=== PATIENT | female | born 1965 | race Caucasian/White ===

== ENCOUNTER → 2019-02-21 08:07 | Outpatient (BNVA) | payer MEDICAID, SELFPAY | PROVIDERS: Family Provider Nurse Practitioner; PCP Nurse Practitioner; Visit Provider Anesthesiology | DX: G89.29 Other chronic pain (principal); M54.5 Low back pain; M25.552 Pain in left hip; Z79.891 Long term (current) use of opiate analgesic | CPT/HCPCS: 99214 ==

== ENCOUNTER → 2019-03-21 09:50 | Outpatient (BNVA) | payer MEDICAID, SELFPAY | PROVIDERS: Family Provider Nurse Practitioner; PCP Nurse Practitioner; Visit Provider Nurse Practitioner | DX: E11.65 Type 2 diabetes mellitus with hyperglycemia (principal); J45.909 Unspecified asthma, uncomplicated; K21.9 Gastro-esophageal reflux disease without esophagitis; E03.8 Other specified hypothyroidism; R11.0 Nausea; R19.7 Diarrhea, unspecified; Z79.4 Long term (current) use of insulin; Z86.711 Personal history of pulmonary embolism | CPT/HCPCS: 80053; 80061; 81003; 83036 ==

== ENCOUNTER → 2019-04-17 11:49 | Outpatient (BNVA) | payer MEDICAID, SELFPAY | PROVIDERS: Family Provider Nurse Practitioner; PCP Nurse Practitioner; Visit Provider Nurse Practitioner | DX: F31.70 Bipolar disorder, currently in remission, most recent episode unspecified (principal); F41.1 Generalized anxiety disorder; F43.12 Post-traumatic stress disorder, chronic; G89.29 Other chronic pain; M54.5 Low back pain; M25.552 Pain in left hip; Z86.711 Personal history of pulmonary embolism; Z79.891 Long term (current) use of opiate analgesic | CPT/HCPCS: 99213; 99214 ==

== ENCOUNTER → 2019-04-22 10:27 | Outpatient (BNVA) | payer MEDICAID, SELFPAY | PROVIDERS: Family Provider Nurse Practitioner; PCP Nurse Practitioner; Visit Provider Counselor Professional | DX: F43.12 Post-traumatic stress disorder, chronic (principal); F41.1 Generalized anxiety disorder; F31.70 Bipolar disorder, currently in remission, most recent episode unspecified | CPT/HCPCS: 90834 ==

== ENCOUNTER → 2019-05-07 10:05 | Outpatient (BNVA) | payer MEDICAID, SELFPAY | PROVIDERS: Family Provider Nurse Practitioner; PCP Nurse Practitioner; Visit Provider Specialist | DX: G40.909 Epilepsy, unspecified, not intractable, without status epilepticus (principal); F43.10 Post-traumatic stress disorder, unspecified; F31.9 Bipolar disorder, unspecified | CPT/HCPCS: 99213 ==

== ENCOUNTER → 2019-05-20 07:58 | Outpatient (BNVA) | payer MEDICAID, SELFPAY | PROVIDERS: Family Provider Nurse Practitioner; PCP Nurse Practitioner; Visit Provider Counselor Professional | DX: F41.1 Generalized anxiety disorder (principal); F43.12 Post-traumatic stress disorder, chronic; F31.70 Bipolar disorder, currently in remission, most recent episode unspecified | CPT/HCPCS: 90834 ==

== ENCOUNTER → 2019-06-03 08:31 | Outpatient (BNVA) | payer MEDICAID, SELFPAY | PROVIDERS: Family Provider Nurse Practitioner; PCP Nurse Practitioner; Visit Provider Counselor Professional | DX: F43.12 Post-traumatic stress disorder, chronic (principal); F41.1 Generalized anxiety disorder; F31.70 Bipolar disorder, currently in remission, most recent episode unspecified | CPT/HCPCS: 90834 ==

== ENCOUNTER → 2019-06-10 08:27 | Outpatient (BNVA) | payer MEDICAID, SELFPAY | PROVIDERS: Family Provider Nurse Practitioner; PCP Nurse Practitioner; Visit Provider Counselor Professional | DX: F43.12 Post-traumatic stress disorder, chronic (principal); F41.1 Generalized anxiety disorder; F31.70 Bipolar disorder, currently in remission, most recent episode unspecified | CPT/HCPCS: 90832 ==

== ENCOUNTER → 2019-06-20 07:43 | Outpatient (BNVA) | payer MEDICAID, SELFPAY | PROVIDERS: Family Provider Nurse Practitioner; PCP Nurse Practitioner; Visit Provider Nurse Practitioner | DX: F43.12 Post-traumatic stress disorder, chronic (principal); F41.1 Generalized anxiety disorder | CPT/HCPCS: 99214 ==

== ENCOUNTER → 2019-06-24 08:45 | Outpatient (BNVA) | payer MEDICAID, SELFPAY | PROVIDERS: Family Provider Nurse Practitioner; PCP Nurse Practitioner; Visit Provider Counselor Professional | DX: F43.12 Post-traumatic stress disorder, chronic (principal); F41.1 Generalized anxiety disorder; F31.70 Bipolar disorder, currently in remission, most recent episode unspecified | CPT/HCPCS: 90834 ==

== ENCOUNTER → 2019-07-10 09:08 | Outpatient (BNVA) | payer MEDICAID, SELFPAY | PROVIDERS: Family Provider Nurse Practitioner; PCP Nurse Practitioner; Visit Provider Counselor Professional | DX: F41.1 Generalized anxiety disorder (principal); F43.12 Post-traumatic stress disorder, chronic | CPT/HCPCS: 90834 ==

== ENCOUNTER → 2019-07-17 08:28 | Outpatient (BNVA) | payer MEDICAID, SELFPAY | PROVIDERS: Family Provider Nurse Practitioner; PCP Nurse Practitioner; Visit Provider Counselor Professional | DX: F43.12 Post-traumatic stress disorder, chronic (principal); F41.1 Generalized anxiety disorder; F31.70 Bipolar disorder, currently in remission, most recent episode unspecified | CPT/HCPCS: 90834 ==

== ENCOUNTER → 2019-07-30 07:55 | Outpatient (BNVA) | payer MEDICAID, SELFPAY | PROVIDERS: Family Provider Nurse Practitioner; PCP Nurse Practitioner; Visit Provider Counselor Professional | DX: F43.12 Post-traumatic stress disorder, chronic (principal); F41.1 Generalized anxiety disorder; F31.70 Bipolar disorder, currently in remission, most recent episode unspecified | CPT/HCPCS: 90834 ==

== ENCOUNTER 2019-08-05 13:07 | Emergency (ER) | payer MEDICAID, SELFPAY | END 2019-08-05 18:32 | disposition admitted as inpatient to this hospital (09) | LOC: ER 08-06 00:33 | PROVIDERS: Emergency Provider Family Medicine; PCP Nurse Practitioner | DX: L02.211 Cutaneous abscess of abdominal wall (principal); E11.9 Type 2 diabetes mellitus without complications; Z79.4 Long term (current) use of insulin; E78.2 Mixed hyperlipidemia | CPT/HCPCS: 12345; 36415; 74177; 80053; 83036; 83605; 85025; 86140; 87040; 87070; 87077; 87186; 87205; 96365; 96375; 99283; 99285; J2270; J2765; J3370; J7050; Q9967 ==

== ENCOUNTER 2019-08-05 13:07 | Inpatient (IN) | payer MEDICAID, SELFPAY ==
[2019-08-05] VITALS (7 sets, daily range): BP systolic 104–126; BP diastolic 67–82; PULSE 88–106; RESP 12–20; TEMP 36.7–37; O2SAT 94–98; BMI 34.8
--- NOTE | 2019-08-05 16:12 | CTR_ITS ---
PROCEDURE INFORMATION: Exam: CT Abdomen And Pelvis With Contrast Exam date and time: 08/05/2019 4:41 PM Age: 53 years old Clinical indication: Other: Abscess on RT lower abd; Prior surgery; Surgery type: , hyst, appy, bowel, hernia, gb; Additional info: Abdominal wall abscess TECHNIQUE: Imaging protocol: Computed tomography of the abdomen and pelvis with intravenous contrast. Radiation optimization: All CT scans at this facility use at least one of these dose optimization techniques: automated exposure control; mA and/or kV adjustment per patient size (includes targeted exams where dose is matched to clinical indication); or iterative reconstruction. Contrast material: OMNI 300; Contrast volume: 95 ml; Contrast route: INTRAVENOUS (IV); COMPARISON: CT abdomen pelvis w con* [id number] 05/18/2017 2:52 PM RADIATION DOSE METRICS: Total DLP (mGy-cm): 1663.63 FINDINGS: Mediastinal space: A small hiatal hernia is present. Liver: The subcapsular mass right lobe of the liver image 36 is unchanged in size measuring 3.4 x 4.0 cm in size. This was previously biopsy. The remainder of the liver is homogeneous in density. Gallbladder and bile ducts: There has been a cholecystectomy. Pancreas: Normal. No ductal dilation. Spleen: Normal. No splenomegaly. Adrenals: Normal. No mass. Kidneys and ureters: There is no evidence of hydronephrosis. There is punctate nephrolithiasis. Stomach and bowel: There is a large amount of colonic stool compatible with diffuse constipation without impaction. Postoperative changes of a partial colectomy are noted. There is no evidence of intestinal perforation or obstruction. There is no evidence of colitis/diverticulitis. Appendix: No evidence of appendicitis. Intraperitoneal space: Unremarkable. No free air. No significant fluid collection. No abscess in the intraperitoneal cavity. Vasculature: The aorta demonstrates mild atherosclerotic calcification. Lymph nodes: Subcentimeter lymph nodes are noted in the groin right greater than left. There is no pathologic adenopathy. Bladder: There is nonspecific bladder wall thickening. This may be related to incomplete distention. Reproductive: There has been a hysterectomy. Bones/joints: Old left acetabular fracture with severe degenerative changes in the left hip are noted. Postoperative changes in the right femur partially imaged. There is no acute bony abnormality. Old postoperative changes left acetabulum are noted. Soft tissues: There is thickening of the skin surface and edema of the subcutaneous fat of the right lower abdominal wall/pannus compatible with cellulitis. There is no fluid collection or abscess. There is diastasis of the rectus abdominus muscles with midline ventral hernia containing fat and nonobstructed loops of bowel. CT/CT abdomen pelvis w con* [id number] IMPRESSION: 1. Probable cellulitis of the right lower abdominal wall. No abscess. 2. Unchanged masslike lesion in the right lobe of the liver that was previously biopsied. 3. Constipation. No bowel thickening or inflammatory changes. 4. Severe degenerative changes left hip with old left acetabular fracture deformity and postoperative changes. Radiation Dose CTDIVOL = (mGy): DLP = 1663.63 (mGy-cm)
[2019-08-05 16:28] LABS: Basophils # 0.1 10^3/uL (0.0-0.1); Basophils % 0.6 %; Eosinophils # 0.5 10^3/uL (0.0-0.8); Eosinophils % 5.5 %; Hematocrit 43.1 % (37.0-47.0); Hemoglobin 13.5 g/dL (11.5-15.3); Lymphocytes # 2.8 10^3/uL (0.8-4.8); Lymphocytes % 30.4 %; Mean Corpuscular HGB Conc 31.3 g/dL (30.0-36.0); Mean Corpuscular Hemoglobin 27.9 pg (28.0-34.0); Mean Platelet Volume 10.4 fL (7.4-10.4); Monocytes # 0.6 10^3/uL (0.2-0.9); Monocytes % 6.9 %; Neutrophils # 5.1 10^3/uL (1.8-7.7); Neutrophils % 55.9 %; Nucleated Red Blood Cells % 0 %; Platelet Count 315 10^3/cmm (130-400); Red Blood Count 4.84 10^6/uL (4.1-5.3); Red Cell Distribution Width 13.2 % (12.1-15.1); White Blood Count 9.1 10^3/uL (4.0-10.0)
[2019-08-05] MEDS: morphine 4 mg/mL SDV 1 mL IVP (16:29)
[2019-08-05] MEDS: metoclopramide 5 mg/mL SDV 2 mL 10 MG IVP (16:30)
[2019-08-05 16:46] LABS: Alanine Aminotransferase 24 U/L (0-33); Albumin Level 3.8 g/dL (3.5-5.2); Alkaline Phosphatase 160 IU/L (35-105); Anion Gap 17.9 (5-19); Aspartate Amino Transferase 18 U/L (0-32); Blood Urea Nitrogen 11 mg/dL (6-20); Calcium 9.1 mg/dL (8.5-10.5); Carbon Dioxide 23 mmol/L (22-29); Chloride 102 mmol/L (98-107); Globulin 2.9 g/dL (1.3-4.6); Glomerular Filtration Rate 87.9 mL/min (90-130); Glucose 334 mg/dL (65-115); Osmolality Calculated 297 mOsm/kg (285-295); Potassium 3.9 mmol/L (3.5-5.1); Sodium 139 mmol/L (136-145); Total Bilirubin 0.2 mg/dL (0.15-1.2); Total Protein 6.7 g/dL (6.6-8.7)
[2019-08-05] MEDS: iohexol 300 mg/mL 100 mL Btl IV (17:05)
[2019-08-05 17:32] LABS: C Reactive Protein 14.8 mg/L (0.0-4.9)
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
[2019-08-05 21:02] LABS: Alanine Aminotransferase 23 U/L (0-33); Albumin Level 3.9 g/dL (3.5-5.2); Alkaline Phosphatase 164 IU/L (35-105); Anion Gap 16.5 (5-19); Aspartate Amino Transferase 17 U/L (0-32); Blood Urea Nitrogen 10 mg/dL (6-20); Carbon Dioxide 26 mmol/L (22-29); Chloride 101 mmol/L (98-107); Globulin 2.7 g/dL (1.3-4.6); Glomerular Filtration Rate 87.9 mL/min (90-130); Glucose 296 mg/dL (65-115); Osmolality Calculated 297 mOsm/kg (285-295); Potassium 3.5 mmol/L (3.5-5.1); Sodium 140 mmol/L (136-145); Total Bilirubin 0.2 mg/dL (0.15-1.2); Total Protein 6.6 g/dL (6.6-8.7)
[2019-08-05 22:09] LABS: Glucose Point of Care 316 mg/dL (70-110)
[2019-08-05] MEDS: prazosin 1 mg Capsule PO (22:11)
[2019-08-05] MEDS: oxyCODONE-APAP 5-325 mg Tablet 1 TAB PO (22:11)
[2019-08-05] MEDS: morphine ER (12 HR) 15 mg Tablet PO (22:11)
[2019-08-05] MEDS: gabapentin 300 mg Capsule PO (22:11)
[2019-08-05] MEDS: methocarbamol 750 mg Tablet PO (22:11)
[2019-08-05 22:31] LABS: Gamma Glutamyl Transferase 57 U/L (5-36)
[2019-08-05] MEDS: levETIRAcetam 500 mg Tablet PO (22:42)
[2019-08-05] MEDS: montelukast sodium 10 mg Tablet PO (22:42)
[2019-08-05] MEDS: CELEcoxib 200 mg Capsule PO (22:42)
[2019-08-05] MEDS: zonisamide 100 MG Capsule 400 MG PO (22:43)
[2019-08-05] MEDS: hyDROXYzine 25 mg Capsule PO (23:24)
[2019-08-06] VITALS (10 sets, daily range): BP systolic 95–111; BP diastolic 64–75; PULSE 76–92; RESP 16–20; TEMP 36.4–36.8; O2SAT 92–98
[2019-08-06] MEDS: morphine ER (12 HR) 15 mg Tablet PO ×3 (03:59→18:46)
[2019-08-06 06:35] LABS: Glucose Point of Care 198 mg/dL (70-110)
[2019-08-06 07:43] LABS: Basophils # 0.1 10^3/uL (0.0-0.1); Basophils % 0.6 %; Eosinophils # 0.5 10^3/uL (0.0-0.8); Eosinophils % 4.6 %; Hematocrit 43.5 % (37.0-47.0); Hemoglobin 13.6 g/dL (11.5-15.3); Mean Corpuscular HGB Conc 31.3 g/dL (30.0-36.0); Mean Corpuscular Hemoglobin 28.1 pg (28.0-34.0); Mean Corpuscular Volume 89.9 fL (81-99); Mean Platelet Volume 11.1 fL (7.4-10.4); Monocytes # 0.8 10^3/uL (0.2-0.9); Monocytes % 7.4 %; Neutrophils # 5.7 10^3/uL (1.8-7.7); Neutrophils % 50.8 %; Nucleated Red Blood Cells % 0 %; Platelet Count 342 10^3/cmm (130-400); Red Blood Count 4.84 10^6/uL (4.1-5.3); Red Cell Distribution Width 13.1 % (12.1-15.1); White Blood Count 11.2 10^3/uL (4.0-10.0)
[2019-08-06] MEDS: albuterol 8 gm MDI 1 PUFF INHALATION ×2 (08:12→20:43)
[2019-08-06] MEDS: CELEcoxib 200 mg Capsule PO ×2 (08:25→17:41)
[2019-08-06] MEDS: zonisamide 100 MG Capsule 400 MG PO (08:25)
[2019-08-06] MEDS: levETIRAcetam 500 mg Tablet PO ×2 (08:26→17:41)
[2019-08-06] MEDS: apixaban 5 mg Tablet PO ×2 (08:26→17:41)
[2019-08-06] MEDS: atorvastatin 40 mg Tablet PO (08:26)
[2019-08-06] MEDS: duloxetine 60 mg Capsule 120 MG PO (08:26)
[2019-08-06] MEDS: gabapentin 300 mg Capsule PO ×3 (08:26→21:32)
[2019-08-06] MEDS: thyroid 60 mg Tablet 120 MG PO (08:28)
[2019-08-06] MEDS: methocarbamol 750 mg Tablet PO ×2 (08:28→17:41)
[2019-08-06] MEDS: oxyCODONE-APAP 5-325 mg Tablet 1 TAB PO ×2 (08:29→17:41)
--- NOTE | 2019-08-06 09:45 | PC.CHAP ---
Pastoral Care Encounter/Spiritual Assessment Type of Contact [] Declined blind escort visit [] Patient/Family/Request visit [] Outpatient visit [] Follow-up visit [] Physician referral [] Code/Alert [x] Routine visit [] Staff referral [] Actively dying [x] Patient sleeping [] Family support [] [] Out of room [] Palliative care [] [] Receiving care in room [] Pre-surgical visit [] Trauma [] Long length of stay [] ICU visit [] Other: Relational/Emotional Strength [] Patient feels connected with others/family/visitors/staff [] Distress [] Loneliness/isolation [] Abandonment Spirituality of Patient [] Person of Amanda [] Attends Pentecostal of their Amanda [] Believes in Prayer [] Reads Bible or Mormonism materials [] There are Spiritual issues to be addressed [employer] Pumper Interventions [x] Prayer [] Active listening [] Non-anxious presence [] Spiritual/emotional support [] Crisis/trauma care [] Spiritual counseling [] Bereavement support [] Provided bereavement packet [] Provided Bible/devotional materials [] Provided toy/stuffed animal, coloring book to patient or family member [] Provided Communion [] Anointing/[place] [] Salvation [x] Completed spiritual assessment [] Other: Impact on Illness or Injury [] Angry [] Fearful [] Anxious [] Often cries [] Exhaustion [] Unable to work [] Unable to attend mandaen [] Unable to walk/stand [] Unable to read [] Unable to drive [] Unable to eat/drink [] Unable to sleep [] Unable to be with family [] Patient intubated [] Other: Summary Time spent with patient
[2019-08-06 11:57] LABS: Glucose Point of Care 334 mg/dL (70-110)
[2019-08-06] MEDS: levofloxacin-dextrose 5 % 750 MG/150 ML PREMIX 100 MG IV (14:57)
[2019-08-06 15:31] LABS: Lactic Sepsis W/Reflex 1.3 mmol/L (0.5-2.2)
[2019-08-06 17:19] LABS: Glucose Point of Care 213 mg/dL (70-110)
[2019-08-06] MEDS: lurasidone 20 mg Tablet 60 MG PO (17:41)
--- NOTE | 2019-08-06 17:55 | PC.RESP ---
Pulmonary Rehab information sent to patient.
--- NOTE | 2019-08-06 19:38 | US_ITS ---
WS: [id number] INDICATION: Evaluate for abscess TECHNIQUE: Ultrasound soft tissue FINDINGS: Ultrasound soft tissue area of concern left axilla. No evidence of drainable abscess or flu id collection. Skin thickening consistent with cellulitis. Prominent lymph nodes likely reactive with maintained fatty hilum. US/US soft tissue/extremity 76899 IMPRESSION: No evidence of abscess or drainable fluid collection in the area of concern.
[2019-08-06 20:22] LABS: Glucose Point of Care 205 mg/dL (70-110)
--- NOTE | 2019-08-06 20:24 | P.PN_ITS ---
Subjective Subjective: Interval history: Area on the belly slightly tender and she feels like it is flaring up . Vitals/I&O/Wt Last Vital Signs Temp 98.2 F 08/06/19 16:00 Pulse 83 08/06/19 16:00 Resp 18 08/06/19 17:41 BP 95/64 08/06/19 16:00 Pulse Ox 95 08/06/19 16:00 08/06/19 08/06/19 08/06/19 06:59 14:59 22:59 Intake Total 200 / 450 300 / 300 490 / 790 Output Total 0 / 0 Balance 200 / 450 300 / 300 490 / 790 Weight last 48 hrs Weight 97.976 kg Physical Exam Const: COMMON NORMALS: no acute distress and patient oriented x3 NUTRITIONAL APPEARANCE: obese HENMT: COMMON NORMALS: oropharynx normal Neck/C-Spine: COMMON NORMALS: no JVD Resp: COMMON NORMALS: normal respiratory effort and clear to auscultation beka aterally AUSCULTATION: clear to auscultation bilaterally Cardio: COMMON NORMALS: no JVD, regular rhythm, S1 normal heart sound present, S2 normal heart sound present and No murmurs present (Cardio) RHYTHM: regular rhythm HEART SOUNDS: S1 normal heart sound present and S2 normal heart sound present GI: COMMON NORMALS: Normal to inspection, nondistended, normoactive bowel sounds present, Soft to palpation and non-tender PALPATION: Yes Soft to palpation Extremity: COMMON NORMALS: no joint enlargement and no pedal edema Neuro: COMMON NORMALS: patient oriented x3 and moves all extremities Skin: COMMON NORMALS: no rashes or lesions noted GENERAL SKIN EXAM: no rashes or lesions noted LESIONS: lesion noted (Unchanged ulceration about 3 cm in parameter on anterior right side abdomen, with surrounding and underlying induration and erythema extending about 7 cm more so laterally than superiorly/inferiorly. Small amount of purulent appearing drainage from the shallow ulceration noted on dressing. Tiny amount of necrotic tissue at the margins, without undermining or tunneling.) and other (2 papules noted in inferior posterior aspect of left axilla erythematous, without surrounding erythema or induration. No drainage noted.) Data : 08/06/19 07:10 08/05/19 20:30 Micro: Microbiology 08/05/19 16:15 Blood Culture - Preliminary Blood NEGATIVE TO DATE 08/05/19 16:20 Blood Culture - Preliminary Blood NEGATIVE TO DATE 08/06/19 13:03 Blood Culture - Preliminary Blood SPECIMEN COLLECTED 08/06/19 13:10 Blood Culture - Preliminary Blood SPECIMEN COLLECTED 08/05/19 17:33 Gram Stain - Final Abdomen A&P Assessment and plan (1) Cellulitis: Slight increase for a more obvious appearance of necrotic tissue at the base of the ulceration after application of Hydrofera Blue. Small papule which is deroofed and left axilla appears unchanged. No drainage. Discussed with the patient. Requested dressing changes be done with Santyl as well. Continue vancomycin, Levaquin on board due to diabetes, until some results from culture available. Today WBC count is up to 11.2. She is afebrile although earlier had some low- grade tach with heart in the 90s. Concern for possible sepsis. Requested blood cultures. Checked lactic acid and was normal. Long-term needs optimization of diabetes control. Discussed all the above with her, as well as need for follow-up with PCP and wound care after discharge. She is agreeable with assessment and plan, and questions were answered. Status: Acute Additional A&P Information Oscillated alk phos elevation: GGT with mild elevation. She has not had right upper quadrant pain. Would continue follow-up in outpatient setting. Other liver parameters are normal. DM2: At home she takes Byetta, farxIGA, Levemir and NovoLog sliding scale. Continue consistent carbohydrate diet. Here we will continue Levemir, rapid acting sliding scale. Continue follow-up with primary care provider after discharge. History of PE: Continue Eliquis Asthma, COPD: Not in exacerbation. Continue inhalers. PRIMITIVO: Continue nightly CPAP Seizure disorder: Continue medications. Follows up with neurology in office. Chronic pain: Continue her pain medications and muscle relaxers, continue follow-up with pain clinic. Hypothyroidism: Continue [place] Night terrors: Continue prazosin Other chronic conditions: Continue home medications for HLD, GERD, insomnia and others. Attestations Medical Necessity Statement*: Continue admission for assessment management of cellulitis, nonhealing ulceration on abdominal wall, concern for possible sepsis. Coding Level of Care Code Acute Civil Laboratory Technician for [facility] Diagnoses Cellulitis L03.90
[2019-08-06] MEDS: montelukast sodium 10 mg Tablet PO (21:32)
[2019-08-06] MEDS: prazosin 1 mg Capsule PO (21:32)
[2019-08-07] VITALS (12 sets, daily range): BP systolic 107–115; BP diastolic 67–75; PULSE 75–89; RESP 15–20; TEMP 36.5–36.9; O2SAT 91–98
[2019-08-07] MEDS: morphine ER (12 HR) 15 mg Tablet PO ×3 (03:58→20:40)
[2019-08-07 05:59] LABS: Basophils % 0.4 %; Eosinophils # 0.4 10^3/uL (0.0-0.8); Eosinophils % 4.4 %; Hematocrit 40.1 % (37.0-47.0); Hemoglobin 12.5 g/dL (11.5-15.3); Lymphocytes % 24.7 %; Mean Corpuscular HGB Conc 31.2 g/dL (30.0-36.0); Mean Corpuscular Hemoglobin 27.8 pg (28.0-34.0); Mean Corpuscular Volume 89.3 fL (81-99); Mean Platelet Volume 10.9 fL (7.4-10.4); Monocytes # 0.5 10^3/uL (0.2-0.9); Monocytes % 6.6 %; Neutrophils % 63.1 %; Nucleated Red Blood Cells % 0 %; Platelet Count 293 10^3/cmm (130-400); Red Blood Count 4.49 10^6/uL (4.1-5.3); Red Cell Distribution Width 13.2 % (12.1-15.1)
[2019-08-07 06:36] LABS: Alanine Aminotransferase 17 U/L (0-33); Albumin Level 3.4 g/dL (3.5-5.2); Alkaline Phosphatase 141 IU/L (35-105); Anion Gap 15.1 (5-19); Aspartate Amino Transferase 12 U/L (0-32); Blood Urea Nitrogen 15 mg/dL (6-20); Calcium 8.9 mg/dL (8.5-10.5); Carbon Dioxide 22 mmol/L (22-29); Chloride 107 mmol/L (98-107); Globulin 2.6 g/dL (1.3-4.6); Glomerular Filtration Rate 87.9 mL/min (90-130); Glucose 264 mg/dL (65-115); Osmolality Calculated 295 mOsm/kg (285-295); Potassium 4.1 mmol/L (3.5-5.1); Sodium 140 mmol/L (136-145); Total Bilirubin 0.2 mg/dL (0.15-1.2)
[2019-08-07 07:08] LABS: Glucose Point of Care 223 mg/dL (70-110)
[2019-08-07] MEDS: atorvastatin 40 mg Tablet PO (08:30)
[2019-08-07] MEDS: CELEcoxib 200 mg Capsule PO ×2 (08:30→18:11)
[2019-08-07] MEDS: duloxetine 60 mg Capsule 120 MG PO (08:30)
[2019-08-07] MEDS: thyroid 60 mg Tablet 120 MG PO (08:30)
[2019-08-07] MEDS: gabapentin 300 mg Capsule PO ×3 (08:31→20:40)
[2019-08-07] MEDS: zonisamide 100 MG Capsule 400 MG PO (08:31)
[2019-08-07] MEDS: apixaban 5 mg Tablet PO ×2 (08:31→18:11)
[2019-08-07] MEDS: levETIRAcetam 500 mg Tablet PO ×2 (08:31→18:11)
[2019-08-07] MEDS: oxyCODONE-APAP 5-325 mg Tablet 1 TAB PO ×2 (08:37→14:57)
[2019-08-07] MEDS: albuterol 8 gm MDI 1 PUFF INHALATION ×2 (08:40→19:57)
[2019-08-07] MEDS: methocarbamol 750 mg Tablet PO ×3 (08:48→23:04)
[2019-08-07 11:03] LABS: Glucose Point of Care 276 mg/dL (70-110)
[2019-08-07] MEDS: collagenase oint 30 gm 1 APPLIC TOPICAL (12:23)
[2019-08-07] MEDS: levofloxacin-dextrose 5 % 750 MG/150 ML PREMIX 100 MG IV (14:58)
[2019-08-07 16:43] LABS: Vancomycin Trough 13.6 ug/mL (10-15)
[2019-08-07 16:51] LABS: Glucose Point of Care 204 mg/dL (70-110)
[2019-08-07] MEDS: lurasidone 20 mg Tablet 60 MG PO (18:11)
--- NOTE | 2019-08-07 20:33 | P.PN_ITS ---
Subjective Subjective: Interval history: She is feeling about her usual self. Denies any chills. No abdominal or axilla pain. Vitals/I&O/Wt Last Vital Signs Temp 97.9 F 08/07/19 16:00 Pulse 80 08/07/19 20:01 Resp 18 08/07/19 19:56 BP 115/75 08/07/19 16:00 Pulse Ox 95 08/07/19 20:01 08/07/19 08/07/19 08/07/19 06:59 14:59 22:59 Intake Total 500 / 1440 460 / 460 470 / 930 Balance 500 / 1440 460 / 460 470 / 930 Physical Exam Const: COMMON NORMALS: no acute distress and patient oriented x3 NUTRITIONAL APPEARANCE: obese HENMT: COMMON NORMALS: oropharynx normal Neck/C-Spine: COMMON NORMALS: no JVD Resp: COMMON NORMALS: normal respiratory effort and clear to auscultation bilaterally AUSCULTATION: clear to auscultation bilaterally Cardio: COMMON NORMALS: no JVD, regular rhythm, S1 normal heart sound present, S2 normal heart sound present and No murmurs present (Cardio) RHYTHM: regular rhythm HEART SOUNDS: S1 normal heart sound present and S2 normal heart sound present GI: COMMON NORMALS: Normal to inspection, nondistended, normoactive bowel sounds present, Soft to palpation and non-tender PALPATION: Yes Soft to palpation Extremity: COMMON NORMALS: no joint enlargement and no pedal edema Neuro: COMMON NORMALS: patient oriented x3 and moves all extremities Skin: LESIONS: lesion noted (More necrotic tissue at the base of the ulcer on the abdomen, with reduction of surrounding erythema. Covered with Hydrofera Blue.) and other (2 papules noted in inferior posterior aspect of left axilla erythematous, without surrounding erythema or induration. No drainage noted.) Data : 08/07/19 05:25 08/07/19 05:25 Micro: Microbiology 08/06/19 13:10 Blood Culture - Preliminary Blood NEGATIVE TO DATE 08/06/19 13:03 Blood Culture - Preliminary Blood NEGATIVE TO DATE 08/05/19 17:33 Gram Stain - Final Abdomen Wound Culture - Preliminary Staphylococcus aureus 08/05/19 16:15 Blood Culture - Preliminary Blood NEGATIVE TO DATE 08/05/19 16:20 Blood Culture - Preliminary Blood NEGATIVE TO DATE A&P Assessment and plan (1) Cellulitis: Some improvement in area of cellulitis on the abdomen today. Some worsening of necrotic tissue at the base of the ulcer. Santyl was applied today. Cultures growing Staphylococcus aureus. Follow-up final results to assess if MRSA. Leukocytosis has resolved. No tachycardia. Lactic acid was normal. Appears possible sepsis resolving. If continues to improve, and we can get culture results back, perhaps may transition to oral antibiotics and discharged with wound care follow-up. Small papule which is deroofed and left axilla appears unchanged. No drainable fluid collection noted on ultrasound. Continue vancomycin, will stop Levaquin on board due to diabetes, until some results from culture available. Today WBC count is up to 11.2. She is afebrile although earlier had some low- grade tach with heart in the 90s. Concern for possible sepsis. Requested blood cultures. Checked lactic acid and was normal. Long-term needs optimization of diabetes control. Discussed all the above with her, as well as need for follow-up with PCP and wound care after discharge. She is agreeable with assessment and plan, and questions were answered. Status: Acute Additional A&P Information Isolated alk phos elevation: GGT with mild elevation. She has not had right upper quadrant pain. Would continue follow-up in outpatient setting. Other liver parameters are normal. DM2: At home she takes Byetta, farxIGA, Levemir and NovoLog sliding scale. Continue consistent carbohydrate diet. Here we will continue Levemir, rapid ac ting sliding scale. Continue follow-up with primary care provider after discharge. History of PE: Continue Eliquis Asthma, COPD: Not in exacerbation. Continue inhalers. PRIMITIVO: Continue nightly CPAP Seizure disorder: Continue medications. Follows up with neurology in office. Chronic pain: Continue her pain medications and muscle relaxers, continue follow-up with pain clinic. Hypothyroidism: Continue [place] Night terrors: Continue prazosin Other chronic conditions: Continue home medications for HLD, GERD, insomnia and others. Attestations Medical Necessity Statement*: Continue admission for assessment management of cellulitis, wound infection in the setting of poorly controlled diabetes, failed attempt at outpatient management. Coding Level of Care Code Acute Instructor Creeler for [facility] Diagnoses Cellulitis L03.90
[2019-08-07] MEDS: prazosin 1 mg Capsule PO (20:40)
[2019-08-07] MEDS: montelukast sodium 10 mg Tablet PO (20:40)
[2019-08-07 21:03] LABS: Glucose Point of Care 240 mg/dL (70-110)
[2019-08-08] VITALS (8 sets, daily range): BP systolic 102–108; BP diastolic 60–66; PULSE 70–84; RESP 16–18; TEMP 36.4–36.6; O2SAT 95–96
[2019-08-08] MEDS: morphine ER (12 HR) 15 mg Tablet PO ×2 (03:53→11:43)
[2019-08-08 05:42] LABS: Basophils % 0.5 %; Eosinophils # 0.4 10^3/uL (0.0-0.8); Hematocrit 40.8 % (37.0-47.0); Hemoglobin 12.3 g/dL (11.5-15.3); Lymphocytes # 2.3 10^3/uL (0.8-4.8); Lymphocytes % 26.9 %; Mean Corpuscular HGB Conc 30.1 g/dL (30.0-36.0); Mean Corpuscular Hemoglobin 27.5 pg (28.0-34.0); Mean Corpuscular Volume 91.1 fL (81-99); Mean Platelet Volume 11.3 fL (7.4-10.4); Monocytes # 0.7 10^3/uL (0.2-0.9); Monocytes % 8.1 %; Neutrophils # 4.9 10^3/uL (1.8-7.7); Neutrophils % 58.8 %; Nucleated Red Blood Cells % 0 %; Platelet Count 319 10^3/cmm (130-400); Red Blood Count 4.48 10^6/uL (4.1-5.3); Red Cell Distribution Width 13.4 % (12.1-15.1); White Blood Count 8.4 10^3/uL (4.0-10.0)
[2019-08-08 06:00] LABS: Alanine Aminotransferase 16 U/L (0-33); Albumin Level 3.2 g/dL (3.5-5.2); Alkaline Phosphatase 128 IU/L (35-105); Aspartate Amino Transferase 14 U/L (0-32); Blood Urea Nitrogen 13 mg/dL (6-20); Calcium 8.5 mg/dL (8.5-10.5); Carbon Dioxide 21 mmol/L (22-29); Chloride 108 mmol/L (98-107); Globulin 2.9 g/dL (1.3-4.6); Glucose 268 mg/dL (65-115); Osmolality Calculated 296 mOsm/kg (285-295); Sodium 140 mmol/L (136-145); Total Bilirubin 0.2 mg/dL (0.15-1.2); Total Protein 6.1 g/dL (6.6-8.7)
[2019-08-08 07:07] LABS: Glucose Point of Care 195 mg/dL (70-110)
[2019-08-08] MEDS: duloxetine 60 mg Capsule 120 MG PO (08:13)
[2019-08-08] MEDS: CELEcoxib 200 mg Capsule PO (08:14)
[2019-08-08] MEDS: oxyCODONE-APAP 5-325 mg Tablet 1 TAB PO (08:14)
[2019-08-08] MEDS: atorvastatin 40 mg Tablet PO (08:14)
[2019-08-08] MEDS: gabapentin 300 mg Capsule PO (08:14)
[2019-08-08] MEDS: levETIRAcetam 500 mg Tablet PO (08:14)
[2019-08-08] MEDS: zonisamide 100 MG Capsule 400 MG PO (08:15)
[2019-08-08] MEDS: methocarbamol 750 mg Tablet PO (08:16)
[2019-08-08] MEDS: apixaban 5 mg Tablet PO (09:00)
[2019-08-08] MEDS: thyroid 60 mg Tablet 120 MG PO (09:00)
[2019-08-08] MEDS: collagenase oint 30 gm 1 APPLIC TOPICAL (09:00)
[2019-08-08] MEDS: albuterol 8 gm MDI 1 PUFF INHALATION (09:13)
[2019-08-08 11:03] LABS: Glucose Point of Care 279 mg/dL (70-110)
--- NOTE | 2019-08-08 12:24 | P.DS_ITS ---
Discharge Providers Date of Admission: 08/05/19 18:00 Date of Discharge: August 08, 2019 Attending Provider at Admission: Jeremy Rosa Attending Provider at Discharge: Jeremy Rosa Primary Care Provider: HAKAN Irvin Diagnoses at Discharge Discharge Diagnosis (1) Cellulitis: Status: Acute Problem details: MRSA. Ulcer + cellulitis. Suboptimally controlled DM. Reason for Visit Reason for Visit: sent by doc Hospital Course Hospital Course: Pleasant 53-year-old lady with history of diabetes, and other comorbidities, with noted A1c of 8.5, was admitted for assessment of management of wound/ulceration on anterior abdominal wall with surrounding cellulitis which did not respond to outpatient treatment with topical antibiotic. She was also found to have a small reddish papule in the left armpit with some surrounding swelling initially. She was treated with IV antibiotics, with noted possible sepsis in the hospital with leukocytosis, tachycardia. Wound cultures eventually growing MRSA and group B strep. Her leukocytosis and other signs of sepsis resolved. She is feeling better. Erythema is improving. There is a swelling under the ulceration which is somewhat persistent, with mild improvement since admission, however, still there. On admission was assessed by CT scan due to this, and without finding of any drainable abscess. Left armpit abscess by ultrasonography also without finding of drainable effusion. She is referred to wound care clinic, as well as primary care provider for follow-up on wound healing, please reassess for any need of IND in case of any worsening or lack of improvement. Due to thin layer of necrotic tissue at the base of the ulcer, she is instructed to change dressings with Santyl for enzymatic debridement. Please continue working with her to optimize control of diabetes. Consider MRSA eradication therapy. Avoid steroids or immunosuppressive medications. Physical Exam Const: COMMON NORMALS: no acute distress and patient oriented x3 NUTRITIONAL APPEARANCE: obese OTHER: She is feeling better and is wanting to go home. HENMT: COMMON NORMALS: oropharynx normal Neck/C-Spine: COMMON NORMALS: no JVD Resp: COMMON NORMALS: normal respiratory effort and clear to auscultation bilaterally AUSCULTATION: clear to auscultation bilaterally Cardio: COMMON NORMALS: no JVD, regular rhythm, S1 normal heart sound present, S2 normal heart sound present and No murmurs present (Cardio) RHYTHM: regular rhythm HEART SOUNDS: S1 normal heart sound present and S2 normal heart sound present GI: COMMON NORMALS: Normal to inspection, nondistended, normoactive bowel sounds present, Soft to palpation and non-tender PALPATION: Yes Soft to palpation Extremity: COMMON NORMALS: no joint enlargement and no pedal edema Neuro: COMMON NORMALS: patient oriented x3 and moves all extremities Skin: COMMON NORMALS: no rashes or lesions noted GENERAL SKIN EXAM: no rashes or lesions noted LESIONS: lesion noted (More necrotic tissue at the base of the ulcer on the abdomen, with reduction of surrounding erythema. Covered with Hydrofera Blue.) and other (2 papules noted in inferior posterior aspect of left axilla erythematous, without surrounding erythema or induration. No drainage noted.) Discharge Data Data Completed and Pending: Completed Studies During Hospitalization Category Date Time Status CT abdomen pelvis w con* [id number] Urge nt Cat Scan 08/05/19 16:12 Completed US soft tissue/ex tremity 27683 Rout ine Ultrasound 08/06/19 19:38 Completed Pending at discharge Category Date Time Status Blood Culture Sta t Lab 08/05/19 16:15 Results Blood Culture Sta t Lab 08/06/19 13:03 Results Complete Blood Co unt w/Auto AM LABS Lab 08/09/19 04:00 Ordered Comprehensive Met abolic Panel AM LA BS Lab 08/09/19 04:00 Ordered Wound Culture and Gram Stain Stat Lab 08/05/19 17:33 Results Labs from last 24 hours 08/08/19 08/08/19 08/08/19 10:49 07:01 04:45 WBC RBC Hgb Hct MCV MCH MCHC RDW Plt Count MPV Neut % (Auto) Lymph % (Auto) [place] % (Auto) Eos % (Auto) Baso % (Auto) Neut # (Auto) Lymph # (Auto) [place] # (Auto) Eos # (Auto) Baso # (Auto) Nucleated RBC % (a uto) Nucleated RBCs # Sodium 140 Potassium 4.0 Chloride 108 H Carbon Dioxide 21 L Anion Gap 15.0 BUN 13 Creatinine 0.6 GFR Calculation 105.0 Glucose 268 H POC Glucose 279 195 Calculated Osmolal ity 296 H Calcium 8.5 Total Bilirubin 0.2 AST 14 ALT 16 Alkaline Phosphata se 128 H Total Protein 6.1 L Albumin 3.2 L Globulin 2.9 Vancomycin Trough 08/08/19 08/07/19 08/07/19 04:45 20:46 16:44 WBC 8.4 RBC 4.48 Hgb 12.3 Hct 40.8 MCV 91.1 MCH 27.5 L MCHC 30.1 RDW 13.4 Plt Count 319 MPV 11.3 H Neut % (Auto) 58.8 Lymph % (Auto) 26.9 [place] % (Auto) 8.1 Eos % (Auto) 5.0 Baso % (Auto) 0.5 Neut # (Auto) 4.9 Lymph # (Auto) 2.3 [place] # (Auto) 0.7 Eos # (Auto) 0.4 Baso # (Auto) 0.0 Nucleated RBC % (a uto) 0 Nucleated RBCs # 0.0 Sodium Potassium Chloride Carbon Dioxide Anion Gap BUN Creatinine GFR Calculation Glucose POC Glucose 240 204 Calculated Osmolal ity Calcium Total Bilirubin AST ALT Alkaline Phosphata se Total Protein Albumin Globulin Vancomycin Trough 08/07/19 14:46 WBC RBC Hgb Hct MCV MCH MCHC RDW Plt Count MPV Neut % (Auto) Lymph % (Auto) [place] % (Auto) Eos % (Auto) Baso % (Auto) Neut # (Auto) Lymph # (Auto) [place] # (Auto) Eos # (Auto) Baso # (Auto) Nucleated RBC % (a uto) Nucleated RBCs # Sodium Potassium Chloride Carbon Dioxide Anion Gap BUN Creatinine GFR Calculation Glucose POC Glucose Calculated Osmolal ity Calcium Total Bilirubin AST ALT Alkaline Phosphata se Total Protein Albumin Globulin Vancomycin Trough 13.6 Vitals: Last Vital Signs Temp 97.8 F 08/08/19 11:15 Pulse 80 08/08/19 11:15 Resp 17 08/08/19 11:15 BP 108/62 08/08/19 11:15 Pulse Ox 96 08/08/19 11:15 Discharge Plan Discharge Patient Disposition: Home Health Service Condition: Stable Prescriptions: New levofloxacin [Levaquin] 750 mg tablet 750 mg PO DAILY 7 Days RF: 0 Continued Eliquis 5 mg tablet 5 mg PO BID Qty: 60 RF: 2 Byetta 10 mcg/dose(250 mcg/mL) 2.4 mL pen injector 10 mcg SUBCUT BID Qty: 2.4 RF: 2 albuterol sulfate [ProAir HFA] 90 mcg/actuation HFA aerosol inhaler 1 inh INHALATION QID PRN (Reason: shortness of breath or wheezing) Qty: 6.7 RF: 2 atorvastatin [Lipitor] 40 mg tablet 40 mg PO QDAY Qty: 30 RF: 2 cholecalciferol (vitamin D3) 125 mcg (5,000 unit) capsule 5,000 unit PO QDAY Qty: 30 RF: 2 Farxiga 10 mg tablet 10 mg PO QDAY Qty: 30 RF: 2 famotidine [Pepcid] 20 mg tablet 20 mg PO QDAY Qty: 30 RF: 2 Flovent HFA 110 mcg/actuation HFA aerosol inhaler 2 puff INHALATION BID Qty: 12 RF: 2 insulin aspart U-100 [Novolog Flexpen U-100 Insulin] 100 unit/mL (3 mL) insulin pen See Rx Instructions SUBCUT TID Qty: 15 RF: 2 Levemir FlexTouch U-100 Insuln 100 unit/mL (3 mL) insulin pen 54 unit SUBCUT DAILY Qty: 15 RF: 2 montelukast [Singulair] 10 mg tablet 10 mg PO QDAY Qty: 30 RF: 2 thyroid (pork) [Lovilia Thyroid] 120 mg tablet 120 mg PO QDAY Qty: 30 RF: 2 promethazine 25 mg tablet 25 mg PO Q6H PRN (Reason: nausea and vomiting) Qty: 20 RF: 0 loperamide 2 mg capsule 2 mg PO Q4H PRN (Reason: loose stool) Qty: 10 RF: 0 (DME) FreeStyle Lite Strips Strip See Rx Instructions .ROUTE .MEDSUPPLY Qty: 100 RF: 5 (DME) lancets [FreeStyle Lancets] 28 gauge misc See Rx Instructions .ROUTE .MEDSUPPLY Qty: 100 RF: 5 (DME) pen needle, diabetic [BD Lina 2nd Gen Pen Needle] 32 gauge x 5/32 needle See Rx Instructions .ROUTE .MEDSUPPLY Qty: 100 RF: 5 duloxetine [Cymbalta] 60 mg capsule,delayed release(DR/EC) 120 mg PO DAILY Qty: 60 RF: 2 Latuda 60 mg tablet 60 mg PO DAILY Qty: 30 RF: 2 prazosin 1 mg capsule 1 mg PO .HS Qty: 30 RF: 2 hydroxyzine pamoate 25 mg capsule 25 mg PO TID PRN (Reason: anxiety) Qty: 90 RF: 2 zolpidem [Ambien] 10 mg tablet 10 mg PO .at bed PRN (Reason: sleep) Qty: 30 RF: 2 celecoxib [Celebrex] 200 mg capsule 200 mg PO BID Qty: 60 RF: 1 gabapentin 300 mg capsule 300 mg PO TID 30 Days Qty: 90 RF: 1 methocarbamol 750 mg tablet 750 mg PO TID PRN (Reason: spasms) 30 Days Qty: 90 RF: 1 morphine 15 mg tablet extended release 15 mg PO Q8H 30 Days Qty: 90 RF: 0 levetiracetam [Keppra] 500 mg tablet 500 mg PO BID Qty: 60 RF: 4 zonisamide [Zonegran] 100 mg capsule 400 mg PO QDAY Qty: 120 RF: 5 oxycodone-acetaminophen [Percocet] 5-325 mg tablet 1 tab PO TID PRN (Reason: pain) 30 Days Qty: 90 RF: 0 Discontinued azithromycin [Zithromax] 250 mg tablet See Rx Instructions PO .COMPLEX Qty: 6 RF: 0 Discharge Orders: Discharge Order (Routine); Ordered 08/08/19 Ordered By: Jeremy Rosa Referrals: Wound Care [Provider Group] - 1 week (Abdominal and L armpit wounds. Needs an appointment and time called to Mariela Sunday for one week from today.) [facility] [Outside] [facility] [Outside] Addison Barkley FNP-C [Primary Care Provider] - 4-7 days Discharge Diet: Diabetic Discharge Activity: Increase activity as tolerated Activity Restrictions/Additional Instructions: Please clean abdominal wound daily with soap and water, apply Santyl, keep covered with Hydrofera Blue if possible, otherwise ABD, keep clean. Please see wound care clinic with regards to follow-up on progress on healing, and seek medical attention if there is any worsening of swelling, any pus draining from the wound, any high fevers, severe pain, or other abnormality. Please discuss with your primary care doctor both regarding the wound and redness on your belly, as well as the red papule in your left armpit. Please discuss with your doctor regarding MRSA infection. Please discuss also regarding benefits and risks of MRSA eradication therapy. Please avoid any steroids or immunosuppressive medications. Please work with your primary care doctor to improve control of glucose as your diabetes is not optimally controlled. Discharge Attestations Time Spent in Discharge Care*: greater than 30 min Quality Metrics Clinical Quality Measures During this hospital stay, did patient experience: None Coding Level of Care Code Acute Cable Respooler for [facility] Diagnoses Cellulitis L03.90
== END 2019-08-08 15:12 | disposition home health service (06) | DRG 602 ==
LOC: ER 15:57 → MEDSURG 18:23
PROVIDERS: Family Medicine; Admitting Provider Internal Medicine; PCP Nurse Practitioner; Visit Provider Internal Medicine
DX: L03.311 Cellulitis of abdominal wall (principal); A41.9 Sepsis, unspecified organism; I27.82 Chronic pulmonary embolism; F31.70 Bipolar disorder, currently in remission, most recent episode unspecified; F43.10 Post-traumatic stress disorder, unspecified; E11.9 Type 2 diabetes mellitus without complications; J44.9 Chronic obstructive pulmonary disease, unspecified; Z79.4 Long term (current) use of insulin; Z79.01 Long term (current) use of anticoagulants; Z86.711 Personal history of pulmonary embolism; G47.33 Obstructive sleep apnea (adult) (pediatric); E03.9 Hypothyroidism, unspecified; G89.29 Other chronic pain; G40.909 Epilepsy, unspecified, not intractable, without status epilepticus; K21.9 Gastro-esophageal reflux disease without esophagitis; Z79.891 Long term (current) use of opiate analgesic; F41.1 Generalized anxiety disorder; E55.9 Vitamin D deficiency, unspecified; E78.2 Mixed hyperlipidemia
CPT/HCPCS: 12345; 36415; 36416; 74177; 76882; 80053; 80202; 82962; 82977; 83036; 83605; 85025; 86140; 87040; 87070; 87077; 87186; 87205; 94640; 96372; 96375; 99283; J1815; J1956; J2270; J2765; J3370; J3535; J7050; Q9967

== ENCOUNTER → 2019-08-11 08:24 | Outpatient (BNVA) | payer MEDICAID, SELFPAY | PROVIDERS: PCP Nurse Practitioner; Visit Provider Counselor Professional | DX: F43.12 Post-traumatic stress disorder, chronic (principal); F41.1 Generalized anxiety disorder; F31.70 Bipolar disorder, currently in remission, most recent episode unspecified | CPT/HCPCS: 90832 ==

== ENCOUNTER → 2019-08-14 13:10 | Outpatient (BNVA) | payer MEDICAID, SELFPAY | PROVIDERS: Family Provider Nurse Practitioner; PCP Nurse Practitioner; Visit Provider Anesthesiology | DX: G89.29 Other chronic pain (principal); M54.42 Lumbago with sciatica, left side; M54.41 Lumbago with sciatica, right side; Z79.891 Long term (current) use of opiate analgesic | CPT/HCPCS: 99213; 99214 ==

== ENCOUNTER 2019-08-14 14:06 | Outpatient (CLI) | payer MEDICAID, SELFPAY | END 2019-08-14 14:07 | disposition home or self-care (01) | LOC: WOUND 14:07 | PROVIDERS: Family Provider Nurse Practitioner; PCP Nurse Practitioner; Visit Provider Surgery | DX: S31.103A Unspecified open wound of abdominal wall, right lower quadrant without penetration into peritoneal cavity, initial encounter (principal); X58.XXXA Exposure to other specified factors, initial encounter | CPT/HCPCS: 11042; G0463 ==

== ENCOUNTER → 2019-08-18 13:35 | Outpatient (BNVA) | payer MEDICAID, SELFPAY | PROVIDERS: PCP Nurse Practitioner; Visit Provider Nurse Practitioner | DX: L03.90 Cellulitis, unspecified (principal); E11.65 Type 2 diabetes mellitus with hyperglycemia; J45.909 Unspecified asthma, uncomplicated | CPT/HCPCS: 85025 ==

== ENCOUNTER → 2019-08-21 08:21 | Outpatient (BNVA) | payer MEDICAID, SELFPAY | PROVIDERS: PCP Nurse Practitioner; Visit Provider Counselor Professional | DX: F43.12 Post-traumatic stress disorder, chronic (principal); F31.70 Bipolar disorder, currently in remission, most recent episode unspecified; F41.1 Generalized anxiety disorder | CPT/HCPCS: 90834 ==

== ENCOUNTER 2019-08-21 14:55 | Outpatient (CLI) | payer MEDICAID, SELFPAY | END 2019-08-21 14:56 | disposition home or self-care (01) | PROVIDERS: PCP Nurse Practitioner; Visit Provider Emergency Medicine | DX: L08.9 Local infection of the skin and subcutaneous tissue, unspecified (principal); L98.492 Non-pressure chronic ulcer of skin of other sites with fat layer exposed | CPT/HCPCS: 11042 ==

== ENCOUNTER 2019-08-28 13:23 | Outpatient (CLI) | payer MEDICAID, SELFPAY | END 2019-08-28 13:24 | disposition home or self-care (01) | LOC: WOUND 13:26 | PROVIDERS: PCP Nurse Practitioner; Visit Provider Nurse Practitioner Family | DX: E11.622 Type 2 diabetes mellitus with other skin ulcer (principal); L98.492 Non-pressure chronic ulcer of skin of other sites with fat layer exposed | CPT/HCPCS: 11042 ==

== ENCOUNTER → 2019-09-10 09:09 | Outpatient (BNVA) | payer MEDICAID, SELFPAY | PROVIDERS: PCP Nurse Practitioner; Visit Provider Nurse Practitioner | DX: F43.12 Post-traumatic stress disorder, chronic (principal); F41.1 Generalized anxiety disorder | CPT/HCPCS: 90832; 99214 ==

== ENCOUNTER → 2019-09-11 08:46 | Outpatient (BNVA) | payer MEDICAID, SELFPAY | PROVIDERS: PCP Nurse Practitioner; Visit Provider Counselor Professional | DX: F43.12 Post-traumatic stress disorder, chronic (principal); F41.1 Generalized anxiety disorder | CPT/HCPCS: 90834 ==

== ENCOUNTER → 2019-09-17 10:49 | Outpatient (BNVA) | payer MEDICAID, SELFPAY | PROVIDERS: PCP Nurse Practitioner; Visit Provider Nurse Practitioner | DX: J45.909 Unspecified asthma, uncomplicated (principal); E11.65 Type 2 diabetes mellitus with hyperglycemia; Z79.4 Long term (current) use of insulin; E03.8 Other specified hypothyroidism; E55.9 Vitamin D deficiency, unspecified; Z86.711 Personal history of pulmonary embolism; R19.7 Diarrhea, unspecified; K21.9 Gastro-esophageal reflux disease without esophagitis | CPT/HCPCS: 80053; 80061; 81000; 82306; 83036; 84443; 85025 ==

== ENCOUNTER 2019-09-18 10:26 | Outpatient (CLI) | payer MEDICAID, SELFPAY | END 2019-09-18 10:27 | disposition home or self-care (01) | LOC: WOUND 10:27 | PROVIDERS: PCP Nurse Practitioner; Visit Provider Nurse Practitioner Family | DX: E11.622 Type 2 diabetes mellitus with other skin ulcer (principal); L98.492 Non-pressure chronic ulcer of skin of other sites with fat layer exposed | CPT/HCPCS: G0463 ==

== ENCOUNTER → 2019-09-22 09:32 | Outpatient (BNVA) | payer MEDICAID, SELFPAY | PROVIDERS: PCP Nurse Practitioner; Visit Provider Counselor Professional | DX: F31.70 Bipolar disorder, currently in remission, most recent episode unspecified (principal); F41.1 Generalized anxiety disorder; F43.12 Post-traumatic stress disorder, chronic | CPT/HCPCS: 90834 ==

== ENCOUNTER 2019-09-25 09:20 | Outpatient (CLI) | payer MEDICAID, SELFPAY | END 2019-09-25 09:21 | disposition home or self-care (01) | LOC: WOUND 09:20 | PROVIDERS: PCP Nurse Practitioner; Visit Provider Emergency Medicine | DX: E11.622 Type 2 diabetes mellitus with other skin ulcer (principal); L98.492 Non-pressure chronic ulcer of skin of other sites with fat layer exposed | CPT/HCPCS: 11042 ==

== ENCOUNTER 2019-10-02 10:21 | Outpatient (CLI) | payer MEDICAID, SELFPAY | END 2019-10-02 10:22 | disposition home or self-care (01) | LOC: WOUND 10:21 | PROVIDERS: PCP Nurse Practitioner; Visit Provider Emergency Medicine | DX: L98.492 Non-pressure chronic ulcer of skin of other sites with fat layer exposed (principal) | CPT/HCPCS: 11042 ==

== ENCOUNTER → 2019-10-06 10:04 | Outpatient (BNVA) | payer MEDICAID, SELFPAY | PROVIDERS: PCP Nurse Practitioner; Visit Provider Counselor Professional | DX: F43.12 Post-traumatic stress disorder, chronic (principal); F31.70 Bipolar disorder, currently in remission, most recent episode unspecified; F41.1 Generalized anxiety disorder | CPT/HCPCS: 90832 ==

== ENCOUNTER 2019-10-09 17:11 | Emergency (ER) | payer MEDICAID, SELFPAY ==
--- NOTE | 2019-10-09 | CTR_ITS ---
PROCEDURE INFORMATION: Exam: CT Head Without Contrast Exam date and time: 10/09/2019 5:20 PM Age: 54 years old Clinical indication: Speech disturbance; Additional info: Possible CVA TECHNIQUE: Imaging protocol: Computed tomography of the head without contrast. Radiation optimization: All CT scans at this facility use at least one of these dose optimization techniques: automated exposure control; mA and/or kV adjustment per patient size (includes targeted exams where dose is matched to clinical indication); or iterative reconstruction. Other technique: STROKE PROTOCOL was implemented. COMPARISON: No relevant prior studies available. RADIATION DOSE METRICS: Total DLP (mGy-cm): 764.41 FINDINGS: Brain: Normal. No hemorrhage. Unremarkable white matter. No mass effect. Ventricles: Normal. No ventriculomegaly. Bones/joints: Unremarkable. No acute fracture. Sinuses: Visualized sinuses are unremarkable. No fluid levels. Mastoid air cells: Visualized mastoid air cells are well aerated. Soft tissues: Unremarkable. CT/CT head wo con* [id number] IMPRESSION: No acute intracranial abnormality. ASSESSMENT: ASPECTS ([place] Stroke Program Early CT Score) is 10. Radiation Dose CTDIVOL = (mGy): DLP = 764.41 (mGy-cm)
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
--- NOTE | 2019-10-09 17:23 | ECG_ITS ---
[facility] Test Date: 2019-10-09 Pat Name: Mariela Ceja Department: Room: Gender: Female Manager Product Design: : 1965 Requested By: Darrian Freitas Order Number: [id number] Dmitri MD: Mayito Loera M.D. Measurements Intervals [place] Rate: 81 P: 41 [place]: 167 QRS: -25 QRSD: 91 T: 41 QT: 347 QTc: 405 Interpretive Statements SINUS RHYTHM BORDERLINE LEFT AXIS DEVIATION [QRS AXIS < -20] Compared to ECG 05/14/2018 19:03:09 No significant changes Electronically Signed On 10-10-2019 21:12:53 CDT by Mayito Loera M.D. [email or web address]/NU/[id number] f
[2019-10-09 17:29] VITALS: BMI 37.9
[2019-10-09 17:49] VITALS: BP 122/81; PULSE 78; RESP 16; O2SAT 94
[2019-10-09 18:08] LABS: Basophils # 0.1 10^3/uL (0.0-0.1); Basophils % 0.5 %; Eosinophils # 0.2 10^3/uL (0.0-0.8); Eosinophils % 2.3 %; Hematocrit 47.5 % (37.0-47.0); Mean Corpuscular HGB Conc 31.6 g/dL (30.0-36.0); Mean Corpuscular Hemoglobin 27.8 pg (28.0-34.0); Mean Platelet Volume 10.9 fL (7.4-10.4); Monocytes # 0.6 10^3/uL (0.2-0.9); Monocytes % 5.7 %; Neutrophils # 6.33 10^3/uL (1.8-7.7); Neutrophils % 62.1 %; Nucleated Red Blood Cells % 0 %; Platelet Count 254 10^3/cmm (130-400); Red Cell Distribution Width 13.3 % (12.1-15.1); White Blood Count 10.2 10^3/uL (4.0-10.0)
[2019-10-09 18:09] LABS: Add Urine Microscopic? NO
--- NOTE | 2019-10-09 18:15 | PC.NURSE ---
Read and agree with assessment
[2019-10-09 18:24] LABS: Partial Thromboplastin Time 28.7 SECONDS (23.9-36.7)
[2019-10-09 18:25] VITALS: BP 104/74; PULSE 79; RESP 18; O2SAT 94
[2019-10-09 18:29] LABS: Alanine Aminotransferase 24 U/L (0-33); Albumin Level 3.8 g/dL (3.5-5.2); Alkaline Phosphatase 168 IU/L (35-105); Anion Gap 15.3 (5-19); Aspartate Amino Transferase 14 U/L (0-32); Blood Urea Nitrogen 16 mg/dL (6-20); Calcium 9.2 mg/dL (8.5-10.5); Carbon Dioxide 22 mmol/L (22-29); Chloride 105 mmol/L (98-107); Creatine Phosphokinase 47 U/L (26-192); Globulin 3.3 g/dL (1.3-4.6); Glucose 337 mg/dL (65-115); Osmolality Calculated 296 mOsm/kg (285-295); Potassium 4.3 mmol/L (3.5-5.1); Sodium 138 mmol/L (136-145); Total Bilirubin 0.2 mg/dL (0.15-1.2); Total Protein 7.1 g/dL (6.6-8.7)
[2019-10-09 18:38] LABS: Amphetamines Screen Urine Negative (Negative); Barbiturates Screen Urine Negative (Negative); Benzodiazepines Screen Urine Negative (Negative); Cocaine Screen Urine Negative (Negative); Opiate Screen Urine Positive (Negative); PCP Screen Urine Negative (Negative); THC Screen Urine Negative (Negative)
[2019-10-09 18:40] LABS: Bilirubin Urine Neg (NEGATIVE); Blood Urine Neg (Negative); Glucose Urine UA 4+ (Normal); Ketones Urine Negative (Negative); Leukocyte Esterase Urine Negative (Negative); Nitrate Urine Negative (Negative); Protein Urine Neg (Negative); Specific Gravity, Urine 1.015 (1.005-1.030); Urine Appearance Clear (CLEAR); Urine Color Yellow (Yellow); Urobilinogen Urine Neg (Negative); pH Urine 5 (5-7)
[2019-10-09] MEDS: HYDROcodone-acetaminophen 5-325 mg Tablet 1 TAB PO (19:32)
[2019-10-09 19:40] VITALS: BP 122/87; PULSE 87; RESP 16; O2SAT 98
== END 2019-10-09 19:41 | disposition home or self-care (01) ==
PROVIDERS: Family Medicine; Emergency Provider Emergency Medicine; PCP Nurse Practitioner
DX: G89.29 Other chronic pain (principal); M54.5 Low back pain; R41.82 Altered mental status, unspecified; Z79.4 Long term (current) use of insulin; Z79.01 Long term (current) use of anticoagulants; E78.2 Mixed hyperlipidemia; E11.9 Type 2 diabetes mellitus without complications
CPT/HCPCS: 12345; 36415; 70450; 80053; 80306; 81003; 82550; 85025; 85610; 85730; 93005; 99283; 99284

== ENCOUNTER 2019-10-16 10:55 | Outpatient (CLI) | payer MEDICAID, SELFPAY | END 2019-10-16 10:56 | disposition home or self-care (01) | LOC: WOUND 10:55 | PROVIDERS: PCP Nurse Practitioner; Visit Provider Emergency Medicine | DX: E11.622 Type 2 diabetes mellitus with other skin ulcer (principal); L98.492 Non-pressure chronic ulcer of skin of other sites with fat layer exposed; G89.29 Other chronic pain; M54.42 Lumbago with sciatica, left side; M54.41 Lumbago with sciatica, right side; M47.819 Spondylosis without myelopathy or radiculopathy, site unspecified; Z79.891 Long term (current) use of opiate analgesic | CPT/HCPCS: 11042; 99213; 99214 ==

== ENCOUNTER → 2019-10-20 09:05 | Outpatient (BNVA) | payer MEDICAID, SELFPAY | PROVIDERS: PCP Nurse Practitioner; Visit Provider Counselor Professional | DX: F43.12 Post-traumatic stress disorder, chronic (principal); F41.1 Generalized anxiety disorder; F31.70 Bipolar disorder, currently in remission, most recent episode unspecified | CPT/HCPCS: 90832 ==

== ENCOUNTER 2019-10-23 13:08 | Outpatient (CLI) | payer MEDICAID, SELFPAY | END 2019-10-23 13:09 | disposition home or self-care (01) | LOC: WOUND 13:08 | PROVIDERS: PCP Nurse Practitioner; Visit Provider Nurse Practitioner Family | DX: Z09 Encounter for follow-up examination after completed treatment for conditions other than malignant neoplasm (principal) | CPT/HCPCS: 99212 ==

== ENCOUNTER → 2019-11-03 09:13 | Outpatient (BNVA) | payer MEDICAID, SELFPAY | PROVIDERS: PCP Nurse Practitioner; Visit Provider Counselor Professional | DX: F43.12 Post-traumatic stress disorder, chronic (principal); F41.1 Generalized anxiety disorder; F31.70 Bipolar disorder, currently in remission, most recent episode unspecified | CPT/HCPCS: 90832 ==

== ENCOUNTER → 2019-11-04 10:41 | Outpatient (BNVA) | payer MEDICAID, SELFPAY | PROVIDERS: PCP Nurse Practitioner; Visit Provider Specialist | DX: G40.309 Generalized idiopathic epilepsy and epileptic syndromes, not intractable, without status epilepticus (principal); F41.1 Generalized anxiety disorder; F43.12 Post-traumatic stress disorder, chronic | CPT/HCPCS: 99213 ==

== ENCOUNTER → 2019-12-08 08:28 | Outpatient (BNVA) | payer MEDICAID, SELFPAY | PROVIDERS: PCP Nurse Practitioner; Visit Provider Nurse Practitioner | DX: F31.70 Bipolar disorder, currently in remission, most recent episode unspecified (principal); F41.1 Generalized anxiety disorder; F43.12 Post-traumatic stress disorder, chronic | CPT/HCPCS: 99214 ==

== ENCOUNTER → 2019-12-16 11:04 | Outpatient (BNVA) | payer MEDICAID, SELFPAY | PROVIDERS: PCP Nurse Practitioner; Visit Provider Nurse Practitioner | DX: E11.65 Type 2 diabetes mellitus with hyperglycemia (principal); J45.909 Unspecified asthma, uncomplicated; E03.8 Other specified hypothyroidism; E55.9 Vitamin D deficiency, unspecified; K21.9 Gastro-esophageal reflux disease without esophagitis; R19.7 Diarrhea, unspecified; R11.0 Nausea; Z79.4 Long term (current) use of insulin; Z86.711 Personal history of pulmonary embolism | CPT/HCPCS: 80053; 80061; 81000; 83036; 84443; 85025 ==

== ENCOUNTER → 2019-12-23 08:55 | Outpatient (BNVA) | payer MEDICAID, SELFPAY | PROVIDERS: PCP Nurse Practitioner; Visit Provider Anesthesiology | DX: G89.29 Other chronic pain (principal); M54.42 Lumbago with sciatica, left side; M54.41 Lumbago with sciatica, right side; M47.819 Spondylosis without myelopathy or radiculopathy, site unspecified; Z79.891 Long term (current) use of opiate analgesic | CPT/HCPCS: 99212; 99214 ==

== ENCOUNTER → 2020-01-19 09:06 | Outpatient (BNVA) | payer MEDICAID, SELFPAY | PROVIDERS: PCP Nurse Practitioner; Visit Provider Nurse Practitioner | DX: F41.1 Generalized anxiety disorder (principal); F43.12 Post-traumatic stress disorder, chronic; E03.8 Other specified hypothyroidism; F31.70 Bipolar disorder, currently in remission, most recent episode unspecified | CPT/HCPCS: 99213 ==

== ENCOUNTER → 2020-01-22 08:58 | Outpatient (BNVA) | payer MEDICAID, SELFPAY | PROVIDERS: PCP Nurse Practitioner; Visit Provider Counselor Professional | DX: F41.1 Generalized anxiety disorder (principal); F43.12 Post-traumatic stress disorder, chronic; F31.70 Bipolar disorder, currently in remission, most recent episode unspecified | CPT/HCPCS: 90832 ==

== ENCOUNTER → 2020-02-12 08:53 | Outpatient (BNVA) | payer MEDICAID, SELFPAY | PROVIDERS: PCP Nurse Practitioner; Visit Provider Counselor Professional | DX: F41.1 Generalized anxiety disorder (principal); F43.12 Post-traumatic stress disorder, chronic | CPT/HCPCS: 90832 ==

== ENCOUNTER → 2020-02-27 09:03 | Outpatient (BNVA) | payer MEDICAID, SELFPAY | PROVIDERS: PCP Nurse Practitioner; Visit Provider Nurse Practitioner | DX: G89.29 Other chronic pain (principal); M54.5 Low back pain; M25.552 Pain in left hip; Z79.891 Long term (current) use of opiate analgesic | CPT/HCPCS: 99214 ==

== ENCOUNTER 2020-02-27 13:14 | Outpatient (CLI) | payer MEDICAID, SELFPAY ==
--- NOTE | 2020-02-27 13:55 | XR_ITS ---
WS: [id number] LUMBAR SPINE TECHNIQUE: 3 views of the lumbar spine CLINICAL INFORMATION: M54.5 - Low back pain COMPARISON: 2017 FINDINGS: Five azo-hsm-nqhvftn lumbar vertebral bodies. Mild lumbar curve convex left. Osteopenia. Cholecystect oren clips. Anterolisthesis L4 on L5. Disc space narrowing worse at L4-5 progressed since 2017. Moder ate facet arthropathy L4-L5 and L5-S1.Slight compression superior endplate L5 appears new from 2017 b ut is stable since August 05, 2019 CT abdomen pelvis XR/XR lumbar spine 2-3V* [id number] IMPRESSION: 1. Mild lumbar curve convex left. Osteopenia. 2. Grade 1 anterolisthesis L4 on L5 progressed since 2017. 3. Slight compression superior endplate L5 appears new from previous 2017 but is stable since August 05, 2019 CT abdomen pelvis 4. No other significant changes.
--- NOTE | 2020-02-27 13:55 | XR_ITS ---
WS: [id number] HIP WITH PELVIS LEFT TECHNIQUE: 3 views of the left hip with pelvis CLINICAL INFORMATION: M25.552 - Pain in left hip COMPARISON: April 27, 2016 FINDINGS: Prior postoperative changes plate and screw fixation involving the left acetabulum extending into the ilium and pubis. No evidence of hardware loosening. Single free fixation screw medially unchanged. Progressed advanced osteoarthritis left hip with loss of the acetabular fossa. Progressed versus invo lving the left femoral neck with progressed ankylosis. Progressed hypertrophic changes along the supe rior acetabulum and femoral neck. XR/XR hip LT 2-3V wo/w pel* [id number] IMPRESSION: 1. Progressed sclerosis involving the left femoral head and neck compared to 2 017. 2. Postoperative hardware is unchanged
== END 2020-02-27 13:15 | disposition home or self-care (01) ==
LOC: RADWPI 13:17
PROVIDERS: PCP Nurse Practitioner; Visit Provider Nurse Practitioner
DX: M54.5 Low back pain (principal); M25.552 Pain in left hip; M85.88 Other specified disorders of bone density and structure, other site
CPT/HCPCS: 72100; 73502

== ENCOUNTER → 2020-03-11 09:28 | Outpatient (BNVA) | payer MEDICAID, SELFPAY ==
[2020-03-09 09:44] VITALS: BP 105/77; BMI 37.1
== END ==
PROVIDERS: PCP Nurse Practitioner; Visit Provider Counselor Professional
DX: F41.1 Generalized anxiety disorder (principal); F31.70 Bipolar disorder, currently in remission, most recent episode unspecified; F43.12 Post-traumatic stress disorder, chronic
CPT/HCPCS: 90832

== ENCOUNTER 2020-03-15 12:39 | Outpatient (CLI) | payer MEDICAID, SELFPAY ==
[2020-03-15 10:48] VITALS: BP 105/77; BMI 37.1
--- NOTE | 2020-03-15 12:46 | XR_ITS ---
WS: [id number] LATERAL LUMBAR SPINE: 3 view. Lateral radiographs are performed in upright neutral, flexion and extension to the patient's toleranc e. HISTORY: M54.5 - Low back pain COMPARISON: 02/27/2020 5 mm anterolisthesis of L4 does not change significantly with flexion or extension. There is mild rot oscoliosis of the lumbar vertebral bodies. Mild disc space narrowing at L4-5 and L5-S1. Osteopenia. XR/XR lumbar spine f/e only [id number] IMPRESSION: Grade 1 anterolisthesis of L4 with no instability.
--- NOTE | 2020-03-15 14:39 | XRR_ITS ---
PROCEDURE INFORMATION: Exam: XR Left Hip with Pelvis when Performed Exam date and time: 03/15/2020 2:39 PM Age: 54 years old Clinical indication: Pain and injury or trauma; Fall; Blunt trauma (contusions or hematomas); Hip pain; Left hip; Injury date: 02/25/19; Prior surgery; Additional info: M25.552 - pain in left hip TECHNIQUE: Imaging protocol: XR Left hip with pelvis when performed. Views: 2 or 3 views. COMPARISON: CR XR hip LT 2-3V wo/w pel* [id number] 02/27/2020 2:00 PM FINDINGS: Bones/joints: Old fractures of the left pelvis unchanged from prior. Surgical plate and screw fixation of left acetabulum unchanged in appearance from prior. End-stage osteoarthritis of the left hip joint redemonstrated. Diffuse osseous demineralization. Mild osteoarthritis of the right hip joint, unchanged. Partial visualization of right femur intramedullary jamey. Soft tissues: Unremarkable. XR/XR hip LT 2-3V wo/w pel* [id number] IMPRESSION: No changes in the left hip from recent prior on 02/27/2020.
== END 2020-03-15 12:40 | disposition home or self-care (01) ==
LOC: RADWPI 12:43
PROVIDERS: PCP Nurse Practitioner; Visit Provider Nurse Practitioner
DX: M25.552 Pain in left hip (principal); M54.5 Low back pain
CPT/HCPCS: 72120; 73502; 80053; 80061; 81000; 82043; 83036; 83721; 84443; 85379

== ENCOUNTER → 2020-04-01 08:18 | Outpatient (BNVA) | payer MEDICAID, SELFPAY ==
[2020-03-15 10:48] VITALS: BP 105/77; BMI 37.1
== END ==
PROVIDERS: PCP Nurse Practitioner; Visit Provider Counselor Professional
DX: F43.12 Post-traumatic stress disorder, chronic (principal); F41.1 Generalized anxiety disorder; F31.70 Bipolar disorder, currently in remission, most recent episode unspecified
CPT/HCPCS: 90832

== ENCOUNTER 2020-04-01 08:45 | Emergency (ER) | payer MEDICAID, SELFPAY ==
[2020-04-01 08:54] VITALS: BP 142/93; PULSE 103; RESP 18; TEMP 36.8; O2SAT 95; BMI 37.1
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
--- NOTE | 2020-04-01 08:59 | XR_ITS ---
WS: [id number] Exam: XR forearm RT 2V [id number] Date/Time of Exam: 04/01/2020 9:00 AM Reason For Exam: injury Findings: There are no fractures, soft tissue swelling, or calcifications of the forearm. There is no irregula rity of the bony architecture. The bony elements lie in good position. XR/XR forearm RT 2V [id number] IMPRESSION: Negative right forearm.
[2020-04-01 09:03] VITALS: PULSE 87; RESP 18; O2SAT 96
[2020-04-01 10:04] VITALS: BP 130/86; PULSE 83; RESP 18; O2SAT 94
== END 2020-04-01 10:04 | disposition home or self-care (01) ==
PROVIDERS: Emergency Provider Nurse Practitioner Family; PCP Nurse Practitioner
DX: S50.11XA Contusion of right forearm, initial encounter (principal); Z79.01 Long term (current) use of anticoagulants; Z79.4 Long term (current) use of insulin; E78.2 Mixed hyperlipidemia; E11.9 Type 2 diabetes mellitus without complications; Y04.8XXA Assault by other bodily force, initial encounter
CPT/HCPCS: 73090; 90832; 99282

== ENCOUNTER → 2020-04-05 14:59 | Outpatient (BNVA) | payer MEDICAID, SELFPAY ==
[2020-03-15 10:48] VITALS: BP 105/77; BMI 37.1
== END ==
PROVIDERS: PCP Nurse Practitioner; Visit Provider Nurse Practitioner
DX: E11.65 Type 2 diabetes mellitus with hyperglycemia (principal); Z79.4 Long term (current) use of insulin
CPT/HCPCS: 80048

== ENCOUNTER → 2020-04-12 07:53 | Outpatient (BNVA) | payer MEDICAID, SELFPAY ==
[2020-04-08 15:29] VITALS: BP 105/77; BMI 37.1
== END ==
PROVIDERS: PCP Nurse Practitioner; Visit Provider Nurse Practitioner
DX: F31.70 Bipolar disorder, currently in remission, most recent episode unspecified (principal); F41.1 Generalized anxiety disorder; F43.12 Post-traumatic stress disorder, chronic
CPT/HCPCS: 99214

== ENCOUNTER → 2020-04-20 08:38 | Outpatient (BNVA) | payer MEDICAID, SELFPAY ==
[2020-04-08 15:29] VITALS: BP 105/77; BMI 37.1
== END ==
PROVIDERS: PCP Nurse Practitioner; Visit Provider Counselor Professional
DX: G89.29 Other chronic pain (principal); M54.5 Low back pain; M25.552 Pain in left hip; Z79.891 Long term (current) use of opiate analgesic
CPT/HCPCS: 90832; 99212; 99213

== ENCOUNTER → 2020-05-11 08:36 | Outpatient (BNVA) | payer MEDICAID, SELFPAY ==
[2020-04-08 15:29] VITALS: BP 105/77; BMI 37.1
== END ==
PROVIDERS: PCP Nurse Practitioner; Visit Provider Counselor Professional
DX: F41.1 Generalized anxiety disorder (principal); F43.12 Post-traumatic stress disorder, chronic
CPT/HCPCS: 90832

== ENCOUNTER → 2020-06-01 08:33 | Outpatient (BNVA) | payer MEDICAID, SELFPAY ==
[2020-05-28 11:47] VITALS: BP 105/77; BMI 37.1
== END ==
PROVIDERS: PCP Nurse Practitioner; Visit Provider Counselor Professional
DX: F41.1 Generalized anxiety disorder (principal); F43.12 Post-traumatic stress disorder, chronic
CPT/HCPCS: 90832

== ENCOUNTER 2020-06-09 12:02 | Inpatient (IN) | payer MEDICAID, SELFPAY ==
[2020-06-08 12:14] VITALS: BP 105/77; BMI 37.1
[2020-06-09] VITALS (11 sets, daily range): BP systolic 105–126; BP diastolic 64–79; PULSE 77–93; RESP 16–18; TEMP 36.5–37; O2SAT 96–99
--- NOTE | 2020-06-09 12:40 | ECG_ITS ---
[facility] Test Date: 2020-06-09 Pat Name: Mariela Ceja Department: Room: Gender: Female Shrinker: : 1965 Requested By: Manuel Gomez Order Number: [id number] Dmitri MD: Carlo Kim M.D. Measurements Intervals [place] Rate: 86 P: 32 SC: 133 QRS: -50 QRSD: 91 T: 6 QT: 395 QTc: 475 Interpretive Statements SINUS RHYTHM LOW QRS VOLTAGE [QRS DEFLECTION < 0.5/1.0 mV IN LIMB/CHEST LEADS] INFERIOR MYOCARDIAL INFARCTION , PROBABLY OLD [40+ ms Q WAVE AND/OR ST/T ABNORMALITY IN II/aVF] ANTEROSEPTAL MYOCARDIAL INFARCTION , PROBABLY OLD [40+ ms Q WAVE IN V1-V4] Compared to ECG 10/09/2019 17:30:30 Low QRS voltage now present Myocardial infarct finding now present Electronically Signed On 06-10-2020 9:31:13 CDT by Carlo Kim M.D. [id number]
--- NOTE | 2020-06-09 12:45 | XR_ITS ---
WS: [id number] Left foot, 2 views, 06/09/2020 Clinical Data: trauma Comparison: None. Findings: No foot fractures or dislocations are seen. No bone destruction or erosion is noted. The joint spaces and soft tissues of the left foot are normal. There is a large plantar spur. There is a fracture dislocation of the left ankle with posterior dislocation of the talus from the ti isma. XR/XR foot LT 2V [id number] Impression: 1. Negative for left foot fracture. 2. Fracture dislocation of distal left tibia with posterior displacement of the talus from the tibia.
--- NOTE | 2020-06-09 12:45 | XR_ITS ---
WS: [id number] Left ankle, AP and lateral views, 06/09/2020 Clinical Data: trauma Comparison: None. Findings: There is a fracture of the distal left tibia with posterior dislocation of the talus from the tibia a nd fibula. There may be an oblique fracture of the distal left fibula. Soft tissue swelling over the medial and lateral malleolus is noted. There is a large plantar spur. XR/XR ankle LT 2V [id number] Impression: Fracture dislocation of left ankle.
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
[2020-06-09 13:31] LABS: Add Urine Microscopic? YES; Bilirubin Urine Neg (Negative); Blood Urine 2+ (Negative); Glucose Urine UA 4+ (Normal); Ketones Urine 1+ (Negative); Leukocyte Esterase Urine Trace (Negative); Nitrate Urine Negative (Negative); Protein Urine Neg (Negative); Specific Gravity, Urine 1.005 (1.005-1.030); Urine Appearance Hazy (CLEAR); Urine Color Yellow (Yellow); Urobilinogen Urine 1 mg/dL (Negative); pH Urine 7 (5-7)
[2020-06-09 14:30] LABS: Add Urine Culture? No; Bacteria Urine 4+ /hpf; RBC Urine 0-4 /hpf (0-2); Squamous Epithelial Cell Urine 40-55 /hpf (0-5); WBC Urine 80-100 /hpf (0-5)
[2020-06-09] MEDS: HYDROmorphone 1 mg/mL INJ 1 mL IVP ×2 (14:54→15:37)
[2020-06-09 15:14] LABS: Alanine Aminotransferase 9 U/L (0-33); Albumin Level 3.6 g/dL (3.5-5.2); Alkaline Phosphatase 249 IU/L (35-105); Anion Gap 18.7 (5-19); Aspartate Amino Transferase 12 U/L (0-32); Basophils # 0.1 10^3/uL (0.0-0.1); Basophils % 0.3 %; Blood Urea Nitrogen 5 mg/dL (6-20); Carbon Dioxide 30 mmol/L (22-29); Chloride 85 mmol/L (98-107); Eosinophils # 0.1 10^3/uL (0.0-0.8); Eosinophils % 0.4 %; Globulin 4.2 g/dL (1.3-4.6); Glomerular Filtration Rate 87.5 mL/min (90-130); Glucose 370 mg/dL (65-115); Hemoglobin 14.7 g/dL (11.5-15.3); Lymphocytes # 3.3 10^3/uL (0.8-4.8); Lymphocytes % 21.7 %; Mean Corpuscular HGB Conc 32.7 g/dL (30.0-36.0); Mean Corpuscular Hemoglobin 26.2 pg (28.0-34.0); Mean Corpuscular Volume 80.2 fL (81-99); Mean Platelet Volume 9.8 fL (7.4-10.4); Monocytes # 0.9 10^3/uL (0.2-0.9); Monocytes % 6.2 %; Neutrophils % 70.1 %; Nucleated Red Blood Cells % 0 %; Osmolality Calculated 284 mOsm/kg (285-295); Platelet Count 721 10^3/cmm (130-400); Red Blood Count 5.61 10^6/uL (4.1-5.3); Red Cell Distribution Width 14.1 % (12.1-15.1); Sodium 131 mmol/L (136-145); Total Bilirubin 0.6 mg/dL (0.15-1.2); Total Protein 7.8 g/dL (6.6-8.7); White Blood Count 15.3 10^3/uL (4.0-10.0)
[2020-06-09 15:16] LABS: Ketone (Acetest) Serum Negative (Negative)
[2020-06-09 15:28] LABS: Potassium 2.7 mmol/L (3.5-5.1)
[2020-06-09] MEDS: clindamycin 900 MG/50 ML PREMIX 100 MG IV (15:39)
[2020-06-09] MEDS: sodium chloride 0.9% 2,000 ML 2000 ML IV (15:39)
[2020-06-09] MEDS: potassium chloride ER 20 mEq Tablet 40 MEQ PO ×2 (15:44→19:48)
[2020-06-09] MEDS: propofol 10 mg/mL SDV 20 mL 75 MG IVP (16:20)
[2020-06-09] MEDS: aztreonam 2,000 MG in sodium chloride 0.9% (plus) 100 ML 200 MG IV (16:43)
--- NOTE | 2020-06-09 17:01 | XRR_ITS ---
PROCEDURE INFORMATION: Exam: XR Left Ankle Exam date and time: 06/09/2020 5:08 PM Age: 54 years old Clinical indication: Pain; Ankle; Left; Patient HX: Post reduction TECHNIQUE: Imaging protocol: XR Left ankle. Views: 1 or 2 views. COMPARISON: CR XR ankle LT 2V [id number] 06/09/2020 1:15:21 PM FINDINGS: Bones/joints: There is persistent anterior dislocation of the tibia relative to the talus. There are fracture fragments posterior to the tibia. Medial malleolar fracture is visible on the frontal view. Lateral malleolar fracture visible on the prior is not apparent on this exam. Soft tissues: Cast noted XR/XR ankle LT 2V [id number] IMPRESSION: 1. Persistent anterior dislocation of the tibia relative to the talus. Alignment is unchanged. 2. Ankle fractures as above.
--- NOTE | 2020-06-09 17:41 | PC.NURSE ---
pt report called to Adriana TSANG in SBAR format.
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
[2020-06-09] MEDS: HYDROcodone-acetaminophen 5-325 mg Tablet 1 TAB PO (19:48)
[2020-06-09] MEDS: vancomycin 1,500 MG/300 ML PIGGYBACK 200 MG IV (20:20)
[2020-06-09 20:31] LABS: Glucose Point of Care 370 mg/dL (70-110)
[2020-06-09] MEDS: budesonide 0.5 mg/2 mL Neb INHALATION (21:16)
[2020-06-09] MEDS: gabapentin 300 mg Capsule PO (21:26)
[2020-06-09] MEDS: methocarbamol 750 mg Tablet PO (21:27)
[2020-06-09] MEDS: prazosin 1 mg Capsule 2 MG PO (21:27)
[2020-06-09] MEDS: zolpidem 5 mg Tablet 10 MG PO (22:04)
[2020-06-09] MEDS: morphine ER (12 HR) 15 mg Tablet PO (22:04)
[2020-06-10] VITALS (17 sets, daily range): BP systolic 95–136; BP diastolic 58–90; PULSE 68–118; RESP 15–22; TEMP 36.4–37.5; O2SAT 95–98
--- NOTE | 2020-06-10 | SCC_ITS ---
Procedure Done: External fixation to left ankle Uni planer 35.2 seconds of fluoroscopic guidance, for a cumulative dose of 0.84 mGy, was provided to Dr. Mann by the radiology department. C-arm images of the LEFT ankle were saved for the patient's permanent record. [facility]
[2020-06-10] MEDS: HYDROcodone-acetaminophen 5-325 mg Tablet 1 TAB PO ×2 (00:54→17:49)
[2020-06-10] MEDS: aztreonam 2,000 MG in sodium chloride 0.9% (plus) 100 ML 200 MG IV (03:31)
[2020-06-10 05:50] LABS: Basophils # 0.1 10^3/uL (0.0-0.1); Basophils % 0.4 %; Eosinophils # 0.2 10^3/uL (0.0-0.8); Eosinophils % 1.6 %; Hematocrit 35.5 % (37.0-47.0); Hemoglobin 12.1 g/dL (11.5-15.3); Lymphocytes # 2.6 10^3/uL (0.8-4.8); Lymphocytes % 22.5 %; Mean Corpuscular HGB Conc 34.1 g/dL (30.0-36.0); Mean Corpuscular Volume 79.2 fL (81-99); Mean Platelet Volume 10.1 fL (7.4-10.4); Monocytes # 1.2 10^3/uL (0.2-0.9); Monocytes % 10.1 %; Neutrophils # 7.41 10^3/uL (1.8-7.7); Neutrophils % 64.6 %; Nucleated Red Blood Cells % 0 %; Platelet Count 484 10^3/cmm (130-400); Red Blood Count 4.48 10^6/uL (4.1-5.3); Red Cell Distribution Width 13.9 % (12.1-15.1); White Blood Count 11.5 10^3/uL (4.0-10.0)
[2020-06-10] MEDS: morphine ER (12 HR) 15 mg Tablet PO ×3 (05:55→22:36)
[2020-06-10 06:09] LABS: Alanine Aminotransferase 7 U/L (0-33); Albumin Level 2.8 g/dL (3.5-5.2); Alkaline Phosphatase 186 IU/L (35-105); Blood Urea Nitrogen 7 mg/dL (6-20); Calcium 8.1 mg/dL (8.5-10.5); Carbon Dioxide 27 mmol/L (22-29); Chloride 95 mmol/L (98-107); Globulin 2.4 g/dL (1.3-4.6); Glomerular Filtration Rate 129.1 mL/min (90-130); Glucose 357 mg/dL (65-115); Osmolality Calculated 290 mOsm/kg (285-295); Sodium 134 mmol/L (136-145); Total Bilirubin 0.3 mg/dL (0.15-1.2); Total Protein 5.2 g/dL (6.6-8.7)
[2020-06-10 06:17] LABS: Anion Gap 15.4 (5-19); Aspartate Amino Transferase 14 U/L (0-32); Potassium 3.4 mmol/L (3.5-5.1)
[2020-06-10 06:31] LABS: Glucose Point of Care 345 mg/dL (70-110)
--- NOTE | 2020-06-10 07:00 | CT_ITS ---
WS: [id number] CT FACIAL BONES TECHNIQUE: Contrast-enhanced facial bones with coronal and sagittal reformatted images. CLINICAL INFORMATION: left temporal abscess/soft tissue details COMPARISON: None. DLP: 2415.[address] scans at [facility] use at least one of these dose optimization techniques: automat ed exposure control; mA and/or kV adjustment per patient size (includes targeted exams where dose is matched to clinical indication); or iterative reconstruction. FINDINGS: Diffuse soft tissue edema with low-attenuation collection overlying the left frontotemporal calvarium . This measures approximately 8.1 x 1.8 x 6.1 CM. A few small locules of air within the collection. T his extends to the lateral aspect of the orbit at the lacrimal gland. Small amount of surrounding sof t tissue induration. Findings are suspicious for abscess or infected hematoma. Associated peripheral enhancement. No post septal orbital extension. Mastoid air cells and paranasal sinuses are well aerated. Partially visualized intracranial contents are normal. Prominent left greater than right cervical lymph nodes likely reactive. A few prominent periparotid lymph nodes. CT/CT facial bones w con [id number] IMPRESSION: 1. Low-attenuation peripheral enhancing collection overlying the left frontal and temporal calvarium. A few small locules of air. Findings are suspicious for abscess or infected hematoma. Small amount of surrounding induration. 2. Reactive left parotid and left greater than right cervical chain lymph node s. 3. Paranasal sinuses are well aerated. 4. Mastoid air cells are well aerated. 5. No visualized calvarial fractures.
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
[2020-06-10] MEDS: vancomycin 1,500 MG/300 ML PIGGYBACK 200 MG IV ×2 (08:59→20:40)
[2020-06-10] MEDS: levETIRAcetam 500 mg Tablet PO ×2 (09:00→17:50)
[2020-06-10] MEDS: gabapentin 300 mg Capsule PO ×3 (09:00→20:41)
--- NOTE | 2020-06-10 09:00 | PC.NURSE ---
Patient has removed the covered dressing that was over the draining Hematoma she has on the left side of her head. Asked patient what happened to the dressing and patient states, I took it off. I don't want it on there. Patient is noted to be picking at the Hematoma. Updated patient that she should not be touching this area as it is open and she could causes it to be infected. Patient states, I have been messing with it since it happened and it is fine. Reminded patient that she should not touch this area.
[2020-06-10] MEDS: atorvastatin 40 mg Tablet PO (09:01)
[2020-06-10] MEDS: zonisamide 100 MG Capsule 200 MG PO ×2 (09:05→17:49)
[2020-06-10] MEDS: famotidine 20 mg Tablet PO ×2 (09:05→17:50)
[2020-06-10] MEDS: duloxetine 60 mg Capsule 120 MG PO (09:05)
[2020-06-10] MEDS: iohexol 300 mg/mL 100 mL Btl IV (09:52)
[2020-06-10 10:57] LABS: Glucose Point of Care 176 mg/dL (70-110)
--- NOTE | 2020-06-10 12:35 | PC.CHAP ---
Pastoral Care Encounter/Spiritual Assessment Type of Contact [] Declined manager general visit [] Patient/Family/Request visit [] Outpatient visit [] Follow-up visit [] Physician referral [] Code/Alert [] Routine visit [] Staff referral [] Actively dying [] Patient sleeping [] Family support [] [] Out of room [] Palliative care [] [] Receiving care in room [] Pre-surgical visit [] Trauma [] Long length of stay [] ICU visit [x] Other: unble to communicate Relational/Emotional Strength [] Patient feels connected with others/family/visitors/staff [] Distress [] Loneliness/isolation [] Abandonment Spirituality of Patient [] Person of Amanda [] Attends Catholic of their Amanda [] Believes in Prayer [] Reads Bible or Jainism materials [] There are Spiritual issues to be addressed Mechanic Assistant Interventions [] Prayer [] Active listening [] Non-anxious presence [] Spiritual/emotional support [] Crisis/trauma care [] Spiritual counseling [] Bereavement support [] Provided bereavement packet [] Provided Bible/devotional materials [] Provided toy/stuffed animal, coloring book to patient or family member [] Provided Communion [] Anointing/[place] [] Salvation [] Completed spiritual assessment [] Other: Impact on Illness or Injury [] Angry [] Fearful [] Anxious [] Often cries [] Exhaustion [] Unable to work [] Unable to attend episcopal [] Unable to walk/stand [] Unable to read [] Unable to drive [] Unable to eat/drink [] Unable to sleep [] Unable to be with family [] Patient intubated [] Other: Summary unble to communicate Time spent with patient 5 mins
--- NOTE | 2020-06-10 14:21 | PC.NURSE ---
It was discovered at this time that patient was given ice chip by Physical Therapy. Asked patient why she was eating the ice chips when she is nothing by mouth for surgery. Patient states, Because my mouth was dry. Patient states she does not remember what time and can not tell me how much as has had. Ice chips removed and patient again reminded that she is nothing by mouth and to not eat or drink anything else.
--- NOTE | 2020-06-10 15:00 | PC.NURSE ---
Patient to surgery at this time.
[2020-06-10] MEDS: sodium chloride 0.9% 1,000 ML 30 ML IV (15:26)
--- NOTE | 2020-06-10 15:32 | W.PM.OPSUD ---
Surgery/Procedure H&P Update DATE OF PROCEDURE: June 10, 2020 DATE H&P PERFORMED: 06/10/20 PREOP DIAGNOSIS: left dislocated ankle PLANNED PROCEDURE: Operation Date: 06/10/20 15:30 Proposed Procedures p Ex fix ankle(Left) - Pierce Mann DO
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
--- NOTE | 2020-06-10 16:42 | XR_ITS ---
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 Fractures are in good position alignment. XR/XR ankle LT 2V [id number] IMPRESSION: Intraoperative external fixator placement with fracture now in good alignment.
[2020-06-10 16:51] LABS: Glucose Point of Care 188 mg/dL (70-110)
--- NOTE | 2020-06-10 17:02 | PM.OP ---
Operative Report Date of procedure: June 10, 2020 Pre-op Diagnosis: left dislocated ankle Post-op diagnosis: same Procedure Done: External fixation to left ankle Uni planer Surgeon: Pierce Mann Anesthesia: General Estimated blood loss (mL): 5 Condition: stable Disposition: PACU Procedure: External fixation to left ankle Uni planer Patient is brought to the operative suite placed in the supine position all areas and patient well-padded. 2 stab incisions were made in the tibia and 1 in the calcaneus. Steinmann pins were placed into the tibia as well as the calcaneus. A delta frame was made for the exfix. Bean was placed between the 2 Steinmann pins. And then 2 rods were placed from the calcaneus to the bar on the 2 Steinmann pins in the tibia. AP lateral x-rays ensure that the ankle is reduced and the pins were then locked in position. Sterile dressings were applied and patient was transferred to the PACU in stable condition.
--- NOTE | 2020-06-10 17:16 | ANE.PACU2 ---
Inpatient post-anesthesia follow up: Airway intact: Yes Vital signs: Temperature 99.1 F Pulse Rate [Right Radial] 93 Pulse Rate 86 Respiratory Rate 16 Blood Pressure [Ri ght Arm] 126/79 Blood Pressure 99/82 Pulse Oximetry 96 Oxygen Delivery Me thod Room Air Oxygen Flow Rate 8 Fraction of Inspir ed Oxygen Hydration adequate: Yes Nausea and vomiting: No Pain level: 2 Mental status: Baseline
--- NOTE | 2020-06-10 17:20 | PC.NURSE ---
Patient returned from surgery at this time.
[2020-06-10 17:31] LABS: Glucose Point of Care 214 mg/dL (70-110)
[2020-06-10] MEDS: apixaban 5 mg Tablet PO (17:50)
--- NOTE | 2020-06-10 19:13 | PC.NURSE ---
Report to Anival AUSTIN at this time.
[2020-06-10 19:36] LABS: Vancomycin Trough 14.3 ug/mL (10-15)
--- NOTE | 2020-06-10 19:38 | P.PN_ITS ---
Subjective Subjective: Interval history: no new complaints, planned for placement of extrenal fixator with ortho today, CT face reveiwed Medications: Reviewed: Yes Vitals/I&O/Wt Last Vital Signs Temp 98.7 F 06/10/20 19:00 Pulse 87 06/10/20 19:00 Resp 16 06/10/20 19:00 BP 123/80 06/10/20 19:00 Pulse Ox 95 06/10/20 19:00 06/10/20 06/10/20 06/10/20 06:59 14:59 22:59 Intake Total 400 / 2670 300 / 300 480 / 780 Output Total 350 / 500 5 / 5 Balance 50 / 2170 300 / 300 475 / 775 Weight last 48 hrs Weight 100 kg Physical Exam Narrative: EXAM NARRATIVE: General: No acute distress, AO x3 HEENT: PERRLA, pupils bilaterally equal and reactive, pallors not present. Large hematoma involving the left temporal region and zygomatic area of the face, open wound draining pus. Painful to touch. Swelling extends to lateral canthus of the eyes, no orbital cellulitis or conjunctival congestion noted. Chest: Normal vesicular breath sounds, no added sounds, equal good air entry bilaterally CVS: S1-S2 regular, no murmurs, no tachycardia, no gallops, no rubs Abdomen: Soft, nontender, no organomegaly, bowel sounds present Neuro: No focal deficits, no facial deformity, AO x3, power 5/5 in all limbs Extremities: Left lower extremity in immobilizer at the ankle level. Data : 06/10/20 05:18 06/10/20 05:18 Micro: Microbiology 06/09/20 14:37 Blood Culture - Preliminary Blood NEGATIVE TO DATE 06/09/20 14:37 Blood Culture - Preliminary Blood NEGATIVE TO DATE 06/09/20 13:17 Gram Stain - Final Face Abscess Culture - Preliminary Staphylococcus aureus A&P Assessment and plan (1) Abscess of face: appears to be infected hematoma per history Multiple reported antibiotic allergies Started on aztreonam and vancomycin empirically, culture and sensitivity sent from the ER, will follow and narrow antibiotics accordingly. Past history of MRSA present CT of the face to a certain depth of infection noted, ENt consult in am to assess for I&D Status: Acute (2) Infection of wound hematoma: Status: Acute (3) COPD (chronic obstructive pulmonary disease): Status: Acute (4) Dislocation of ankle, closed: Orthopedic consult ordered from the ER Planned for extrenal fixator today PT OT assessment Pain management with as needed hydrocodone, morphine, patient takes multiple pain medications at home, will attempt to maintain similar regimen while in the hospital to avoid any withdrawal. Status: Acute Qualifiers: Encounter type: initial encounter Laterality: left Qualified Code(s): S93.05XA - Dislocation of left ankle joint, initial encounter Additional A&P Information Diabetes mellitus, uncontrolled, high-dose insulin sliding scale for now, will add Lantus based on 24-hour requirements Carbohydrate consistent diet Hypothyroidism continue [place] Thyroid COPD, not currently exacerbated, duo nebs and fluids budesonide inhalation Full code DVT prophylaxis, currently on Eliquis, appears to be due to history of PE. Attestations Medical Necessity Statement*: Planned for external fixator today, monitor abscess on iv abx Coding Level of Care Code Acute Cement And Concrete Plant Worker for Sridhar Posada Diagnoses Abscess of face L02.01 Infection of wound hematoma T14.8XXA; L08.9 COPD (chronic obstructive pulmonary disease) J44.9 Dislocation of ankle, closed S93.05XA Encounter type: initial encounter Laterality: left
[2020-06-10] MEDS: ipratropium-albuterol 3 mL Neb INHALATION (20:21)
[2020-06-10] MEDS: budesonide 0.5 mg/2 mL Neb INHALATION (20:21)
[2020-06-10 20:23] LABS: Glucose Point of Care 240 mg/dL (70-110)
[2020-06-10] MEDS: prazosin 1 mg Capsule 2 MG PO (20:41)
[2020-06-11] VITALS (8 sets, daily range): BP systolic 106–136; BP diastolic 62–78; PULSE 78–90; RESP 17–21; TEMP 36.6–37; O2SAT 95–98
[2020-06-11] MEDS: HYDROcodone-acetaminophen 5-325 mg Tablet 1 TAB PO ×3 (01:46→17:22)
[2020-06-11] MEDS: aztreonam 2,000 MG in sodium chloride 0.9% (plus) 100 ML 200 MG IV ×2 (04:40→16:55)
[2020-06-11 06:24] LABS: Glucose Point of Care 235 mg/dL (70-110)
[2020-06-11] MEDS: morphine ER (12 HR) 15 mg Tablet PO ×3 (06:27→21:51)
[2020-06-11] MEDS: vancomycin 1,500 MG/300 ML PIGGYBACK 200 MG IV ×2 (06:27→18:08)
--- NOTE | 2020-06-11 07:23 | PM.PN ---
Subjective Subjective: Interval history: Patient resting comfortably external fixator in place. Vitals/I&O/Wt Last Vital Signs Temp 98.4 F 06/11/20 04:00 Pulse 88 06/11/20 04:00 Resp 21 H 06/11/20 04:00 BP 117/69 06/11/20 04:00 Pulse Ox 96 06/11/20 04:00 06/10/20 06/11/20 06/11/20 22:59 06:59 14:59 Intake Total 1020 / 1320 560 / 1880 Output Total 405 / 405 Balance 615 / 915 560 / 1475 Weight last 48 hrs Weight 208 lb 4.8 oz Weight 220 lb 7.396 oz Physical Exam Narrative: EXAM NARRATIVE: Dressing clean dry and intact. External fixator in place. Patient in bed resting comfortably. Data : 06/10/20 05:18 06/10/20 05:18 Micro: Microbiology 06/09/20 14:37 Blood Culture - Preliminary Blood NEGATIVE TO DATE 06/09/20 14:37 Blood Culture - Preliminary Blood NEGATIVE TO DATE 06/09/20 13:17 Gram Stain - Final Face Abscess Culture - Preliminary Staphylococcus aureus A&P Assessment and plan (1) Dislocation of ankle, closed: Patient postop day #1 for ankle dislocation. I have a CT scan ordered of her ankle to further evaluate. Patient needs pin care daily. She is nonweightbearing of this ankle. She will likely be is external fixator for at least 4 to 6 weeks. Status: Acute Qualifiers: Encounter type: initial encounter Laterality: left Qualified Code(s): S93.05XA - Dislocation of left ankle joint, initial encounter Attestations Medical Necessity Statement*: Okay to discharge from orthopedic standpoint once CT scan is done. Coding Level of Care Code Acute Social Media Sr Strategy Manager for Sridhar Posada Diagnoses Dislocation of ankle, closed S93.05XA Encounter type: initial encounter Laterality: left
--- NOTE | 2020-06-11 08:29 | XR_ITS ---
WS: [id number] PORTABLE CHEST HISTORY: picc placement COMPARISON: 05/14/2018 RIGHT PICC line with tip terminating in the distal SVC. No complications. Mild pulmonary hyperexpansion with no pneumonia. No pleural effusion or pneumothorax. Cardiac size: Normal. Mediastinum/Aorta: Normal mediastinum. No osseous abnormality seen. XR/XR chest 1V portable [id number] IMPRESSION: Satisfactory placement LEFT PICC line.
[2020-06-11] MEDS: lurasidone 20 mg Tablet 80 MG PO (08:36)
[2020-06-11] MEDS: gabapentin 300 mg Capsule PO ×3 (08:37→21:51)
[2020-06-11] MEDS: zonisamide 100 MG Capsule 200 MG PO ×2 (08:37→17:19)
[2020-06-11] MEDS: levETIRAcetam 500 mg Tablet PO ×2 (08:37→17:19)
[2020-06-11] MEDS: duloxetine 60 mg Capsule 120 MG PO (08:37)
[2020-06-11] MEDS: atorvastatin 40 mg Tablet PO (08:37)
[2020-06-11] MEDS: methocarbamol 750 mg Tablet PO ×2 (08:37→17:22)
[2020-06-11] MEDS: apixaban 5 mg Tablet PO (08:37)
[2020-06-11] MEDS: famotidine 20 mg Tablet PO ×2 (08:37→17:19)
--- NOTE | 2020-06-11 10:12 | PC.NURSE ---
Patient to CT at this time.
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
[2020-06-11 10:52] LABS: Glucose Point of Care 243 mg/dL (70-110)
--- NOTE | 2020-06-11 11:13 | PM.PN ---
Subjective Subjective: Interval history: Status post external fixation of left ankle yesterday. Overall procedure was uneventful, patient tolerated it well. Abscess over face appears to be unchanged overall. General surgery consult placed. Afebrile, hemodynamically stable. Medications: Reviewed: Yes Vitals/I&O/Wt Last Vital Signs Temp 98.0 F 06/11/20 08:00 Pulse 78 06/11/20 09:09 Resp 18 06/11/20 09:09 BP 120/62 06/11/20 08:00 Pulse Ox 95 06/11/20 09:09 06/10/20 06/11/20 06/11/20 22:59 06:59 14:59 Intake Total 1020 / 1320 560 / 1880 240 / 240 Output Total 405 / 405 Balance 615 / 915 560 / 1475 240 / 240 Weight last 48 hrs Weight 94.483 kg Weight 100 kg Physical Exam Narrative: EXAM NARRATIVE: General: No acute distress, AO x3 HEENT: PERRLA, pupils bilaterally equal and reactive, pallors not present. Large hematoma involving the left temporal region and zygomatic area of the face, open wound draining pus. Painful to touch. Swelling extends to lateral canthus of the eyes, no orbital cellulitis or conjunctival congestion noted. Chest: Normal vesicular breath sounds, no added sounds, equal good air entry bilaterally CVS: S1-S2 regular, no murmurs, no tachycardia, no gallops, no rubs Abdomen: Soft, nontender, no organomegaly, bowel sounds present Neuro: No focal deficits, no facial deformity, AO x3, power 5/5 in all limbs Extremities: Left lower extremity in immobilizer at the ankle level. Data : 06/10/20 05:18 06/10/20 05:18 Micro: Microbiology 06/09/20 14:37 Blood Culture - Preliminary Blood NEGATIVE TO DATE 06/09/20 14:37 Blood Culture - Preliminary Blood NEGATIVE TO DATE 06/09/20 13:17 Gram Stain - Final Face Abscess Culture - Preliminary Staphylococcus aureus A&P Assessment and plan (1) Abscess of face: appears to be infected hematoma per history Multiple reported antibiotic allergies Started on aztreonam and vancomycin empirically Culture thus far showing MRSA, adequately covered with vancomycin, gram-negative rods also noted on the Gram stain, await final identification, continue aztreonam until then CT of the face with abscess overlying the left frontal and temporal calvarium with few small locules of air, most likely insurance sales representative of abscess, reactive parotid and cervical lymph nodes. ENT service not available over the weekend fabrication specialist. Will consult general surgery to assess for possible incision and drainage. No orbital or sinus extension noted on CT. Status: Acute (2) Infection of wound hematoma: Status: Acute (3) COPD (chronic obstructive pulmonary disease): Not currently exacerbated, continue nebulizations with DuoNeb and budesonide. Status: Acute (4) Dislocation of ankle, closed: Status post placement of an external fixator PT OT assessment Pain management with as needed hydrocodone, morphine, patient takes multiple pain medications at home, will attempt to maintain similar regimen while in the hospital to avoid any withdrawal. Status: Acute Qualifiers: Encounter type: initial encounter Laterality: left Qualified Code(s): S93.05XA - Dislocation of left ankle joint, initial encounter Additional A&P Information Diabetes mellitus, uncontrolled, high-dose insulin sliding scale for now, will add Lantus based on 24-hour requirements after plans for I&D are in place Carbohydrate consistent diet Hypothyroidism continue [place] Thyroid COPD, not currently exacerbated, duo nebs and fluids budesonide inhalation Full code DVT prophylaxis, holding Eliquis for now in view of further surgical procedures. We will use heparin 5000 every 8 as DVT prophylaxis in the interim. Attestations Medical Necessity Statement*: need for iv abx for face abscess, assess for need for I&D Coding Level of Care Code Acute Web Application Developer for Cassieg Swetha Diagnoses Abscess of face L02.01 Infection of wound hematoma T14.8XXA; L08.9 COPD (chronic obstructive pulmonary disease) J44.9 Dislocation of ankle, closed S93.05XA Encounter type: initial encounter Laterality: left
--- NOTE | 2020-06-11 11:36 | PC.RESP ---
PULMONARY REHAB INFORMATION SENT TO PATIENT.
--- NOTE | 2020-06-11 12:57 | PC.OT ---
OT note: Attempted x2 this morning. First attempt and pt was prepping for procedure. Second attempt pt reported high pain and requested to hold. Nurse alerted that pt requested pain medication. Will attempt later as able.
--- NOTE | 2020-06-11 14:23 | PC.NURSE ---
Patient returned to her room after visiting with her daughter.
--- NOTE | 2020-06-11 16:40 | CT_ITS ---
WS: [id number] CT LEFT ANKLE WITHOUT CONTRAST. HISTORY: fracture dislocation Technique: All CT scans at [facility] use at least one of these dose optimization techniq ues: automated exposure control; mA and/or kV adjustment per patient size (includes targeted exams wh ere dose is matched to clinical indication); or iterative reconstruction. DLP: 164.02 mGy.cm COMPARISON: 06/10/2020 External fixators have been applied from the mid to distal tibia to the calcaneus. There is a complex fracture involving the distal tibia. Fracture extends through the distal 4.6 cm of the tibia to the joint space. There are multiple fragments involving the medial and lateral distal t ibia. There is a transverse fracture extending through the tibial plafond and posterior malleolus. Th ere is very mild widening of the medial ankle mortise. Several small comminuted but nondisplaced frac tures involving the distal fibula. Oblique fracture involving the lateral distal tibia is displaced by 5.2 mm. The medial tibial fractur e is displaced by 2.3 mm. There is a large amount of soft tissue edema and joint effusion at the ankle. CT/CT ankle LT wo con* [id number] IMPRESSION: 1. Status post placement of external fixators. Significant improvement in alig nment at the tibiotalar joint. No dislocation. 2. Comminuted fracture involving the distal tibia with involvement of the medi al and lateral and posterior tibia and fracture extending across the plafond. T he lateral fragment is displaced by 5.2 mm. 3. Multiple small comminuted fractures distal fibula.
[2020-06-11 16:53] LABS: Glucose Point of Care 289 mg/dL (70-110)
[2020-06-11] MEDS: heparin 5,000 unit/mL INJ 1 mL 5000 UNIT SUBCUT (17:19)
--- NOTE | 2020-06-11 19:30 | PC.NURSE ---
Report to Cecille AUSTIN at this time.
[2020-06-11 20:25] LABS: Glucose Point of Care 331 mg/dL (70-110)
[2020-06-11] MEDS: prazosin 1 mg Capsule 2 MG PO (21:51)
[2020-06-12] VITALS (24 sets, daily range): BP systolic 89–137; BP diastolic 55–89; PULSE 70–93; RESP 13–20; TEMP 36.4–37.1; O2SAT 91–99; BMI 36.3
[2020-06-12] MEDS: methocarbamol 750 mg Tablet PO ×2 (01:31→12:30)
[2020-06-12] MEDS: heparin 5,000 unit/mL INJ 1 mL 5000 UNIT SUBCUT (01:31)
[2020-06-12] MEDS: aztreonam 2,000 MG in sodium chloride 0.9% (plus) 100 ML 200 MG IV (04:09)
[2020-06-12] MEDS: morphine ER (12 HR) 15 mg Tablet PO ×3 (06:13→21:12)
[2020-06-12 06:54] LABS: Glucose Point of Care 258 mg/dL (70-110)
[2020-06-12 07:46] LABS: Basophils # 0.1 10^3/uL (0.0-0.1); Basophils % 0.7 %; Eosinophils # 0.3 10^3/uL (0.0-0.8); Eosinophils % 3.3 %; Hematocrit 37.5 % (37.0-47.0); Hemoglobin 11.9 g/dL (11.5-15.3); Lymphocytes # 2.3 10^3/uL (0.8-4.8); Lymphocytes % 30.4 %; Mean Corpuscular HGB Conc 31.7 g/dL (30.0-36.0); Mean Corpuscular Hemoglobin 26.9 pg (28.0-34.0); Mean Corpuscular Volume 84.7 fL (81-99); Mean Platelet Volume 9.6 fL (7.4-10.4); Monocytes # 0.8 10^3/uL (0.2-0.9); Neutrophils # 4.11 10^3/uL (1.8-7.7); Neutrophils % 53.8 %; Nucleated Red Blood Cells % 0 %; Platelet Count 413 10^3/cmm (130-400); Red Blood Count 4.43 10^6/uL (4.1-5.3); Red Cell Distribution Width 14.7 % (12.1-15.1); White Blood Count 7.6 10^3/uL (4.0-10.0)
[2020-06-12 08:13] LABS: Alanine Aminotransferase 8 U/L (0-33); Albumin Level 2.3 g/dL (3.5-5.2); Alkaline Phosphatase 163 IU/L (35-105); Aspartate Amino Transferase 11 U/L (0-32); Blood Urea Nitrogen 9 mg/dL (6-20); Calcium 7.9 mg/dL (8.5-10.5); Carbon Dioxide 26 mmol/L (22-29); Chloride 102 mmol/L (98-107); Globulin 3.1 g/dL (1.3-4.6); Glucose 257 mg/dL (65-115); Osmolality Calculated 289 mOsm/kg (285-295); Sodium 136 mmol/L (136-145); Total Bilirubin 0.2 mg/dL (0.15-1.2); Total Protein 5.4 g/dL (6.6-8.7)
[2020-06-12 08:16] LABS: Vancomycin Trough 12.8 ug/mL (10-15)
[2020-06-12 08:20] LABS: Anion Gap 11.2 (5-19); Potassium 3.2 mmol/L (3.5-5.1)
[2020-06-12] MEDS: sodium chloride 0.9% 1,000 ML 30 ML IV (09:00)
[2020-06-12] MEDS: acetaminophen 1,000 MG/100 ML PIGGYBACK 400 MG IV (09:05)
[2020-06-12] MEDS: clindamycin 900 MG/50 ML PREMIX 100 MG IV (09:27)
[2020-06-12] MEDS: lidocaine 2% INJ 20 mL INJECTION (10:04)
--- NOTE | 2020-06-12 10:12 | P.OP_ITS ---
Operative Report Date of procedure: June 12, 2020 Pre-op Diagnosis: Left facial abscess Post-op diagnosis: same Post-op Findings: Necrotic eschar overlying the left temporal area residual necrotic tissues at the wound bed 10-15 mL of pus were revealed Procedure Done: 1-Incision and drainage of left facial abscess 2-Sharp debridement of the abscess cavity all the way to the muscle layer Implants: Packing using 1 inch Nu Gauze impregnated in lidocaine 2% Specimens removed/disposition: Tissues for cultures and sensitivities and swabs for cultures and sensitivities Surgeon: Chandler Mcknight Marketing Communications Associate: field radio technician Raya Circulating nurse Paty Anesthesia: General (LMA Dr. Moyer) Estimated blood loss (mL): 5 IV fluids (mL): 250 Condition: stable Disposition: floor Brief History: Symptomatic left facial abscess.Full H&P and informed consent per chart. Procedure: After identifying the patient holding area, the left side of the face was marked before the procedure by myself, patient was then taken to the operative suite, was placed in supine position, IV propofol was given by the anesthesia provider followed by LMA placement ,prophylactic IV antibiotics were given per protocol, both arms were tucked and all pressure points were padded giving special attention to the left lower extremity external fixator. Time-out was done verifying the patient's name/date of /planned procedure and destination after the procedure, all were in agreement. I noticed the left facial/temporal area necrotic with sinuses draining pus at the inferior pole of the wound, 11 blade knife was used for stab incision and 10 to 15 mL of pus were revealed, at that point I decided to debride the necrotic unhealthy tissues and further pockets were broken down by the examining fingers and the sharp debridement was carried on all the way to the left temporalis muscle. Safeguarding all vital structures. Particular attention to the left lateral canthus of the left eye as the eye was covered safely prior to the pr ocedure. Copious and thorough irrigation with warm saline was done, followed by appropriate hemostasis, Nu Gauze impregnated and lidocaine 2% was used to pack the abscess cavity. Dry dressing was then applied. Post debridement measurements 6 x 2.5 x 0[address] to the muscle layer Undermining towards the lateral part of the wound cavity Intraoperative photos were taken and retained to patient's medical records for future reference I Elected to approximate the inferior part of the wound with 3-0 nylon. Patient tolerated the procedure well, count of instruments, needles and sponges were completed at the end of the procedure.And then patient was taken to the recovery area in stable condition after extubation. I Was present for the whole entire procedure
--- NOTE | 2020-06-12 10:28 | ANES.PAUD2 ---
Pre-Anesthetic Update Pre-Anesthetic Assessment: Date of Surgery/Procedure: 06/12/20 Preop Diagnosis: Left facial abscess Proposed Procedure: Operation Date: 06/10/20 15:30 Proposed Procedures p Ex fix ankle(Left) - Pierce Mann DO Operation Date: 06/12/20 09:45 Proposed Procedures p Incision And Drainage facial abscess(Left) - Chandler Mcknight MD Any changes to Pre-Anesthetic Assessment?: No Last Intake: Intake Last Liquid Date 06/11/20 Last Liquid Time 11:55 Last Solid Date 06/11/20 Last Solid Time 18:00 Labs Last 48hrs: Laboratory Results - last 48 hr 06/09/20 06/10/20 06/10/20 13:17 10:52 16:46 WBC RBC Hgb Hct MCV MCH MCHC RDW Plt Count MPV Neut % (Auto) Lymph % (Auto) [place] % (Auto) Eos % (Auto) Baso % (Auto) Neut # (Auto) Lymph # (Auto) [place] # (Auto) Eos # (Auto) Baso # (Auto) Nucleated RBC % (a uto) Nucleated RBCs # Sodium Potassium Chloride Carbon Dioxide Anion Gap BUN Creatinine GFR Calculation Glucose POC Glucose 176 H 188 H Calculated Osmolal ity Calcium Total Bilirubin AST ALT Alkaline Phosphata se Total Protein Albumin Globulin Urine Color Yellow Urine Appearance Hazy A Urine pH 7 Ur Specific Gravit y 1.005 Urine Protein Neg Urine Glucose (UA) 4+ H Urine Ketones 1+ H Urine Blood 2+ H Urine Nitrate Negative Urine Bilirubin Neg Urine Urobilinogen 1 H Ur Leukocyte Suze ase Trace H Urine RBC 0-4 H Urine WBC 80-100 H Ur Squamous Epith Cells 40-55 H Urine Bacteria 4+ H Vancomycin Trough 06/10/20 06/10/20 06/10/20 17:26 19:00 20:18 WBC RBC Hgb Hct MCV MCH MCHC RDW Plt Count MPV Neut % (Auto) Lymph % (Auto) [place] % (Auto) Eos % (Auto) Baso % (Auto) Neut # (Auto) Lymph # (Auto) [place] # (Auto) Eos # (Auto) Baso # (Auto) Nucleated RBC % (a uto) Nucleated RBCs # Sodium Potassium Chloride Carbon Dioxide Anion Gap BUN Creatinine GFR Calculation Glucose POC Glucose 214 H 240 H Calculated Osmolal ity Calcium Total Bilirubin AST ALT Alkaline Phosphata se Total Protein Albumin Globulin Urine Color Urine Appearance Urine pH Ur Specific Gravit y Urine Protein Urine Glucose (UA) Urine Ketones Urine Blood Urine Nitrate Urine Bilirubin Urine Urobilinogen Ur Leukocyte Suze ase Urine RBC Urine WBC Ur Squamous Epith Cells Urine Bacteria Vancomycin Trough 14.3 06/11/20 06/11/20 06/11/20 06:20 10:47 16:48 WBC RBC Hgb Hct MCV MCH MCHC RDW Plt Count MPV Neut % (Auto) Lymph % (Auto) [place] % (Auto) Eos % (Auto) Baso % (Auto) Neut # (Auto) Lymph # (Auto) [place] # (Auto) Eos # (Auto) Baso # (Auto) Nucleated RBC % (a uto) Nucleated RBCs # Sodium Potassium Chloride Carbon Dioxide Anion Gap BUN Creatinine GFR Calculation Glucose POC Glucose 235 H 243 H 289 H Calculated Osmolal ity Calcium Total Bilirubin AST ALT Alkaline Phosphata se Total Protein Albumin Globulin Urine Color Urine Appearance Urine pH Ur Specific Gravit y Urine Protein Urine Glucose (UA) Urine Ketones Urine Blood Urine Nitrate Urine Bilirubin Urine Urobilinogen Ur Leukocyte Suze ase Urine RBC Urine WBC Ur Squamous Epith Cells Urine Bacteria Vancomycin Trough 06/11/20 06/12/20 06/12/20 20:22 06:50 07:30 WBC 7.6 RBC 4.43 Hgb 11.9 Hct 37.5 MCV 84.7 MCH 26.9 L MCHC 31.7 RDW 14.7 Plt Count 413 H MPV 9.6 Neut % (Auto) 53.8 Lymph % (Auto) 30.4 [place] % (Auto) 10.0 Eos % (Auto) 3.3 Baso % (Auto) 0.7 Neut # (Auto) 4.11 Lymph # (Auto) 2.3 [place] # (Auto) 0.8 Eos # (Auto) 0.3 Baso # (Auto) 0.1 Nucleated RBC % (a uto) 0 Nucleated RBCs # 0.0 Sodium Potassium Chloride Carbon Dioxide Anion Gap BUN Creatinine GFR Calculation Glucose POC Glucose 331 H 258 H Calculated Osmolal ity Calcium Total Bilirubin AST ALT Alkaline Phosphata se Total Protein Albumin Globulin Urine Color Urine Appearance Urine pH Ur Specific Gravit y Urine Protein Urine Glucose (UA) Urine Ketones Urine Blood Urine Nitrate Urine Bilirubin Urine Urobilinogen Ur Leukocyte Suze ase Urine RBC Urine WBC Ur Squamous Epith Cells Urine Bacteria Vancomycin Trough 06/12/20 06/12/20 07:30 07:30 WBC RBC Hgb Hct MCV MCH MCHC RDW Plt Count MPV Neut % (Auto) Lymph % (Auto) [place] % (Auto) Eos % (Auto) Baso % (Auto) Neut # (Auto) Lymph # (Auto) [place] # (Auto) Eos # (Auto) Baso # (Auto) Nucleated RBC % (a uto) Nucleated RBCs # Sodium 136 Potassium 3.2 L Chloride 102 Carbon Dioxide 26 Anion Gap 11.2 BUN 9 Creatinine 0.4 L GFR Calculation 167.0 H Glucose 257 H POC Glucose Calculated Osmolal ity 289 Calcium 7.9 L Total Bilirubin 0.2 AST 11 ALT 8 Alkaline Phosphata se 163 H Total Protein 5.4 L Albumin 2.3 L Globulin 3.1 Urine Color Urine Appearance Urine pH Ur Specific Gravit y Urine Protein Urine Glucose (UA) Urine Ketones Urine Blood Urine Nitrate Urine Bilirubin Urine Urobilinogen Ur Leukocyte Suze ase Urine RBC Urine WBC Ur Squamous Epith Cells Urine Bacteria Vancomycin Trough 12.8 Vitals: Temperature 98.3 F 06/12/20 08:25 Temperature Source Temporal Artery S can 06/12/20 08:25 Pulse Rate 77 06/12/20 08:25 Pulse Rhythm 06/11/20 20:00 Pulse Strength 3+ Normal 06/11/20 20:00 Respiratory Rate 16 06/12/20 08:25 Respiratory Effort Non-Labored 06/11/20 08:00 Respiratory Depth Normal 06/11/20 08:00 Respiratory Patter n 06/11/20 08:00 Blood Pressure 115/68 06/12/20 08:25 Blood Pressure Jessie n 83 06/12/20 08:25 Blood Pressure Pos ition Semi Fowlers 06/12/20 07:46 Pulse Oximetry 92 06/12/20 08:25 Oxygen Delivery Me thod 06/12/20 08:25 Oxygen Flow Rate 8 06/10/20 16:49 Sepsis Recent Feve r Within 48 Hours No 06/09/20 12:08 Sepsis New/Unexpla ined Change in Men gely Status No 06/09/20 12:08 Sepsis Action Take n by Nursing Physician Notifie d 06/09/20 12:08 Exam: Pre-Anes Outpt Exam: alert, oriented x 3, clear to auscultation bilaterally and regular rate & rhythm Cardiac Studies: No Data to Display
--- NOTE | 2020-06-12 10:28 | ANE.PACU2 ---
Inpatient post-anesthesia follow up: Airway intact: Yes Vital signs: Temperature 98.3 F Pulse Rate [Right Radial] 93 Pulse Rate 77 Respiratory Rate 16 Blood Pressure [Ri ght Arm] 126/79 Blood Pressure 115/68 Pulse Oximetry 92 Oxygen Delivery Me thod Room Air Oxygen Flow Rate 8 Fraction of Inspir ed Oxygen Hydration adequate: Yes Nausea and vomiting: No Pain level: 1 Mental status: Baseline
--- NOTE | 2020-06-12 10:33 | PC.OT ---
OT tx attempted. Pt is in surgery. Will attempt later today if possible.
[2020-06-12 11:18] LABS: Glucose Point of Care 263 mg/dL (70-110)
[2020-06-12] MEDS: HYDROcodone-acetaminophen 5-325 mg Tablet 1 TAB PO (12:30)
[2020-06-12] MEDS: gabapentin 300 mg Capsule PO ×2 (14:29→21:12)
[2020-06-12] MEDS: vancomycin 1,500 MG/300 ML PIGGYBACK 200 MG IV ×2 (14:29→21:15)
--- NOTE | 2020-06-12 16:38 | PM.PN ---
Subjective Subjective: Interval history: s/p Incision and drainage of left facial abscess earlier today, tolerated procedure well, no complications, abscess culture sent. Medications: Reviewed: Yes Vitals/I&O/Wt Last Vital Signs Temp 98.0 F 06/12/20 11:45 Pulse 92 06/12/20 15:49 Resp 18 06/12/20 15:49 BP 102/70 06/12/20 15:49 Pulse Ox 92 06/12/20 15:49 06/12/20 06/12/20 06/12/20 06:59 14:59 22:59 Intake Total 100 / 1410 390 / 390 Output Total 5 / 5 Balance 100 / 960 385 / 385 Weight last 48 hrs Weight 102.194 kg Weight 94.483 kg Physical Exam Narrative: EXAM NARRATIVE: General: No acute distress, AO x3 HEENT: PERRLA, pupils bilaterally equal and reactive, pallors not present. Surgical dressing in place over the left cheek, not open for exam Chest: Normal vesicular breath sounds, no added sounds, equal good air entry bilaterally CVS: S1-S2 regular, no murmurs, no tachycardia, no gallops, no rubs Abdomen: Soft, nontender, no organomegaly, bowel sounds present Neuro: No focal deficits, no facial deformity, AO x3, power 5/5 in all limbs Extremities: Left lower extremity in immobilizer at the ankle level. Data : 06/12/20 07:30 06/12/20 07:30 Micro: Microbiology 06/12/20 09:49 Gram Stain - Final Face 06/12/20 10:49 Gram Stain - Final Face 06/09/20 13:17 Gram Stain - Final Face Abscess Culture - Final Methicillin Resis Staph Aureus A&P Assessment and plan (1) Abscess of face: appears to be infected hematoma per history Multiple reported antibiotic allergies Started on aztreonam and vancomycin empirically, thus far all cultures with MRSA, discontinue aztreonam and continue vancomycin only. CT of the face with abscess overlying the left frontal and temporal calvarium with few small locules of air, most likely inside sales representative of abscess, reactive parotid and cervical lymph nodes. Status post incision and drainage of facial abscess earlier today, tolerated procedure well, pain is currently well controlled. Status: Acute (2) Infection of wound hematoma: Status: Acute (3) COPD (chronic obstructive pulmonary disease): Not currently exacerbated, continue nebulizations with DuoNeb and budesonide. Status: Acute (4) Dislocation of ankle, closed: Status post placement of an external fixator PT OT assessment Pain management with as needed hydrocodone, morphine, patient takes multiple pain medications at home, will attempt to maintain similar regimen while in the hospital to avoid any withdrawal. Status: Acute Qualifiers: Encounter type: initial encounter Laterality: left Qualified Code(s): S93.05XA - Dislocation of left ankle joint, initial encounter Additional A&P Information Diabetes mellitus, uncontrolled, high-dose insulin sliding scale for now, add Lantus 10 units at bedtime Carbohydrate consistent diet Hypothyroidism continue [place] Thyroid COPD, not currently exacerbated, duo nebs and fluids budesonide inhalation Full code DVT prophylaxis, holding Eliquis for now in view of surgical procedures. We will use heparin 5000 every 8 as DVT prophylaxis in the interim. Attestations Medical Necessity Statement*: s/p I&D today, iv abx Coding Level of Care Code Acute Customer Sales Representative for Sridhar Posada Diagnoses Abscess of face L02.01 Infection of wound hematoma T14.8XXA; L08.9 COPD (chronic obstructive pulmonary disease) J44.9 Dislocation of ankle, closed S93.05XA Encounter type: initial encounter Laterality: left
[2020-06-12 17:06] LABS: Glucose Point of Care 241 mg/dL (70-110)
[2020-06-12] MEDS: zonisamide 100 MG Capsule 200 MG PO (18:02)
[2020-06-12] MEDS: levETIRAcetam 500 mg Tablet PO (18:02)
[2020-06-12] MEDS: famotidine 20 mg Tablet PO (18:02)
[2020-06-12 20:25] LABS: Glucose Point of Care 306 mg/dL (70-110)
[2020-06-12] MEDS: insulin glargine 100 units/1 mL 10 UNIT SUBCUT (21:11)
[2020-06-12] MEDS: prazosin 1 mg Capsule 2 MG PO (21:12)
[2020-06-12] MEDS: morphine 4 mg/mL SDV 1 mL 2 MG IVP (23:18)
[2020-06-13] VITALS (9 sets, daily range): BP systolic 100–109; BP diastolic 65–75; PULSE 79–97; RESP 10–21; TEMP 36.3–36.9; O2SAT 93–97
[2020-06-13 04:44] LABS: Basophils % 0.5 %; Eosinophils # 0.3 10^3/uL (0.0-0.8); Eosinophils % 4.3 %; Hematocrit 37.7 % (37.0-47.0); Hemoglobin 12.1 g/dL (11.5-15.3); Lymphocytes # 2.9 10^3/uL (0.8-4.8); Lymphocytes % 38.2 %; Mean Corpuscular HGB Conc 32.1 g/dL (30.0-36.0); Mean Corpuscular Hemoglobin 26.9 pg (28.0-34.0); Mean Corpuscular Volume 83.8 fL (81-99); Mean Platelet Volume 9.8 fL (7.4-10.4); Monocytes # 0.8 10^3/uL (0.2-0.9); Monocytes % 10.1 %; Neutrophils # 3.44 10^3/uL (1.8-7.7); Nucleated Red Blood Cells % 0 %; Platelet Count 418 10^3/cmm (130-400); Red Cell Distribution Width 14.8 % (12.1-15.1); White Blood Count 7.5 10^3/uL (4.0-10.0)
[2020-06-13 05:16] LABS: Alanine Aminotransferase 9 U/L (0-33); Albumin Level 2.4 g/dL (3.5-5.2); Alkaline Phosphatase 172 IU/L (35-105); Aspartate Amino Transferase 16 U/L (0-32); Blood Urea Nitrogen 9 mg/dL (6-20); Carbon Dioxide 24 mmol/L (22-29); Chloride 107 mmol/L (98-107); Globulin 3.1 g/dL (1.3-4.6); Glucose 194 mg/dL (65-115); Osmolality Calculated 298 mOsm/kg (285-295); Sodium 142 mmol/L (136-145); Total Bilirubin 0.2 mg/dL (0.15-1.2); Total Protein 5.5 g/dL (6.6-8.7)
[2020-06-13] MEDS: morphine ER (12 HR) 15 mg Tablet PO ×3 (05:22→21:41)
[2020-06-13] MEDS: vancomycin 1,500 MG/300 ML PIGGYBACK 200 MG IV (05:22)
[2020-06-13 06:33] LABS: Glucose Point of Care 200 mg/dL (70-110)
--- NOTE | 2020-06-13 07:18 | P.PN_ITS ---
Subjective Subjective: Interval history: Patient overall feels better and no acute events overnight Medications: Reviewed: Yes Vitals/I&O/Wt Last Vital Signs Temp 97.8 F 06/13/20 07:08 Pulse 89 06/13/20 07:08 Resp 14 06/13/20 07:08 BP 101/71 06/13/20 07:08 Pulse Ox 95 06/13/20 07:08 06/12/20 06/13/20 06/13/20 22:59 06:59 14:59 Intake Total 969.5 / 1359.5 2170.5 / 3530.0 300 / 300 Output Total 350 / 355 50 / 405 Balance 619.5 / 1004.5 2120.5 / 3125.0 300 / 300 Weight last 48 hrs Weight 225 lb 4.8 oz Physical Exam Narrative: EXAM NARRATIVE: General: No acute distress, AO x3 HEENT: PERRLA, pupils bilaterally equal and reactive, pallors not present. Left facial wound status post I&D and debridement of abscess. Shows residual necrotic tissues but no evidence of pus, swelling substantially subsided and mild erythema is appreciated. Stitches in place at the inferior pole of the wound. Packing removed by me bedside and repacking was done in the presence of Ms. Allen nursing staff in the form of 1 inch Nu Gauze wet-to-dry with normal saline followed by 4 x 4's and paper tape. No neurological deficits and no visual complaints Data : 06/13/20 04:20 06/13/20 04:20 Micro: Microbiology 06/12/20 09:49 Gram Stain - Final Face 06/12/20 10:49 Gram Stain - Final Face 06/09/20 13:17 Gram Stain - Final Face Abscess Culture - Final Methicillin Resis Staph Aureus A&P Assessment and plan (1) Abscess of face: Surgical standpoint of view my recommendations as follows ; 1-nutrition optimization to help with wound healing 2-wound care in the form of twice daily packing with wet-to-dry 1 inch Nu Gauze followed by dry gauze and paper tape 3-management of medical comorbidities per hospitalist service 4-physical therapy consultation when needed will defer to orthopedics 5-assurance and education At this point it would be important to have head and neck service evaluate the wound for further potential intervention and will follow on recommendations. All questions have been answered and all concerns have been addressed to patient's satisfaction. Status: Resolved Attestations Medical Necessity Statement*: Continue inpatient hospitalization passing 2 midnights for medical and surgical care of the left facial abscess wound Time Spent in Patient Care: (>than 50% of time spent in counselling and/or direct pt care on unit) . Coding Level of Care Code Acute Tool Room Lathe Operator for Sridhar Posada Diagnoses Abscess of face L02.01
[2020-06-13] MEDS: morphine 4 mg/mL SDV 1 mL 2 MG IVP (09:29)
[2020-06-13] MEDS: gabapentin 300 mg Capsule PO ×3 (09:31→21:41)
[2020-06-13] MEDS: atorvastatin 40 mg Tablet PO (09:31)
[2020-06-13] MEDS: thyroid 60 mg Tablet 120 MG PO (09:31)
[2020-06-13] MEDS: zonisamide 100 MG Capsule 200 MG PO ×2 (09:31→16:54)
[2020-06-13] MEDS: famotidine 20 mg Tablet PO ×2 (09:31→16:54)
[2020-06-13] MEDS: levETIRAcetam 500 mg Tablet PO ×2 (09:31→16:54)
[2020-06-13] MEDS: duloxetine 60 mg Capsule 120 MG PO (09:32)
[2020-06-13] MEDS: lurasidone 20 mg Tablet 80 MG PO (09:36)
[2020-06-13 11:38] LABS: Glucose Point of Care 279 mg/dL (70-110)
[2020-06-13] MEDS: methocarbamol 750 mg Tablet PO ×2 (13:33→21:48)
[2020-06-13 14:16] LABS: Vancomycin Trough 26.9 ug/mL (10-15)
--- NOTE | 2020-06-13 16:12 | P.PN_ITS ---
Subjective Subjective: Interval history: all wound cx resulting with MRSA/Staph aureus, facial wound dressing changed today, reports that pain is poorly controlled Medications: Reviewed: Yes Vitals/I&O/Wt Last Vital Signs Temp 97.3 F L 06/13/20 15:45 Pulse 89 06/13/20 15:45 Resp 10 L 06/13/20 15:45 BP 100/65 06/13/20 15:45 Pulse Ox 93 06/13/20 15:45 06/13/20 06/13/20 06/13/20 06:59 14:59 22:59 Intake Total 2170.5 / 3530.0 900 / 900 Output Total 50 / 405 Balance 2120.5 / 3125.0 900 / 900 Weight last 48 hrs Weight 102.194 kg Physical Exam Narrative: EXAM NARRATIVE: General: No acute distress, AO x3 HEENT: PERRLA, pupils bilaterally equal and reactive, pallors not present. Surgical dressing in place over the left cheek, not opened for exam, pictures from dressing change reveiwed from this morning Chest: Normal vesicular breath sounds, no added sounds, equal good air entry bilaterally CVS: S1-S2 regular, no murmurs, no tachycardia, no gallops, no rubs Abdomen: Soft, nontender, no organomegaly, bowel sounds present Neuro: No focal deficits, no facial deformity, AO x3, power 5/5 in all limbs Extremities: left ankle extrenal fixatori in place Data : 06/13/20 04:20 06/13/20 04:20 Micro: Microbiology 06/12/20 09:49 Gram Stain - Final Face Abscess Culture - Preliminary Staphylococcus aureus 06/12/20 10:49 Gram Stain - Final Face Tissue Culture - Preliminary Staphylococcus aureus 06/09/20 13:17 Gram Stain - Final Face Abscess Culture - Final Methicillin Resis Staph Aureus A&P Assessment and plan (1) Abscess of face: Started after sustaining a fall few days ago CT of the face with abscess overlying the left frontal and temporal calvarium with few small locules of air, most likely guest services representative of abscess, reactive parotid and cervical lymph nodes. Status post incision and drainage of facial abscess on 06/12/20 All wound and abscess cx with MRSA Currently on vancomycin for treatment, anticipate at least 2 weeks course from debridement, further course remains dependent on clinical response. Picc line placed Gen/surg recommendations appreciated, wound care per surgery recommendations Head and neck surgery consult in am Possibly plastic surgery referral post discharge Status: Resolved (2) Infection of wound hematoma: Status: Acute (3) COPD (chronic obstructive pulmonary disease): Not currently exacerbated, continue nebulizations with DuoNeb and budesonide. Status: Acute (4) Dislocation of ankle, closed: Status post placement of an external fixator PT OT assessment Status: Acute Qualifiers: Encounter type: initial encounter Laterality: left Qualified Code(s): S93.05XA - Dislocation of left ankle joint, initial encounter Additional A&P Information Diabetes mellitus, uncontrolled, high-dose insulin sliding scale for now, increase Lantus 15 units at bedtime Suboptimal pain control: resume patient's home dose of oxy/APAP, remainder of pain medications per patient's home regimen, additional prn dilaudid hypokalemia: replete iv, refuses po potassium Carbohydrate consistent diet Hypothyroidism continue [place] Thyroid COPD, not currently exacerbated, duo nebs and fluids budesonide inhalation Full code dispo: SNF when ready for discharge DVT prophylaxis, holding Eliquis for now in view of surgical procedures, an ticipated increased risk of facial hematoma and bleeding. lovenox 40 qd for ppx in the interim Attestations Medical Necessity Statement*: iv antibiotics, head and neck surgery assessment Coding Level of Care Code Acute Tank Farm Attendant for Sridhar Posada Diagnoses Abscess of face L02.01 Infection of wound hematoma T14.8XXA; L08.9 COPD (chronic obstructive pulmonary disease) J44.9 Dislocation of ankle, closed S93.05XA Encounter type: initial encounter Laterality: left
[2020-06-13] MEDS: enoxaparin 40 mg/0.4 mL Syringe SUBCUT (16:45)
[2020-06-13] MEDS: lidocaine 1% 5 ML in potassium chloride premix 100 ML 25 ML IV (16:45)
[2020-06-13 16:59] LABS: Glucose Point of Care 211 mg/dL (70-110)
[2020-06-13 20:47] LABS: Glucose Point of Care 262 mg/dL (70-110)
[2020-06-13 21:09] LABS: Vancomycin Random 17.6 ug/mL (20.0-40.0)
[2020-06-13] MEDS: insulin glargine 100 units/1 mL 15 UNIT SUBCUT (21:43)
[2020-06-13] MEDS: hyDROXYzine 25 mg Capsule PO (21:43)
[2020-06-13] MEDS: zolpidem 5 mg Tablet 10 MG PO (21:48)
[2020-06-13] MEDS: HYDROmorphone 1 mg/mL INJ 1 mL IVP (23:52)
[2020-06-14] VITALS (10 sets, daily range): BP systolic 104–144; BP diastolic 71–96; PULSE 73–91; RESP 16–20; TEMP 36.6–36.9; O2SAT 93–98
[2020-06-14] MEDS: vancomycin 1,500 MG/300 ML PIGGYBACK 200 MG IV ×2 (01:24→12:18)
[2020-06-14 05:32] LABS: Alanine Aminotransferase 12 U/L (0-33); Albumin Level 2.5 g/dL (3.5-5.2); Alkaline Phosphatase 168 IU/L (35-105); Anion Gap 10.7 (5-19); Aspartate Amino Transferase 20 U/L (0-32); Blood Urea Nitrogen 12 mg/dL (6-20); Carbon Dioxide 25 mmol/L (22-29); Chloride 103 mmol/L (98-107); Globulin 2.8 g/dL (1.3-4.6); Glucose 247 mg/dL (65-115); Osmolality Calculated 288 mOsm/kg (285-295); Potassium 3.7 mmol/L (3.5-5.1); Sodium 135 mmol/L (136-145); Total Bilirubin 0.2 mg/dL (0.15-1.2); Total Protein 5.3 g/dL (6.6-8.7)
[2020-06-14] MEDS: morphine ER (12 HR) 15 mg Tablet PO ×3 (06:40→22:23)
[2020-06-14 06:42] LABS: Glucose Point of Care 244 mg/dL (70-110)
[2020-06-14] MEDS: methocarbamol 750 mg Tablet PO (07:53)
[2020-06-14] MEDS: zonisamide 100 MG Capsule 200 MG PO ×2 (07:53→18:05)
[2020-06-14] MEDS: duloxetine 60 mg Capsule 120 MG PO (07:53)
[2020-06-14] MEDS: thyroid 60 mg Tablet 120 MG PO (07:53)
[2020-06-14] MEDS: montelukast sodium 10 mg Tablet PO (07:54)
[2020-06-14] MEDS: gabapentin 300 mg Capsule PO ×3 (07:54→22:23)
[2020-06-14] MEDS: levETIRAcetam 500 mg Tablet PO ×2 (07:54→18:05)
[2020-06-14] MEDS: famotidine 20 mg Tablet PO ×2 (07:54→18:05)
[2020-06-14] MEDS: atorvastatin 40 mg Tablet PO (07:54)
[2020-06-14] MEDS: lurasidone 20 mg Tablet 80 MG PO (07:57)
[2020-06-14 11:13] LABS: Glucose Point of Care 251 mg/dL (70-110)
[2020-06-14] MEDS: HYDROmorphone 1 mg/mL INJ 1 mL IVP (11:58)
--- NOTE | 2020-06-14 12:31 | PM.PN ---
Subjective Subjective: Interval history: No acute event overnight.Facial Wound is healing fine,dressing changed last night. ENT consult done. Medications: Reviewed: Yes Vitals/I&O/Wt Last Vital Signs Temp 98.5 F 06/14/20 12:00 Pulse 86 06/14/20 12:00 Resp 18 06/14/20 12:00 BP 110/71 06/14/20 12:00 Pulse Ox 95 06/14/20 12:00 06/13/20 06/14/20 06/14/20 22:59 06:59 14:59 Intake Total 225 / 1125 300 / 1425 240 / 240 Output Total 400 / 400 Balance -175 / 725 300 / 1025 240 / 240 Weight last 48 hrs Weight 99.518 kg Physical Exam Const: COMMON NORMALS: patient oriented x3 HENMT: COMMON NORMALS: normocephalic and atraumatic HEAD & SCALP: normocephalic and atraumatic OTHER: Surgical dressing in place over the left cheek, wound examined after dressing removal,no pus,appropriate wound healing Eye: COMMON NORMALS: no scleral icterus GENERAL EYE: appearance normal, both eyes and all related structures Chest: COMMONS NORMALS: normal inspection of the chest and normal palpation of entire chest wall CHEST: Yes Symmetrical chest wall rise Resp: COMMON NORMALS: normal respiratory effort, No retractions, No use of accessory muscles and clear to auscultation bilaterally EFFORT & INSPECTION: Yes symmetric chest movement AUSCULTATION: clear to auscultation bilaterally Cardio: COMMON NORMALS: regular rate, regular rhythm, S1 normal heart sound present, S2 normal heart sound present, No gallops present (Cardio), No murmurs present (Cardio), No rub (Cardio) and Peripheral pulses 2+ throughout RATE: regular rate RHYTHM: regular rhythm HEART SOUNDS: S1 normal heart sound present and S2 normal heart sound present PERIPHERAL PULSES: Peripheral pulses 2+ throughout GI: COMMON NORMALS: Normal to inspection, nondistended, normoactive bowel sounds present, Soft to palpation, non-tender, No hepatosplenomegaly present and no masses AUSCULTATION: Yes normoactive bowel sounds PALPATION: Yes Soft to palpation and Yes No hepatosplenomegaly present RECTAL EXAM: deferred Extremity: COMMON NORMALS: no clubbing, cyanosis or edema and no pedal edema Neuro: COMMON NORMALS: patient oriented x3 Data : 06/13/20 04:20 06/14/20 04:06 Micro: Microbiology 06/12/20 10:49 Gram Stain - Final Face Anaerobic Culture - Preliminary Tissue Culture - Preliminary Methicillin Resis Staph Aureus 06/12/20 09:49 Gram Stain - Final Face Abscess Culture - Preliminary Methicillin Resis Staph Aureus A&P Assessment and plan (1) Abscess of face: Started after sustaining a fall few days ago CT of the face with abscess overlying the left frontal and temporal calvarium with few small locules of air, most likely sales training representative of abscess, reactive parotid and cervical lymph nodes. Status post incision and drainage of facial abscess on 06/12/20 All wound and abscess cx with MRSA Currently on vancomycin for treatment, anticipate at least 2 weeks course from debridement, further course remains dependent on clinical response. Picc line placed Gen/surg recommendations appreciated, wound care per surgery recommendations Head and neck surgery consult done:No new recommendations.She will follow ENT as outpatient in 2 weeks for possible repair/ or reconstruction might be necessary. Possibly plastic surgery referral post discharge Status: Resolved (2) Infection of wound hematoma: Status: Acute (3) COPD (chronic obstructive pulmonary disease): Not currently exacerbated, continue nebulizations with DuoNeb and budesonide. Status: Acute (4) Dislocation of ankle, closed: Status post placement of an external fixator PT OT assessment Status: Acute Qualifiers: Encounter type: initial encounter Laterality: left Qualified Code(s): S93.05XA - Dislocation of left ankle joint, initial encounter Additional A&P Information Diabetes mellitus, uncontrolled, high-dose insulin sliding scale for now, increase Lantus 15 units at bedtime Suboptimal pain control: resume patient's home dose of oxy/APAP, remainder of pain medications per patient's home regimen, additional prn dilaudid hypokalemia: replete iv, refuses po potassium Carbohydrate consistent diet Hypothyroidism continue Parrish Thyroid COPD, not currently exacerbated, duo nebs and fluids budesonide inhalation H/O P/E :On Eliquis at home. Currently on Hold. Full code dispo: SNF when ready for discharge DVT prophylaxis, holding Eliquis for now ( H/O P/E ) in view of surgical procedures, anticipated increased risk of facial hematoma and bleeding. lovenox 40 qd for ppx in the interim Attestations Medical Necessity Statement*: Patient needs to be in hospital for the management of lt facial abscess. Coding Level of Care Code Acute Economist Research Assistant for [facility] Fwd Diagnoses Abscess of face L02.01 Infection of wound hematoma T14.8XXA; L08.9 COPD (chronic obstructive pulmonary disease) J44.9 Dislocation of ankle, closed S93.05XA Encounter type: initial encounter Laterality: left
[2020-06-14] MEDS: hyDROXYzine 25 mg Capsule PO (14:37)
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
[2020-06-14 17:14] LABS: Glucose Point of Care 289 mg/dL (70-110)
[2020-06-14] MEDS: enoxaparin 40 mg/0.4 mL Syringe SUBCUT (18:04)
[2020-06-14] MEDS: oxyCODONE-APAP 10-325 mg Tablet 1 TAB PO (18:12)
--- NOTE | 2020-06-14 19:36 | PC.NURSE ---
Report to Liliya TSANG at this time.
--- NOTE | 2020-06-14 19:44 | PC.NURSE ---
Report to Liliya TSANG at ths time.
[2020-06-14 20:27] LABS: Glucose Point of Care 209 mg/dL (70-110)
[2020-06-14] MEDS: insulin glargine 100 units/1 mL 15 UNIT SUBCUT (22:24)
[2020-06-15 00:22] VITALS: BP 100/69; PULSE 90; RESP 18; TEMP 36.8; O2SAT 98
[2020-06-15] MEDS: HYDROmorphone 1 mg/mL INJ 1 mL IVP (01:13)
[2020-06-15] MEDS: vancomycin 1,500 MG/300 ML PIGGYBACK 200 MG IV ×2 (01:20→14:18)
[2020-06-15] MEDS: zolpidem 5 mg Tablet 10 MG PO (01:20)
[2020-06-15] MEDS: hyDROXYzine 25 mg Capsule PO (01:20)
[2020-06-15 04:34] VITALS: BP 102/68; PULSE 95; RESP 18; TEMP 36.7; O2SAT 96
[2020-06-15 06:27] LABS: Glucose Point of Care 241 mg/dL (70-110)
[2020-06-15] MEDS: morphine ER (12 HR) 15 mg Tablet PO ×2 (06:37→14:18)
--- NOTE | 2020-06-15 06:47 | P.PN_ITS ---
Subjective Subjective: Interval history: discussed pin care with her nurse Vitals/I&O/Wt Last Vital Signs Temp 98.0 F 06/15/20 04:34 Pulse 95 06/15/20 04:34 Resp 18 06/15/20 04:34 BP 102/68 06/15/20 04:34 Pulse Ox 96 06/15/20 04:34 06/14/20 06/14/20 06/15/20 14:59 22:59 06:59 Intake Total 790 / 790 300 / 1090 700 / 1790 Output Total 200 / 200 Balance 590 / 590 300 / 890 700 / 1590 Weight last 48 hrs Weight 219 lb 6.4 oz Physical Exam Narrative: EXAM NARRATIVE: CT scan of left ankle reviewed show good position of ankle Data : 06/13/20 04:20 06/14/20 04:06 Micro: Microbiology 06/09/20 14:37 Blood Culture - Final Blood NO GROWTH AFTER 5 DAYS 06/09/20 14:37 Blood Culture - Final Blood NO GROWTH AFTER 5 DAYS 06/12/20 10:49 Gram Stain - Final Face Anaerobic Culture - Preliminary Tissue Culture - Preliminary Methicillin Resis Staph Aureus 06/12/20 09:49 Gram Stain - Final Face Abscess Culture - Preliminary Methicillin Resis Staph Aureus A&P Assessment and plan (1) Dislocation of ankle, closed: NWB LLE Status: Acute Qualifiers: Encounter type: initial encounter Laterality: left Qualified Code(s): S93.05XA - Dislocation of left ankle joint, initial encounter Additional A&P Information NWB Attestations Medical Necessity Statement*: OK to D/C from orthopedic standpoint Coding Level of Care Code Acute Cytology Technologist for [facility] Fwd Diagnoses Dislocation of ankle, closed S93.05XA Encounter type: initial encounter Laterality: left
[2020-06-15 07:29] VITALS: BP 124/82; PULSE 84; RESP 16; TEMP 36.7; O2SAT 98
[2020-06-15] MEDS: lurasidone 20 mg Tablet 80 MG PO (09:04)
[2020-06-15] MEDS: zonisamide 100 MG Capsule 200 MG PO ×2 (09:05→16:58)
[2020-06-15] MEDS: gabapentin 300 mg Capsule PO ×2 (09:05→14:18)
[2020-06-15] MEDS: famotidine 20 mg Tablet PO ×2 (09:05→16:57)
[2020-06-15] MEDS: levETIRAcetam 500 mg Tablet PO ×2 (09:05→16:57)
[2020-06-15] MEDS: atorvastatin 40 mg Tablet PO (09:05)
[2020-06-15] MEDS: oxyCODONE-APAP 10-325 mg Tablet 1 TAB PO (09:05)
[2020-06-15] MEDS: duloxetine 60 mg Capsule 120 MG PO (09:05)
[2020-06-15] MEDS: methocarbamol 750 mg Tablet PO ×2 (09:05→16:57)
[2020-06-15 11:03] LABS: Glucose Point of Care 288 mg/dL (70-110)
[2020-06-15 11:30] VITALS: BP 96/67; PULSE 82; RESP 17; TEMP 36.8; O2SAT 94
--- NOTE | 2020-06-15 12:08 | PM.DCS ---
Discharge Providers Date of Admission: 06/09/20 17:03 Date of Discharge: June 15, 2020 Attending Provider at Admission: Linda Tyson MD Attending Provider at Discharge: Patrick Kulkarni MD Primary Care Provider: HAKAN Irvin Diagnoses at Discharge Discharge Diagnosis (1) Dislocation of ankle, closed: Status: Acute Qualifiers: Encounter type: initial encounter Laterality: left Qualified Code(s): S93.05XA - Dislocation of left ankle joint, initial encounter Reason for Visit Reason for Visit: infection around eye Hospital Course Hospital Course 54 year old female with multiple comorbidities presenting with history that she fell 1 week ago after which she developed a hematoma over her left side of the face and possibly fractured her ankle. Soon thereafter she could not bear weight and has been using her wheelchair to ambulate. Then again 3 to 4 days ago she fell in her home. After she got the hematoma on her face, initially she said the bruising involved entire left side of her face and also had her eyelids shut, the swelling continued to improve, however 3 days ago she noted that it was draining pus. No fever. She was prescribed clarithromycin from her PCP, however continues to have drainage from her facial wound and presented to the ER. She was found to have a left malleolus fracture, which was conservatively managed after discussion between ER physician and Dr. 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 All wound and abscess cx with MRSA. Abx Coverage was narrowed to I.V Vancomycin to complete 2 weeks course after initially being on broad spectrum Abxs. Picc line in place.Gen surgery and ENT was on Board. She will follow ENT in 2 weeks for possible further intervention. Dislocation of lt ankle, closed:s/p external fixator for at least 4 to 6 weeks.She will follow orthopedic as outpatient. Eliquis for her h/o P/E is being held for 2 weeks given risk of bleed at the wound site and anticipating possible near reconstructive surgery.She is being discharged on prophylactic lovenox. Patient responded well to the above medical management and is being discharged in stable condition to SNF. Physical Exam Const: COMMON NORMALS: patient oriented x3 HENMT: COMMON NORMALS: normocephalic and atraumatic HEAD & SCALP: normocephalic and atraumatic OTHER: Surgical dressing in place over the left cheek, wound examined after dressing removal,no pus,appropriate wound healing Eye: COMMON NORMALS: no scleral icterus GENERAL EYE: appearance normal, both eyes and all related structures Chest: COMMONS NORMALS: normal inspection of the chest and normal palpation of entire chest wall CHEST: Yes Symmetrical chest wall rise Resp: COMMON NORMALS: normal respiratory effort, No retractions, No use of accessory muscles and clear to auscultation bilaterally EFFORT & INSPECTION: Yes symmetric chest movement AUSCULTATION: clear to auscultation bilaterally Cardio: COMMON NORMALS: regular rate, regular rhythm, S1 normal heart sound present, S2 normal heart sound present, No gallops present (Cardio), No murmurs present (Cardio), No rub (Cardio) and Peripheral pulses 2+ throughout RATE: regular rate RHYTHM: regular rhythm HEART SOUNDS: S1 normal heart sound present and S2 normal heart sound present PERIPHERAL PULSES: Peripheral pulses 2+ throughout GI: COMMON NORMALS: Normal to inspection, nondistended, normoactive bowel sounds present, Soft to palpation, non-tender, No hepatosplenomegaly present and no masses AUSCULTATION: Yes normoactive bowel sounds PALPATION: Yes Soft to palpation and Yes No hepatosplenomegaly present RECTAL EXAM: deferred Extremity: COMMON NORMALS: no clubbing, cyanosis or edema and no pedal edema Neuro: COMMON NORMALS: patient oriented x3 Discharge Data Data Completed and Pending: Completed Studies During Hospitalization Category Date Time Status CT ankle LT wo co n* [id number] Routine Cat Scan 06/11/20 16:[address] facial bones w con [id number] Routine Cat Scan 06/10/20 07:00 Completed XR ankle LT 2V 73 600 Routine Exams 06/10/20 16:42 Completed XR ankle LT 2V 73 600 Stat Exams 06/09/20 12:45 Completed XR ankle LT 2V 73 600 Urgent Exams 06/09/20 17:01 Completed XR chest 1V anna ble [id number] Routine Exams 06/11/20 08:29 Completed XR foot LT 2V 736 20 Stat Exams 06/09/20 12:45 Completed Pending at discharge Category Date Time Status Anaerobic Culture Routine Lab 06/12/20 10:49 Results COVID [SARS Covid -2 Antigen] Routin e Lab 06/15/20 11:30 Received Tissue Culture an d Gram Stain Routi ne Lab 06/12/20 10:49 Results Vancomycin Trough Timed Lab 06/15/20 12:00 Ordered Labs from last 24 hours 06/15/20 06/15/20 06/15/20 11:30 10:52 06:22 POC Glucose 288 H 241 H SARS-CoV-2 Ag (Rap id) Pending 06/14/20 06/14/20 20:20 17:10 POC Glucose 209 H 289 H SARS-CoV-2 Ag (Rap id) Vitals: Last Vital Signs Temp 98.3 F 06/15/20 11:30 Pulse 82 06/15/20 11:30 Resp 17 06/15/20 11:30 BP 96/67 06/15/20 11:30 Pulse Ox 94 06/15/20 11:30 Discharge Plan Discharge Patient Disposition: Xfer SNF Condition: Stable Prescriptions: New Lovenox 40 mg/0.4 mL syringe 40 mg SUBCUT DAILY 14 Days Qty: 0.4 RF: 0 vancomycin 1.5 gram recon soln 1.5 g IV Q24H 10 Days Qty: 1 RF: 0 Continued albuterol sulfate [ProAir HFA] 90 mcg/actuation HFA aerosol inhaler 1 inh INHALATION QID PRN (Reason: shortness of breath or wheezing) Qty: 6.7 RF: 2 (DME) OneTouch Verio test strips Strip See Rx Instructions .ROUTE .MEDSUPPLY Qty: 100 RF: 5 Byetta 10 mcg/dose(250 mcg/mL) 2.4 mL pen injector 10 mcg SUBCUT BID Qty: 2.4 RF: 2 Flovent HFA 110 mcg/actuation HFA aerosol inhaler 2 puff INHALATION BID Qty: 12 RF: 2 Levemir FlexTouch U-100 Insuln 100 unit/mL (3 mL) insulin pen 60 unit SUBCUT BEDTIME Qty: 15 RF: 2 (DME) lancets [FreeStyle Lancets] 28 gauge misc See Rx Instructions .ROUTE .MEDSUPPLY Qty: 100 RF: 5 (DME) pen needle, diabetic [BD Lina 2nd Gen Pen Needle] 32 gauge x 5/32 needle See Rx Instructions .ROUTE .MEDSUPPLY Qty: 100 RF: 5 insulin aspart U-100 [Novolog Flexpen U-100 Insulin] 100 unit/mL (3 mL) insulin pen See Rx Instructions SUBCUT TID Qty: 15 RF: 2 gabapentin 300 mg capsule 300 mg PO TID 30 Days Qty: 90 RF: 1 methocarbamol 750 mg tablet 750 mg PO TID PRN (Reason: spasms) 30 Days Qty: 90 RF: 1 morphine 15 mg tablet extended release 15 mg PO Q8H 30 Days Qty: 90 RF: 0 oxycodone-acetaminophen 10-325 mg tablet 1 tab PO TID PRN (Reason: pain) 30 Days Qty: 90 RF: 0 mupirocin 2 % ointment 1 applic topical TID Qty: 22 RF: 0 levetiracetam [Keppra] 500 mg tablet 500 mg PO BID Qty: 60 RF: 11 duloxetine [Cymbalta] 60 mg capsule,delayed release(DR/EC) 120 mg PO DAILY Qty: 60 RF: 2 (DME) Hospital bed with trapeze bar See Rx Instructions .Route .MEDSUPPLY Qty: 1 RF: 0 (DME) blood-glucose meter [OneTouch Verio Flex Start] Kit See Rx Instructions .ROUTE .MEDSUPPLY Qty: 1 RF: 0 celecoxib [Celebrex] 200 mg capsule 200 mg PO BID Qty: 60 RF: 1 Latuda 80 mg tablet 80 mg PO DAILY Qty: 30 RF: 2 Tylenol 325 mg Tablet 650 mg PO DAILY RF: 0 Lipitor 40 mg tablet 40 mg PO DAILY RF: 0 Zonegran 100 mg capsule 200 mg PO BID RF: 0 Pepcid 20 mg tablet 20 mg PO DAILY RF: 0 Singulair 10 mg tablet 10 mg PO DAILY RF: 0 Ambien 10 mg tablet 10 mg PO BEDTIME PRN (Reason: sleep) RF: 0 cholecalciferol (vitamin D3) 125 mcg (5,000 unit) capsule 5,000 unit PO DAILY RF: 0 prazosin 2 mg capsule 2 mg PO BEDTIME RF: 0 Minerva Thyroid 120 mg tablet 120 mg PO DAILY RF: 0 Farxiga 10 mg tablet 10 mg PO DAILY RF: 0 hydroxyzine pamoate 25 mg capsule 25 mg PO TID PRN (Reason: anxiety) RF: 0 Held Eliquis 5 mg tablet 5 mg PO BID Qty: 60 RF: 2 Hold Instructions: Resume on 06/29/20. Discontinued clarithromycin 250 mg tablet 250 mg PO BID Qty: 20 RF: 0 Discharge Orders: Discharge Order (Routine); Ordered 06/15/20 Ordered By: Patrick Kulkarni Referrals: [facility] [Other] Pierce Mann DO [Physician] - 06/29/20 1:15 pm Addison Barkley FNP-C [Primary Care Provider] - 06/22/20 1:30 pm Linda Tyson MD [Hospitalist] - 06/29/20 11:30 am Dane Ceja MD [Physician] - 07/01/20 1:40 pm Discharge Diet: Diabetic Discharge Activity: Increase activity as tolerated Patient Instructions: Enoxaparin (Injection), Vancomycin (Injection) Activity Restrictions/Additional Instructions: You are being discharged from the hospital today during which time you have been under the care of Dr. Mann. You had a ankle fracture dislocation fracture. You were treated for this injury with external fixation. Which she will likely need for the next 4 to 6 weeks.. You may resume you normal diet (including any special diets as directed by your primary doctor) as well as your home medications. You should follow up with you primary doctor if you have any questions regarding medication you took prior to your stay in the hospital. You may take your pain medication as prescribed. After the first few days, take your pain medication as needed. Do not drive or drink alcohol while taking your pain medication. Your injury may increase your risk of developing a blood clot,or DVT, in your arm or leg. This could potentially dislodge and travel to your lungs and become a life threatening condition called apulmonary embolus,or PE. You have been prescribed Lovenox to be taken to prevent this. Frequent movement of the toes and other leg. Will also help prevent this from occurring. If you develop any new or worsening cough, chestpain, bloody sputum or shortness of breath, call 911 or go to the EmergencyRoom. Always keep your surgical incision/dressing clean and dry. If you experience increasing pain at your incision site, redness, swelling, increasing discharge, foul odors, or fevers (greater than 100.4), night sweats or chills you should call the office at the above number. If you feel this is an emergency you should be evaluated in the Emergency Department of a nearby hospital. Orthopedic Patient Instructions Summary: Weight Bearing: Nonweightbearing left ankle Activity: Nonweightbearing left ankle. Diet: Regular. Pin care: Clean pin sites daily with soap and water with a Q-tip Wound Care: Keep dressing clean and dry. Anticoagulation: Lovenox for 1 month Pain Medication: Take only as needed. Ice, rest and elevation will be of great benefit. Please plan to follow-up [facility] Dr Mann in 2 weeks. You will need to call the clinic [phone] to schedule this visit. Thank you far allowing me to participate in your care. Do not hesitate to call the office with any questions or concerns. Discharge Attestations Time Spent in Discharge Care*: less than 30 min Specific Discharge Activities: educating patient, educating and/or supporting family/caregiver, discussing with pcp/other providers, discussing with case maker/social workers/dc planners, documenting/other paperwork and evaluating patient/reviewing data Status at Discharge: Cognitive status at discharge: cognitively intact, Behavioral status at discharge: cooperative, Functional status at discharge: other assisted ambulation Overall status at discharge: patient is back to baseline Quality Metrics Clinical Quality Measures During this hospital stay, did patient experience: None Coding Level of Care Code Acute [facility] note Exam Comprehensive Diagnoses Dislocation of ankle, closed S93.05XA Encounter type: initial encounter Laterality: left
[2020-06-15] MEDS: montelukast sodium 10 mg Tablet PO (12:27)
[2020-06-15] MEDS: thyroid 60 mg Tablet 120 MG PO (12:28)
[2020-06-15 12:31] LABS: SARS Covid-2 Antigen Negative (Negative)
--- NOTE | 2020-06-15 13:30 | PC.OT ---
OT tx attempted. Pt is sleeping soundly and social security specialist entering the room for a conference call with pt regarding her daughter. Pt is possibly discharging to SNF later today. Will attempt tx later today if possible.
--- NOTE | 2020-06-15 13:42 | PC.NURSE ---
REPORT TO URIAH REPORT CALLED TO NORMAN TRISTAN AT [facility]
[2020-06-15 14:08] LABS: Vancomycin Trough 16.4 ug/mL (10-15)
--- NOTE | 2020-06-15 14:12 | PC.NURSE ---
VANC TROUGH KURT IN PHARMACY NOTIFIED OF VANC TROUGH HIGH AT 16.4 - PER KURT TROUGH NOT HIGH - PROCEED WITH GIVING VANC
[2020-06-15 15:56] VITALS: BP 90/56; PULSE 83; RESP 16; TEMP 36.8; O2SAT 92
[2020-06-15] MEDS: enoxaparin 40 mg/0.4 mL Syringe SUBCUT (16:57)
[2020-06-15 17:01] LABS: Glucose Point of Care 206 mg/dL (70-110)
--- NOTE | 2020-06-15 18:29 | PC.NURSE ---
DISCHARGE ANJ ON FLOOR TO RETRIEVE PT - ASSISTED PT TO STRETCHER - LEFT FOOT/EXTERNAL FIXATION ELEVATED ON PILLOW - PICC LINE INTACT - PT CURRENTLY DENIES NEEDS
[2020-06-15 18:32] VITALS: BP 90/56; PULSE 83; RESP 16; TEMP 36.8; O2SAT 92
== END 2020-06-15 18:35 | disposition skilled nursing facility (03) | DRG 983 ==
LOC: ER 14:43 → MEDSURG 17:26
PROVIDERS: Orthopaedic Surgery; Surgery; Admitting Provider Student in an Organized Health Care Education/Training Program; Emergency Provider Emergency Medicine; PCP Nurse Practitioner; Visit Provider Internal Medicine
PROC: 0J910ZX Drainage of Face Subcutaneous Tissue and Fascia, Open Approach, Diagnostic (ICD-10-PCS; principal; 2020-06-12 09:35)
DX: L02.01 Cutaneous abscess of face (principal); S82.302A Unspecified fracture of lower end of left tibia, initial encounter for closed fracture; W18.30XA Fall on same level, unspecified, initial encounter; Z88.0 Allergy status to penicillin; K21.9 Gastro-esophageal reflux disease without esophagitis; E03.9 Hypothyroidism, unspecified; F31.70 Bipolar disorder, currently in remission, most recent episode unspecified; G89.29 Other chronic pain; M25.552 Pain in left hip; M54.5 Low back pain; J44.9 Chronic obstructive pulmonary disease, unspecified; F41.1 Generalized anxiety disorder; Z86.711 Personal history of pulmonary embolism; E78.5 Hyperlipidemia, unspecified; G47.33 Obstructive sleep apnea (adult) (pediatric); F43.12 Post-traumatic stress disorder, chronic; E11.65 Type 2 diabetes mellitus with hyperglycemia; E55.9 Vitamin D deficiency, unspecified; Z79.891 Long term (current) use of opiate analgesic; Z79.4 Long term (current) use of insulin; Z79.51 Long term (current) use of inhaled steroids; E87.6 Hypokalemia; B95.62 Methicillin resistant Staphylococcus aureus infection as the cause of diseases classified elsewhere
CPT/HCPCS: 36415; 36416; 36569; 36592; 70487; 71045; 73600; 73620; 73700; 76000; 80053; 80202; 81001; 82009; 82962; 85025; 86140; 87040; 87070; 87075; 87077; 87176; 87186; 87205; 87426; 93005; 94640; 96365; 96366; 96367; 96372; 96375; 96376; 97161; 97166; 97530; 97535; 99285; A6446; C1713; J0330; J1100; J1170; J1644; J1650; J1815 ×2; J2270; J2405; J2704; J3010; J3370; J3480; J3490; J7030; J7626; Q9967

== ENCOUNTER → 2020-06-28 15:08 | Outpatient (BNVA) | payer MEDICAID, SELFPAY ==
[2020-06-25 10:39] VITALS: BP 105/77; BMI 37.1
== END ==
PROVIDERS: PCP Nurse Practitioner; Visit Provider Nurse Practitioner
DX: E11.65 Type 2 diabetes mellitus with hyperglycemia (principal); Z79.4 Long term (current) use of insulin; E03.8 Other specified hypothyroidism; Z79.899 Other long term (current) drug therapy
CPT/HCPCS: 80053; 80061; 83036; 84443; 85025

== ENCOUNTER → 2020-06-29 13:39 | Outpatient (BNVA) | payer MEDICAID, SELFPAY ==
[2020-06-25 10:39] VITALS: BP 105/77; BMI 37.1
== END ==
PROVIDERS: PCP Nurse Practitioner; Visit Provider Orthopaedic Surgery
DX: Z98.890 Other specified postprocedural states (principal); Z20.822 Contact with and (suspected) exposure to COVID-19
CPT/HCPCS: 73610; 87635

== ENCOUNTER → 2020-07-06 14:45 | Outpatient (BNVA) | payer MEDICAID, SELFPAY ==
[2020-06-25 10:39] VITALS: BP 105/77; BMI 37.1
== END ==
PROVIDERS: PCP Nurse Practitioner; Visit Provider Orthopaedic Surgery
DX: Z01.818 Encounter for other preprocedural examination (principal); Z20.822 Contact with and (suspected) exposure to COVID-19
CPT/HCPCS: 87635

== ENCOUNTER → 2020-07-07 13:25 | Outpatient (BNVA) | payer MEDICAID, SELFPAY ==
[2020-06-25 10:39] VITALS: BP 105/77; BMI 37.1
== END ==
PROVIDERS: PCP Nurse Practitioner; Visit Provider Nurse Practitioner
DX: G89.29 Other chronic pain (principal); M54.5 Low back pain; M25.552 Pain in left hip; Z86.14 Personal history of Methicillin resistant Staphylococcus aureus infection; Z79.891 Long term (current) use of opiate analgesic
CPT/HCPCS: 99215

== ENCOUNTER → 2020-07-08 07:40 | Outpatient (BNVA) | payer MEDICAID, SELFPAY ==
[2020-06-25 10:39] VITALS: BP 105/77; BMI 37.1
== END ==
PROVIDERS: PCP Nurse Practitioner; Visit Provider Nurse Practitioner
DX: F31.70 Bipolar disorder, currently in remission, most recent episode unspecified (principal); F43.12 Post-traumatic stress disorder, chronic; F41.1 Generalized anxiety disorder; E11.65 Type 2 diabetes mellitus with hyperglycemia; Z79.4 Long term (current) use of insulin
CPT/HCPCS: 99214

== ENCOUNTER 2020-07-09 05:23 | Day surgery (SDC) | payer MEDICAID, SELFPAY ==
[2020-06-25 10:39] VITALS: BP 105/77; BMI 37.1
[2020-07-08 15:32] VITALS: BMI 33.5
[2020-07-09] VITALS (9 sets, daily range): BP systolic 92–108; BP diastolic 60–80; PULSE 88–111; RESP 14–20; TEMP 36.1–36.6; O2SAT 93–100
--- NOTE | 2020-07-09 | SCC_ITS ---
Procedure Done: removal of External fixator 6.6 seconds of fluoroscopic guidance, for a cumulative dose of 0.16 mGy, was provided to Dr. Mann by the radiology department. C-arm images of the LEFT ankle were saved for the patient's permanent record. [facility]
--- NOTE | 2020-07-09 | XR_ITS ---
WS: [id number] Left ankle, C-arm fluoroscopy view, 07/09/2020 Clinical Data: Hardware removal Comparison: Left ankle, 06/29/2020. Findings: The orthopedic pins have been removed from the left tibia and calcaneus. XR/XR ankle LT min 3V* [id number] Impression: Satisfactory removal of orthopedic pins.
--- NOTE | 2020-07-09 06:36 | W.PM.OPSUD ---
Surgery/Procedure H&P Update DATE OF PROCEDURE: July 09, 2020 DATE H&P PERFORMED: 06/29/20 H&P UPDATE INFORMATION: I have reviewed H&P completed within last 30 days, I have examined patient prior to procedure and No changes to prior documentation PREOP DIAGNOSIS: ankle fracture PLANNED PROCEDURE: Operation Date: 07/09/20 07:00 Proposed Procedures p Hardware Removal External Fixator Left Lower Extremity 34289 S593.05XA(Left) - Pierce Mann DO
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
[2020-07-09 06:51] LABS: Glucose Point of Care 193 mg/dL (70-110)
[2020-07-09] MEDS: sodium chloride 0.9% 1,000 ML 30 ML IV (06:56)
[2020-07-09] MEDS: clindamycin 600 MG/50 ML PREMIX 100 MG IV (07:00)
--- NOTE | 2020-07-09 07:44 | PM.OP ---
Operative Report Date of procedure: July 09, 2020 Pre-op Diagnosis: ankle fracture Post-op diagnosis: same Procedure Done: removal of External fixator Surgeon: iPerce Mann Anesthesia: General Estimated blood loss (mL): 5 Condition: stable Disposition: PACU Procedure: Removal of exfix from left ankle. Patient is brought to the operative suite after undergoing anesthesia the external fixator was removed by removing the bolts and then the Schanz pins. The wounds were then cleaned with sterile dressings were applied and a posterior splint was applied. And patient was transferred to the PACU in stable condition.
[2020-07-09] MEDS: diphenhydrAMINE 50 mg/mL SDV 1mL 12.5 MG IVP (08:58)
--- NOTE | 2020-07-09 09:18 | ANE.PACU2 ---
Inpatient post-anesthesia follow up: Airway intact: Yes Vital signs: Temperature 97 F Pulse Rate 88 Respiratory Rate 18 Blood Pressure 101/60 Pulse Oximetry 99 Oxygen Delivery Me thod Room Air Oxygen Flow Rate 8 Fraction of Inspir ed Oxygen Hydration adequate: Yes Nausea and vomiting: Yes Pain level: 2 Mental status: Baseline
== END 2020-07-09 09:35 | disposition home or self-care (01) ==
PROVIDERS: PCP Nurse Practitioner; Visit Provider Orthopaedic Surgery
PROC: (CPT 20694; principal; 2020-07-09 07:00)
DX: S82.892D Other fracture of left lower leg, subsequent encounter for closed fracture with routine healing (principal); X58.XXXD Exposure to other specified factors, subsequent encounter; J44.9 Chronic obstructive pulmonary disease, unspecified; G47.30 Sleep apnea, unspecified; Z91.19 Patient's noncompliance with other medical treatment and regimen; K21.9 Gastro-esophageal reflux disease without esophagitis; E11.9 Type 2 diabetes mellitus without complications; M19.90 Unspecified osteoarthritis, unspecified site; Z86.73 Personal history of transient ischemic attack (TIA), and cerebral infarction without residual deficits; Z86.711 Personal history of pulmonary embolism; E03.9 Hypothyroidism, unspecified; G47.33 Obstructive sleep apnea (adult) (pediatric); E78.2 Mixed hyperlipidemia; E55.9 Vitamin D deficiency, unspecified
CPT/HCPCS: 20670; 36416; 73610; 76000; 82962; 96374; J1200; J2405; J2704; J3490; J7030

== ENCOUNTER → 2020-07-14 08:39 | Outpatient (BNVA) | payer MEDICAID, SELFPAY ==
[2020-06-25 10:39] VITALS: BP 105/77; BMI 37.1
== END ==
PROVIDERS: PCP Nurse Practitioner; Visit Provider Counselor Professional
DX: F43.12 Post-traumatic stress disorder, chronic (principal); F31.70 Bipolar disorder, currently in remission, most recent episode unspecified; F41.1 Generalized anxiety disorder; Z79.891 Long term (current) use of opiate analgesic
CPT/HCPCS: 90832

== ENCOUNTER → 2020-07-22 14:17 | Outpatient (BNVA) | payer MEDICAID, SELFPAY ==
[2020-06-25 10:39] VITALS: BP 105/77; BMI 37.1
== END ==
PROVIDERS: PCP Nurse Practitioner; Visit Provider Orthopaedic Surgery
DX: G89.18 Other acute postprocedural pain (principal); S82.202A Unspecified fracture of shaft of left tibia, initial encounter for closed fracture; X58.XXXA Exposure to other specified factors, initial encounter
CPT/HCPCS: 73610

== ENCOUNTER 2020-07-22 15:21 | Outpatient (CLI) | payer MEDICAID, SELFPAY ==
[2020-06-25 10:39] VITALS: BP 105/77; BMI 37.1
== END 2020-07-22 15:22 | disposition home or self-care (01) ==
LOC: SPT 15:22
PROVIDERS: PCP Nurse Practitioner; Visit Provider Orthopaedic Surgery
DX: Z46.89 Encounter for fitting and adjustment of other specified devices (principal); S82.202D Unspecified fracture of shaft of left tibia, subsequent encounter for closed fracture with routine healing; X58.XXXD Exposure to other specified factors, subsequent encounter
CPT/HCPCS: 97760; L4361

== ENCOUNTER 2020-07-23 09:26 | Outpatient (CLI) | payer MEDICAID, SELFPAY ==
[2020-06-25 10:39] VITALS: BP 105/77; BMI 37.1
== END 2020-07-23 09:27 | disposition home or self-care (01) ==
LOC: WOUND 09:26
PROVIDERS: PCP Nurse Practitioner; Visit Provider Surgery
DX: T81.89XA Other complications of procedures, not elsewhere classified, initial encounter (principal); Y83.8 Other surgical procedures as the cause of abnormal reaction of the patient, or of later complication, without mention of misadventure at the time of the procedure
CPT/HCPCS: 97597; G0463

== ENCOUNTER → 2020-07-28 08:34 | Outpatient (BNVA) | payer MEDICAID, SELFPAY ==
[2020-06-25 10:39] VITALS: BP 105/77; BMI 37.1
== END ==
PROVIDERS: PCP Nurse Practitioner; Visit Provider Counselor Professional
DX: F43.12 Post-traumatic stress disorder, chronic (principal); F31.70 Bipolar disorder, currently in remission, most recent episode unspecified; F41.1 Generalized anxiety disorder
CPT/HCPCS: 90832

== ENCOUNTER 2020-07-30 09:37 | Outpatient (CLI) | payer MEDICAID, SELFPAY ==
[2020-06-25 10:39] VITALS: BP 105/77; BMI 37.1
== END 2020-07-30 09:38 | disposition home or self-care (01) ==
LOC: WOUND 09:37
PROVIDERS: PCP Nurse Practitioner; Visit Provider Surgery
DX: T81.89XA Other complications of procedures, not elsewhere classified, initial encounter (principal); Y83.8 Other surgical procedures as the cause of abnormal reaction of the patient, or of later complication, without mention of misadventure at the time of the procedure
CPT/HCPCS: 97597

== ENCOUNTER 2020-08-06 09:31 | Outpatient (CLI) | payer MEDICAID, SELFPAY ==
[2020-06-25 10:39] VITALS: BP 105/77; BMI 37.1
== END 2020-08-06 09:32 | disposition home or self-care (01) ==
LOC: WOUND 09:33
PROVIDERS: PCP Nurse Practitioner; Visit Provider Nurse Practitioner Family
DX: T81.89XA Other complications of procedures, not elsewhere classified, initial encounter (principal); Y83.8 Other surgical procedures as the cause of abnormal reaction of the patient, or of later complication, without mention of misadventure at the time of the procedure
CPT/HCPCS: 11042

== ENCOUNTER 2020-08-13 09:24 | Outpatient (CLI) | payer MEDICAID, SELFPAY ==
[2020-06-25 10:39] VITALS: BP 105/77; BMI 37.1
== END 2020-08-13 09:25 | disposition home or self-care (01) ==
LOC: WOUND 09:25
PROVIDERS: PCP Nurse Practitioner; Visit Provider Thoracic Surgery (Cardiothoracic Vascular Surgery)
DX: T81.89XA Other complications of procedures, not elsewhere classified, initial encounter (principal); Y83.8 Other surgical procedures as the cause of abnormal reaction of the patient, or of later complication, without mention of misadventure at the time of the procedure
CPT/HCPCS: 97597

== ENCOUNTER → 2020-08-17 09:03 | Outpatient (BNVA) | payer MEDICAID, SELFPAY ==
[2020-06-25 10:39] VITALS: BP 105/77; BMI 37.1
== END ==
PROVIDERS: PCP Nurse Practitioner; Visit Provider Orthopaedic Surgery
DX: G89.18 Other acute postprocedural pain (principal); Z98.890 Other specified postprocedural states; X58.XXXD Exposure to other specified factors, subsequent encounter; M77.32 Calcaneal spur, left foot
CPT/HCPCS: 73610

== ENCOUNTER → 2020-08-18 07:31 | Outpatient (BNVA) | payer MEDICAID, SELFPAY ==
[2020-06-25 10:39] VITALS: BP 105/77; BMI 37.1
== END ==
PROVIDERS: PCP Nurse Practitioner; Visit Provider Counselor Professional
DX: F43.12 Post-traumatic stress disorder, chronic (principal); F31.70 Bipolar disorder, currently in remission, most recent episode unspecified; F41.1 Generalized anxiety disorder
CPT/HCPCS: 90832

== ENCOUNTER 2020-09-03 10:09 | Outpatient (CLI) | payer MEDICAID, SELFPAY ==
[2020-06-25 10:39] VITALS: BP 105/77; BMI 37.1
== END 2020-09-03 10:10 | disposition home or self-care (01) ==
LOC: WOUND 10:10
PROVIDERS: PCP Nurse Practitioner; Visit Provider Surgery
DX: T81.89XA Other complications of procedures, not elsewhere classified, initial encounter (principal); Y83.8 Other surgical procedures as the cause of abnormal reaction of the patient, or of later complication, without mention of misadventure at the time of the procedure
CPT/HCPCS: 97597

== ENCOUNTER → 2020-09-08 07:24 | Outpatient (BNVA) | payer MEDICAID, SELFPAY ==
[2020-06-25 10:39] VITALS: BP 105/77; BMI 37.1
== END ==
PROVIDERS: PCP Nurse Practitioner; Visit Provider Counselor Professional
DX: F43.12 Post-traumatic stress disorder, chronic (principal); F31.70 Bipolar disorder, currently in remission, most recent episode unspecified; F41.1 Generalized anxiety disorder
CPT/HCPCS: 90832

== ENCOUNTER 2020-09-10 10:32 | Outpatient (CLI) | payer MEDICAID, SELFPAY ==
[2020-06-25 10:39] VITALS: BP 105/77; BMI 37.1
== END 2020-09-10 10:33 | disposition home or self-care (01) ==
LOC: WOUND 10:33
PROVIDERS: PCP Nurse Practitioner; Visit Provider Surgery
DX: E11.622 Type 2 diabetes mellitus with other skin ulcer (principal); L98.492 Non-pressure chronic ulcer of skin of other sites with fat layer exposed
CPT/HCPCS: 97597

== ENCOUNTER 2020-09-17 09:26 | Outpatient (CLI) | payer MEDICAID, SELFPAY ==
[2020-06-25 10:39] VITALS: BP 105/77; BMI 37.1
== END 2020-09-17 09:27 | disposition home or self-care (01) ==
LOC: WOUND 09:26
PROVIDERS: PCP Nurse Practitioner; Visit Provider Surgery
DX: G89.29 Other chronic pain (principal); M54.5 Low back pain; M12.552 Traumatic arthropathy, left hip; Z79.891 Long term (current) use of opiate analgesic
CPT/HCPCS: 97597; 99214

== ENCOUNTER → 2020-11-23 09:34 | Outpatient (BNVA) | payer MEDICAID, SELFPAY ==
[2020-06-25 10:39] VITALS: BP 105/77; BMI 37.1
== END ==
PROVIDERS: PCP Nurse Practitioner; Visit Provider Nurse Practitioner
DX: F43.12 Post-traumatic stress disorder, chronic (principal); F31.70 Bipolar disorder, currently in remission, most recent episode unspecified; E03.8 Other specified hypothyroidism; G89.29 Other chronic pain; F41.1 Generalized anxiety disorder; M54.16 Radiculopathy, lumbar region; M25.552 Pain in left hip; E11.65 Type 2 diabetes mellitus with hyperglycemia; Z79.4 Long term (current) use of insulin; Z79.891 Long term (current) use of opiate analgesic
CPT/HCPCS: 99213; 99214

== ENCOUNTER → 2020-11-29 07:44 | Outpatient (BNVA) | payer MEDICAID, SELFPAY ==
[2020-06-25 10:39] VITALS: BP 105/77; BMI 37.1
== END ==
PROVIDERS: PCP Nurse Practitioner; Visit Provider Counselor Professional
DX: F43.12 Post-traumatic stress disorder, chronic (principal); F41.1 Generalized anxiety disorder; F31.70 Bipolar disorder, currently in remission, most recent episode unspecified
CPT/HCPCS: 90832

== ENCOUNTER → 2020-12-10 07:21 | Outpatient (BNVA) | payer MEDICAID, SELFPAY ==
[2020-06-25 10:39] VITALS: BP 105/77; BMI 37.1
== END ==
PROVIDERS: PCP Nurse Practitioner; Visit Provider Counselor Professional
DX: F43.12 Post-traumatic stress disorder, chronic (principal); F41.1 Generalized anxiety disorder; F31.70 Bipolar disorder, currently in remission, most recent episode unspecified
CPT/HCPCS: 90832

== ENCOUNTER → 2020-12-16 07:36 | Outpatient (BNVA) | payer MEDICAID, SELFPAY ==
[2020-06-25 10:39] VITALS: BP 105/77; BMI 37.1
== END ==
PROVIDERS: PCP Nurse Practitioner; Visit Provider Counselor Professional
DX: F43.12 Post-traumatic stress disorder, chronic (principal); F41.1 Generalized anxiety disorder; F31.70 Bipolar disorder, currently in remission, most recent episode unspecified
CPT/HCPCS: 90832

== ENCOUNTER → 2021-01-13 08:49 | Outpatient (BNVA) | payer MEDICAID, SELFPAY ==
[2020-06-25 10:39] VITALS: BP 105/77; BMI 37.1
== END ==
PROVIDERS: PCP Nurse Practitioner; Visit Provider Counselor Professional
DX: F31.70 Bipolar disorder, currently in remission, most recent episode unspecified (principal); F41.1 Generalized anxiety disorder; F43.12 Post-traumatic stress disorder, chronic
CPT/HCPCS: 90832

== ENCOUNTER → 2021-02-14 07:56 | Outpatient (BNVA) | payer MEDICAID, SELFPAY ==
[2020-06-25 10:39] VITALS: BP 105/77; BMI 37.1
== END ==
PROVIDERS: PCP Nurse Practitioner; Visit Provider Counselor Professional
DX: F43.12 Post-traumatic stress disorder, chronic (principal); F41.1 Generalized anxiety disorder; F31.70 Bipolar disorder, currently in remission, most recent episode unspecified
CPT/HCPCS: 90832; 80053; 80061; 81000; 83036; 83721; 84443; 85025

== ENCOUNTER → 2021-02-15 07:59 | Outpatient (BNVA) | payer MEDICAID, SELFPAY ==
[2021-02-14 14:45] VITALS: BP 105/77; BMI 37.1
== END ==
PROVIDERS: PCP Nurse Practitioner; Visit Provider Nurse Practitioner
DX: F31.70 Bipolar disorder, currently in remission, most recent episode unspecified (principal); F41.1 Generalized anxiety disorder; F43.12 Post-traumatic stress disorder, chronic; E03.8 Other specified hypothyroidism
CPT/HCPCS: 99214

== ENCOUNTER → 2021-02-16 14:16 | Outpatient (BNVA) | payer MEDICAID, SELFPAY ==
[2021-02-14 14:45] VITALS: BP 105/77; BMI 37.1
== END ==
PROVIDERS: PCP Nurse Practitioner; Visit Provider Anesthesiology
DX: G89.29 Other chronic pain (principal); M54.50 Low back pain, unspecified; M12.552 Traumatic arthropathy, left hip; Z79.891 Long term (current) use of opiate analgesic
CPT/HCPCS: 99214

== ENCOUNTER 2021-02-20 15:30 | Emergency (ER) | payer MEDICAID, SELFPAY ==
[2021-02-14 14:45] VITALS: BP 105/77; BMI 37.1
[2021-02-20] VITALS (7 sets, daily range): BP systolic 114–139; BP diastolic 64–91; PULSE 87–113; RESP 14–25; TEMP 36.5; O2SAT 92–96; BMI 37.1
--- NOTE | 2021-02-20 16:42 | XRR_ITS ---
PROCEDURE INFORMATION: Exam: XR Chest Exam date and time: 02/20/2021 4:42 PM Age: 55 years old Clinical indication: Cough TECHNIQUE: Imaging protocol: XR of the chest. Views: 1 view. COMPARISON: CR XR chest 1V portable [id number] 06/11/2020 9:16 AM FINDINGS: Lungs: Unremarkable. No consolidation. Pleural spaces: Unremarkable. No pleural effusion. No pneumothorax. Heart/Mediastinum: Unremarkable. No cardiomegaly. Bones/joints: Unremarkable. The stomach is moderately distended. XR/XR chest 1V portable [id number] IMPRESSION: No acute findings.
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
[2021-02-20 17:01] LABS: Basophils % 0.4 %; Eosinophils % 0.4 %; Hematocrit 48.6 % (37.0-47.0); Hemoglobin 14.4 g/dL (11.5-15.3); Lymphocytes # 1.5 10^3/uL (0.8-4.8); Lymphocytes % 26.1 %; Mean Corpuscular HGB Conc 29.6 g/dL (30.0-36.0); Mean Corpuscular Volume 91.2 fl (81-99); Mean Platelet Volume 10.6 fL (7.4-10.4); Monocytes # 0.7 10^3/uL (0.2-0.9); Neutrophils # 3.39 10^3/uL (1.8-7.7); Neutrophils % 59.5 %; Nucleated Red Blood Cells % 0 %; Platelet Count 224 10^3/cmm (130-400); Red Blood Count 5.33 10^6/uL (4.1-5.3); Red Cell Distribution Width 13.5 % (12.1-15.1); White Blood Count 5.7 10^3/uL (4.0-10.0)
[2021-02-20] MEDS: sodium chloride 0.9% 1,000 ML 999 ML IV ×3 (17:02→19:59)
[2021-02-20 17:22] LABS: Alanine Aminotransferase 21 U/L (0-33); Albumin Level 3.5 g/dL (3.5-5.2); Alkaline Phosphatase 215 IU/L (35-105); Aspartate Amino Transferase 18 U/L (0-32); Blood Urea Nitrogen 12 mg/dL (6-20); Calcium 8.2 mg/dL (8.5-10.5); Carbon Dioxide 20 mmol/L (22-29); Chloride 87 mmol/L (98-107); Globulin 2.6 g/dL (1.3-4.6); Glomerular Filtration Rate 74.7 mL/min (90-130); Sodium 124 mmol/L (136-145); Total Bilirubin 0.2 mg/dL (0.15-1.2); Total Protein 6.1 g/dL (6.6-8.7)
[2021-02-20 17:30] LABS: Osmolality Calculated 305 mOsm/kg (285-295)
[2021-02-20 17:44] LABS: Anion Gap 21.7 (5-19)
[2021-02-20 17:45] LABS: Glucose 947 mg/dL (65-115); Potassium 4.7 mmol/L (3.5-5.1)
[2021-02-20 17:52] LABS: Add Urine Microscopic? NO; Charge for UA Resulting for Rev
[2021-02-20 17:57] LABS: Blood Urine Neg (Negative); Glucose Urine UA 4+ (Normal); Ketones Urine Negative (Negative); Protein Urine Neg (Negative); Urine Appearance Clear (CLEAR); Urine Color Yellow (Yellow); pH Urine 5 (5-7)
[2021-02-20 17:58] LABS: Bilirubin Urine Neg (Negative); Leukocyte Esterase Urine Negative (Negative); Nitrate Urine Negative (Negative); Urobilinogen Urine Norm (Negative)
--- NOTE | 2021-02-20 18:01 | CTR_ITS ---
PROCEDURE INFORMATION: Exam: CT Head Without Contrast Exam date and time: 02/20/2021 6:01 PM Age: 55 years old Clinical indication: Injury or trauma; Blunt trauma (contusions or hematomas); Without loss of consciousness; Patient HX: Multiple recent falls w AMS and L hindu abrasion denies loc; Additional info: Fall TECHNIQUE: Imaging protocol: Computed tomography of the head without contrast. Radiation optimization: All CT scans at this facility use at least one of these dose optimization techniques: automated exposure control; mA and/or kV adjustment per patient size (includes targeted exams where dose is matched to clinical indication); or iterative reconstruction. COMPARISON: CT head wo con* [id number] 10/09/2019 5:07 PM RADIATION DOSE METRICS: Total DLP (mGy-cm): 758.27 FINDINGS: Brain: Moderate white matter disease and volume loss are identified. There is no acute infarct or edema. No hemorrhage. Cerebral ventricles: No ventriculomegaly. Paranasal sinuses: There is fluid in the left maxillary sinus and also in the ethmoid sinus. Mastoid air cells: Visualized mastoid air cells are well aerated. Bones/joints: Unremarkable. No acute fracture. Soft tissues: Unremarkable. CT/CT head wo con* [id number] IMPRESSION: No intracranial hemorrhage. There is fluid in the left maxillary and ethmoid sinuses.If there is desire for further evaluation, a face CT scan could be performed.
--- NOTE | 2021-02-20 18:12 | CTR_ITS ---
PROCEDURE INFORMATION: Exam: CT Cervical Spine Without Contrast Exam date and time: 02/20/2021 6:12 PM Age: 55 years old Clinical indication: Injury or trauma; Blunt trauma; Patient HX: Multiple recent falls C/O neck pain; Additional info: Fall TECHNIQUE: Imaging protocol: Computed tomography images of the cervical spine without contrast. Radiation optimization: All CT scans at this facility use at least one of these dose optimization techniques: automated exposure control; mA and/or kV adjustment per patient size (includes targeted exams where dose is matched to clinical indication); or iterative reconstruction. COMPARISON: CT head wo con* [id number] 02/20/2021 6:19 PM RADIATION DOSE METRICS: Total DLP (mGy-cm): 632.32 FINDINGS: Vertebrae: No acute fracture. Normal alignment. Soft tissues: Unremarkable. Lungs: Lung apices are normal. CT/CT cervical spin wo con* [id number] IMPRESSION: There is no evidence for fracture or facet dislocation.
[2021-02-20] MEDS: insulin regular-human 100 units/1 mL 10 UNIT IVP ×2 (18:29→19:52)
[2021-02-20 18:37] LABS: Glucose Point of Care > 600 mg/dL (70-110)
[2021-02-20 19:04] LABS: Ketone (Acetest) Serum Negative (Negative)
[2021-02-20 19:08] LABS: Adenovirus Not Detected (NOT DETECT); Chlamydia Pneumoniae Not Detected (NOT DETECT); Coronavirus 229E,HKU1,NL63,OC4 Not Detected (NOT DETECT); Human Metapneumovirus Not Detected (NOT DETECT); Human Rhinovirus/Enterovirus Not Detected (NOT DETECT); Influenza A Not Detected (NOT DETECT); Influenza A H1 Not Detected (NOT DETECT); Influenza A H1-2009 Not Detected (NOT DETECT); Influenza A H3 Not Detected (NOT DETECT); Influenza B Not Detected (NOT DETECT); Mycoplasma Pneumoniae Not Detected (NOT DETECT); Parainfluenza Virus Type 1 Not Detected (NOT DETECT); Parainfluenza Virus Type 2 Not Detected (NOT DETECT); Parainfluenza Virus Type 3 Not Detected (NOT DETECT); Parainfluenza Virus Type 4 Not Detected (NOT DETECT); Respiratory Syncytial Virus A Not Detected (NOT DETECT); Respiratory Syncytial Virus B Not Detected (NOT DETECT); SARS-COV-2 Detected (NOT DETECT)
[2021-02-20 19:46] LABS: ABG PCO2 39.3 mmHg (35-45); ABG PH Result 7.36 (7.35-7.45); Arterial Blood Gas Hematocrit 41.8 % (37-47); Base Excess ABG -3.2 mmol/L (-2.0-2.0); Blood Gas Sample Site Brachial, right; Blood Gas Sample Type Arterial; Oxygen Device NC; PO2 ABG 61.2 mmHg (80.0-100.0)
[2021-02-20] MEDS: morphine 4 mg/mL SDV 1 mL IVP (19:55)
[2021-02-20 21:40] LABS: Glucose Point of Care 366 mg/dL (70-110)
[2021-02-20 21:40] LABS: Glucose Point of Care 572 mg/dL (70-110)
== END 2021-02-20 21:39 | disposition home or self-care (01) ==
PROVIDERS: Emergency Medicine; Emergency Provider Emergency Medicine; PCP Nurse Practitioner
DX: U07.1 COVID-19 (principal); E11.65 Type 2 diabetes mellitus with hyperglycemia; R11.2 Nausea with vomiting, unspecified; R41.82 Altered mental status, unspecified; W19.XXXA Unspecified fall, initial encounter; J44.9 Chronic obstructive pulmonary disease, unspecified; G47.33 Obstructive sleep apnea (adult) (pediatric); E78.2 Mixed hyperlipidemia; E03.9 Hypothyroidism, unspecified; K21.9 Gastro-esophageal reflux disease without esophagitis; Z79.4 Long term (current) use of insulin; Z86.711 Personal history of pulmonary embolism; Z79.01 Long term (current) use of anticoagulants; Z79.891 Long term (current) use of opiate analgesic
CPT/HCPCS: 36415; 36416; 36600; 70450; 71045; 72125; 80053; 81003; 82009; 82803; 82962; 85025; 87635; 96361; 96374; 96375; 96376; 99284; J1815; J2270; J7030

== ENCOUNTER → 2021-03-21 09:21 | Outpatient (BNVA) | payer MEDICAID, SELFPAY ==
[2021-02-14 14:45] VITALS: BP 105/77; BMI 37.1
== END ==
PROVIDERS: PCP Nurse Practitioner; Visit Provider Counselor Professional
DX: F43.12 Post-traumatic stress disorder, chronic (principal); F41.1 Generalized anxiety disorder; F31.70 Bipolar disorder, currently in remission, most recent episode unspecified
CPT/HCPCS: 90832

== ENCOUNTER → 2021-03-29 07:25 | Outpatient (BNVA) | payer MEDICAID, SELFPAY ==
[2021-02-14 14:45] VITALS: BP 105/77; BMI 37.1
== END ==
PROVIDERS: PCP Nurse Practitioner; Visit Provider Nurse Practitioner
DX: F41.1 Generalized anxiety disorder (principal); F31.70 Bipolar disorder, currently in remission, most recent episode unspecified; F43.12 Post-traumatic stress disorder, chronic
CPT/HCPCS: 99214

== ENCOUNTER → 2021-04-18 08:33 | Outpatient (BNVA) | payer MEDICAID, SELFPAY ==
[2021-02-14 14:45] VITALS: BP 105/77; BMI 37.1
== END ==
PROVIDERS: PCP Nurse Practitioner; Visit Provider Counselor Professional
DX: F43.12 Post-traumatic stress disorder, chronic (principal); F41.1 Generalized anxiety disorder; F31.70 Bipolar disorder, currently in remission, most recent episode unspecified
CPT/HCPCS: 90832

== ENCOUNTER → 2021-05-24 07:29 | Outpatient (BNVA) | payer MEDICAID, SELFPAY ==
[2021-02-14 14:45] VITALS: BP 105/77; BMI 37.1
== END ==
PROVIDERS: PCP Nurse Practitioner; Visit Provider Nurse Practitioner
DX: F41.1 Generalized anxiety disorder (principal); F43.12 Post-traumatic stress disorder, chronic; F31.70 Bipolar disorder, currently in remission, most recent episode unspecified; E03.8 Other specified hypothyroidism
CPT/HCPCS: 99214

== ENCOUNTER → 2021-05-26 09:10 | Outpatient (BNVA) | payer MEDICAID, SELFPAY ==
[2021-02-14 14:45] VITALS: BP 105/77; BMI 37.1
== END ==
PROVIDERS: PCP Nurse Practitioner; Visit Provider Orthopaedic Surgery
DX: M12.552 Traumatic arthropathy, left hip (principal)
CPT/HCPCS: 72110; 99214

== ENCOUNTER → 2021-05-31 13:46 | Outpatient (BNVA) | payer MEDICAID, SELFPAY ==
[2021-02-14 14:45] VITALS: BP 105/77; BMI 37.1
== END ==
PROVIDERS: PCP Nurse Practitioner; Visit Provider Nurse Practitioner
DX: E11.65 Type 2 diabetes mellitus with hyperglycemia (principal); Z79.4 Long term (current) use of insulin; E03.8 Other specified hypothyroidism; E55.9 Vitamin D deficiency, unspecified
CPT/HCPCS: 80053; 80061; 81003; 82306; 83036; 84443; 87077; 87086; 87184

== ENCOUNTER → 2021-06-13 08:46 | Outpatient (BNVA) | payer MEDICAID, SELFPAY ==
[2021-02-14 14:45] VITALS: BP 105/77; BMI 37.1
== END ==
PROVIDERS: PCP Nurse Practitioner; Visit Provider Specialist
DX: G40.309 Generalized idiopathic epilepsy and epileptic syndromes, not intractable, without status epilepticus (principal); G43.711 Chronic migraine without aura, intractable, with status migrainosus; F43.12 Post-traumatic stress disorder, chronic
CPT/HCPCS: 99214

== ENCOUNTER → 2021-06-20 07:34 | Outpatient (BNVA) | payer MEDICAID, SELFPAY ==
[2021-02-14 14:45] VITALS: BP 105/77; BMI 37.1
== END ==
PROVIDERS: PCP Nurse Practitioner; Visit Provider Counselor Professional
DX: F43.12 Post-traumatic stress disorder, chronic (principal); F41.1 Generalized anxiety disorder; F31.70 Bipolar disorder, currently in remission, most recent episode unspecified
CPT/HCPCS: 90832

== ENCOUNTER → 2021-06-23 07:08 | Outpatient (BNVA) | payer MEDICAID, SELFPAY ==
[2021-02-14 14:45] VITALS: BP 105/77; BMI 37.1
== END ==
PROVIDERS: PCP Nurse Practitioner; Visit Provider Nurse Practitioner
DX: F41.1 Generalized anxiety disorder (principal); F43.12 Post-traumatic stress disorder, chronic; F31.70 Bipolar disorder, currently in remission, most recent episode unspecified; E03.8 Other specified hypothyroidism
CPT/HCPCS: 99214

== ENCOUNTER → 2021-07-29 07:20 | Outpatient (BNVA) | payer MEDICAID, SELFPAY ==
[2021-02-14 14:45] VITALS: BP 105/77; BMI 37.1
== END ==
PROVIDERS: PCP Nurse Practitioner; Visit Provider Counselor Professional
DX: F43.12 Post-traumatic stress disorder, chronic (principal); F41.1 Generalized anxiety disorder; F31.70 Bipolar disorder, currently in remission, most recent episode unspecified
CPT/HCPCS: 90832

== ENCOUNTER 2021-08-19 10:22 | Outpatient (CLI) | payer MEDICAID, SELFPAY ==
[2021-02-14 14:45] VITALS: BP 105/77; BMI 37.1
--- NOTE | 2021-08-19 06:48 | IR_ITS ---
WS: [id number] MYELOGRAM LUMBAR SPINE Fluoroscopic guided lumbar myelogram CLINICAL INFORMATION: low back pain COMPARISON: None. TECHNIQUE: The procedure, including risks, benefits, and complications, were discussed with the patie nt who agreed to proceed. A timeout was performed to confirm correct patient, procedure, and site. Using sterile technique, the patient was prepped and draped in the usual sterile fashion. After admin istration of local anesthesia using 1% preservative-free lidocaine and using fluoroscopic guidance, a 22-gauge spinal needle was advanced into the subarachnoid space at the L3-L4 level. Subsequently 13 cc of Omnipaque 240 was administered into the thecal sac. The needle was removed and hemostasis was a chieved. Spot fluoroscopic images were obtained. FLUOROSCOPIC TIME: 1min [id number] # of spot films: 13 Spot fluoroscopic images demonstrate lumbar scoliosis convex LEFT. No high-grade central canal stenos is. Slight anterolisthesis L4 on L5. No instability on flexion-extension. IR/IR myelogram sp lumbar [id number] IMPRESSION: 1. Uncomplicated lumbar myelogram. 2. Please see CT myelogram report for additional detail.
--- NOTE | 2021-08-19 10:35 | CT_ITS ---
WS: [id number] CT LUMBAR SPINE MYELOGRAM TECHNIQUE: CT myelogram of the lumbar spine with coronal and sagittal reformatted images. CLINICAL INFORMATION: low back pain COMPARISON: CT lumbar spine 2 DLP: 1711.[address] scans at [facility] use at least one of these dose optimization techniques: automated e xposure control; mA and/or kV adjustment per patient size (includes targeted exams where dose is matc hed to clinical indication); or iterative reconstruction. FINDINGS: Mild lumbar curve convex LEFT. No acute compression fractures. Slight anterolisthesis L4 on L5. Some subdural extension of contrast in the lower lumbar spine. L1-L2: Normal. L2-L3: Tiny LEFT foraminal protrusion with mild LEFT foraminal narrowing. Spinal canal and RIGHT fora men are patent. L3-L4: Mild disc bulging and osteophytic ridging. LEFT foraminal protrusion with mild LEFT foraminal narrowing and slight contact of the exiting LEFT L3 nerve root. RIGHT foramen is patent. Moderate fac et arthropathy. Ligamentum flavum hypertrophy. Spinal canal is patent. L4-L5: Mild disc bulging with eccentric osteophytic ridging. Mild LEFT and no significant RIGHT elvira inal narrowing. Moderate to advanced facet arthropathy ligamentum flavum flavum hypertrophy. Spinal c anal is patent. L5-S1: Mild annular bulging eccentric to the LEFT. Slight contact of the LEFT S1 nerve root. Spinal c anal is patent. Mild LEFT L5-S1 foraminal narrowing.. Visualized pelvic bony structures: Normal. Paravertebral soft tissues: Normal. CT/CT lumbar spine w con [id number] IMPRESSION: 1. LEFT foraminal protrusion L3-L4 slightly impinges the exiting LEFT L3 nerve root. Recommend correlation LEFT L3 nerve root symptoms. 2. LEFT eccentric disc bulging L4-L5 slightly encroaches on the far exiting LE FT L4 nerve root laterally. 3. Shallow LEFT pericentral disc bulge L5-S1 slightly impinges the traversing LEFT S1 nerve root in the subarticular recess. 4. Tiny LEFT foraminal protrusion L2-L3 slightly encroaches on the exiting LEF T L2 nerve root proximally. 5. Moderate facet arthropathy L4-L5 with ligamentum flavum hypertrophy.
== END 2021-08-19 10:23 | disposition home or self-care (01) ==
PROVIDERS: PCP Nurse Practitioner; Visit Provider Orthopaedic Surgery
DX: M51.26 Other intervertebral disc displacement, lumbar region (principal); M51.27 Other intervertebral disc displacement, lumbosacral region; M47.816 Spondylosis without myelopathy or radiculopathy, lumbar region
CPT/HCPCS: 62304; 72120; 72132; Q9966

== ENCOUNTER → 2021-08-23 15:57 | Outpatient (BNVA) | payer MEDICAID, SELFPAY ==
[2021-02-14 14:45] VITALS: BP 105/77; BMI 37.1
== END ==
PROVIDERS: PCP Nurse Practitioner; Visit Provider Nurse Practitioner
DX: E03.8 Other specified hypothyroidism (principal); E11.65 Type 2 diabetes mellitus with hyperglycemia; Z79.4 Long term (current) use of insulin; R19.7 Diarrhea, unspecified; N39.0 Urinary tract infection, site not specified
CPT/HCPCS: 80053; 80061; 81000; 83036; 84443; 85025; 87077; 87086; 87184

== ENCOUNTER → 2021-08-24 13:14 | Outpatient (BNVA) | payer MEDICAID, SELFPAY ==
[2021-02-14 14:45] VITALS: BP 105/77; BMI 37.1
== END ==
PROVIDERS: PCP Nurse Practitioner; Visit Provider Nurse Practitioner
DX: R19.7 Diarrhea, unspecified (principal)
CPT/HCPCS: 87506

== ENCOUNTER → 2021-08-25 11:03 | Outpatient (BNVA) | payer MEDICAID, SELFPAY ==
[2021-02-14 14:45] VITALS: BP 105/77; BMI 37.1
== END ==
PROVIDERS: PCP Nurse Practitioner; Visit Provider Orthopaedic Surgery
DX: M54.50 Low back pain, unspecified (principal); M12.552 Traumatic arthropathy, left hip
CPT/HCPCS: 99214

== ENCOUNTER 2021-09-28 19:18 | Emergency (ER) | payer MEDICAID, SELFPAY ==
[2021-02-14 14:45] VITALS: BP 105/77; BMI 37.1
[2021-09-28 19:32] VITALS: BP 146/82; PULSE 91; RESP 16; TEMP 37.1; O2SAT 95
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
--- NOTE | 2021-09-28 20:33 | XRR_ITS ---
PROCEDURE INFORMATION: Exam: XR Abdomen Exam date and time: 09/28/2021 8:57 PM Age: 55 years old Clinical indication: Nausea and vomiting; Additional info: N/v/d TECHNIQUE: Imaging protocol: Radiologic exam of the abdomen. Views: Frontal supine view of the abdomen. 1 View. COMPARISON: CT abdomen pelvis w con* [id number] 08/05/2019 4:54 PM FINDINGS: Gastrointestinal tract: Nonobstructive intestinal gas pattern. Gas is noted throughout most of the colon. Intraperitoneal space: Surgical clips related to cholecystectomy are noted the right upper quadrant. Postop change of the pelvis. Bones/joints: Mild degenerative spine changes. XR/XR KUB [id number] IMPRESSION: 1. No acute abnormality demonstrated. 2. There is no interval change from the prior examination.
[2021-09-28 20:54] LABS: Basophils # 0.1 10^3/uL (0.0-0.1); Basophils % 0.5 %; Eosinophils # 0.3 10^3/uL (0.0-0.8); Eosinophils % 2.7 %; Hematocrit 44.8 % (37.0-47.0); Hemoglobin 13.8 g/dL (11.5-15.3); Lymphocytes # 3.7 10^3/uL (0.8-4.8); Lymphocytes % 29.2 %; Mean Corpuscular HGB Conc 30.8 g/dL (30.0-36.0); Mean Corpuscular Volume 91.1 fl (81-99); Mean Platelet Volume 10.7 fL (7.4-10.4); Monocytes # 1.3 10^3/uL (0.2-0.9); Monocytes % 10.5 %; Neutrophils # 7.27 10^3/uL (1.8-7.7); Neutrophils % 56.6 %; Nucleated Red Blood Cells % 0 %; Platelet Count 304 10^3/cmm (130-400); Red Blood Count 4.92 10^6/uL (4.1-5.3); Red Cell Distribution Width 14.6 % (12.1-15.1); White Blood Count 12.8 10^3/uL (4.0-10.0)
[2021-09-28] MEDS: metoclopramide 5 mg/mL SDV 2 mL 10 MG IVP (20:56)
[2021-09-28] MEDS: sodium chloride 0.9% 1,000 ML 999 ML IV (20:57)
[2021-09-28 21:19] LABS: Albumin Level 3.9 g/dL (3.5-5.2); Alkaline Phosphatase 120 U/L (35-105); Blood Urea Nitrogen 12 mg/dL (6-20); Calcium 9.3 mg/dL (8.5-10.5); Carbon Dioxide 22 mmol/L (22-29); Globulin 3.4 g/dL (1.3-4.6); Glomerular Filtration Rate 74.7 mL/min (90-130); Glucose 311 mg/dL (65-115); Lipase 43 U/L (13-60); Total Bilirubin 0.2 mg/dL (0.15-1.2); Total Protein 7.3 g/dL (6.6-8.7)
[2021-09-28 21:37] VITALS: BP 109/64; PULSE 95; RESP 16; O2SAT 95
[2021-09-28 21:44] LABS: Alanine Aminotransferase 11 U/L (0-33); Aspartate Amino Transferase 12 U/L (0-32); Osmolality Calculated 300 mOsm/kg (285-295)
[2021-09-28 21:46] LABS: Anion Gap 19.2 (5-19); Chloride 102 mmol/L (98-107); Sodium 139 mmol/L (136-145)
[2021-09-28 21:47] LABS: Potassium 4.2 mmol/L (3.5-5.1)
[2021-09-28] MEDS: HYDROcodone-acetaminophen 7.5-325 mg Tablet 1 TAB PO (23:02)
[2021-09-28 23:10] VITALS: BP 103/55; PULSE 89; RESP 16; O2SAT 96
[2021-09-28 23:43] LABS: Urine Appearance Clear (CLEAR); Urine Color Yellow (Yellow); pH Urine 5 (5-7)
[2021-09-28 23:44] LABS: Add Urine Microscopic? YES; Bilirubin Urine Neg (Negative); Blood Urine Neg (Negative); Glucose Urine UA 4+ (Normal); Ketones Urine Negative (Negative); Leukocyte Esterase Urine Negative (Negative); Nitrate Urine Positive (Negative); Protein Urine Neg (Negative); Urobilinogen Urine Norm (Negative)
[2021-09-28 23:45] LABS: RBC Urine 0-4 /hpf (0-2); WBC Urine 0-4 /hpf (0-5)
[2021-09-28 23:46] LABS: Add Urine Culture? Yes; Bacteria Urine 4+ /hpf
[2021-09-28] MEDS: loperamide 2 mg Capsule 4 MG PO (23:59)
[2021-09-28] MEDS: nitrofurantoin SR (BID) 100 mg Capsule PO (23:59)
[2021-09-28] MEDS: metroNIDAZOLE 500 MG Tablet PO (23:59)
[2021-09-29 00:03] VITALS: BP 112/54; PULSE 94; RESP 15; TEMP 36.4; O2SAT 98
--- NOTE | 2021-09-29 00:08 | PC.NURSE ---
Discharge instructions reviewed with patient including prescriptions and follow up, patient expressed a verbal and written understanding, int dc'd
[2021-09-29 00:10] VITALS: BP 112/54; PULSE 94; RESP 15; TEMP 36.4; O2SAT 98
== END 2021-09-29 00:12 | disposition home or self-care (01) ==
PROVIDERS: Emergency Provider Nurse Practitioner Family; PCP Nurse Practitioner
DX: N39.0 Urinary tract infection, site not specified (principal); B95.2 Enterococcus as the cause of diseases classified elsewhere; K52.1 Toxic gastroenteritis and colitis; T36.95XA Adverse effect of unspecified systemic antibiotic, initial encounter
CPT/HCPCS: 51701; 74018; 80053; 81001; 83690; 85025; 87077; 87086; 87186; 87493; 96361; 96374; 99284; J2765; J7030

== ENCOUNTER → 2021-11-08 13:40 | Outpatient (BNVA) | payer MEDICAID, SELFPAY ==
[2021-02-14 14:45] VITALS: BP 105/77; BMI 37.1
== END ==
PROVIDERS: PCP Nurse Practitioner; Visit Provider Orthopaedic Surgery
DX: M87.352 Other secondary osteonecrosis, left femur (principal)
CPT/HCPCS: 99213

== ENCOUNTER → 2021-11-10 10:19 | Outpatient (BNVA) | payer MEDICAID, SELFPAY ==
[2021-02-14 14:45] VITALS: BP 105/77; BMI 37.1
== END ==
PROVIDERS: PCP Nurse Practitioner; Visit Provider Student in an Organized Health Care Education/Training Program
DX: M12.522 Traumatic arthropathy, left elbow (principal)
CPT/HCPCS: 73502; 99203

== ENCOUNTER → 2021-11-14 14:58 | Outpatient (BNVA) | payer MEDICAID, SELFPAY ==
[2021-02-14 14:45] VITALS: BP 105/77; BMI 37.1
== END ==
PROVIDERS: PCP Nurse Practitioner; Visit Provider Nurse Practitioner
DX: E11.65 Type 2 diabetes mellitus with hyperglycemia (principal); Z79.4 Long term (current) use of insulin; J45.909 Unspecified asthma, uncomplicated; Z86.711 Personal history of pulmonary embolism; E55.9 Vitamin D deficiency, unspecified; K21.9 Gastro-esophageal reflux disease without esophagitis; M12.552 Traumatic arthropathy, left hip; E03.8 Other specified hypothyroidism; R19.7 Diarrhea, unspecified; R11.0 Nausea; N39.0 Urinary tract infection, site not specified; Z23 Encounter for immunization
CPT/HCPCS: 80053; 80061; 81000; 83036; 84443; 85025; 87086; 87184

== ENCOUNTER 2021-11-20 14:17 | Emergency (ER) | payer MEDICAID, SELFPAY ==
[2021-02-14 14:45] VITALS: BP 105/77; BMI 37.1
[2021-11-20 14:35] VITALS: BP 114/76; PULSE 82; RESP 18; TEMP 36.8; O2SAT 96; BMI 37.1
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
[2021-11-20] MEDS: clindamycin 150 mg Capsule 300 MG PO (15:29)
== END 2021-11-20 15:34 | disposition home or self-care (01) ==
PROVIDERS: Emergency Provider Nurse Practitioner Family; PCP Nurse Practitioner
DX: L73.9 Follicular disorder, unspecified (principal); Z79.01 Long term (current) use of anticoagulants; Z79.4 Long term (current) use of insulin; J44.9 Chronic obstructive pulmonary disease, unspecified; E78.2 Mixed hyperlipidemia; E11.9 Type 2 diabetes mellitus without complications
CPT/HCPCS: 99283

== ENCOUNTER → 2021-12-12 10:12 | Outpatient (BNVA) | payer MEDICAID, SELFPAY ==
[2021-02-14 14:45] VITALS: BP 105/77; BMI 37.1
== END ==
PROVIDERS: PCP Nurse Practitioner; Visit Provider Specialist
DX: G40.309 Generalized idiopathic epilepsy and epileptic syndromes, not intractable, without status epilepticus (principal); G43.711 Chronic migraine without aura, intractable, with status migrainosus; F43.12 Post-traumatic stress disorder, chronic; F41.1 Generalized anxiety disorder
CPT/HCPCS: 99213

== ENCOUNTER → 2022-01-05 15:22 | Outpatient (BNVA) | payer MEDICAID, SELFPAY ==
[2022-01-04 14:13] VITALS: BP 105/77; BMI 37.1
== END ==
PROVIDERS: PCP Nurse Practitioner; Visit Provider Nurse Practitioner
DX: R39.9 Unspecified symptoms and signs involving the genitourinary system (principal)
CPT/HCPCS: 81000

== ENCOUNTER → 2022-01-24 14:56 | Outpatient (BNVA) | payer MEDICAID, SELFPAY ==
[2022-01-04 14:13] VITALS: BP 105/77; BMI 37.1
== END ==
PROVIDERS: PCP Nurse Practitioner; Visit Provider Nurse Practitioner
DX: E11.65 Type 2 diabetes mellitus with hyperglycemia (principal); Z79.4 Long term (current) use of insulin; J45.909 Unspecified asthma, uncomplicated; Z86.711 Personal history of pulmonary embolism; E55.9 Vitamin D deficiency, unspecified; K21.9 Gastro-esophageal reflux disease without esophagitis; M12.552 Traumatic arthropathy, left hip; E03.8 Other specified hypothyroidism; R19.7 Diarrhea, unspecified; R11.0 Nausea; Z23 Encounter for immunization
CPT/HCPCS: 84443

== ENCOUNTER → 2022-03-02 13:35 | Outpatient (BNVA) | payer MEDICAID, SELFPAY ==
[2022-01-04 14:13] VITALS: BP 105/77; BMI 37.1
== END ==
PROVIDERS: PCP Nurse Practitioner; Visit Provider Nurse Practitioner
DX: E11.65 Type 2 diabetes mellitus with hyperglycemia (principal); Z79.4 Long term (current) use of insulin; E55.9 Vitamin D deficiency, unspecified; E03.8 Other specified hypothyroidism
CPT/HCPCS: 80053; 80061; 83036; 84443

== ENCOUNTER 2022-05-11 11:54 | Outpatient (CLI) | payer MEDICAID, SELFPAY ==
--- NOTE | 2022-05-11 12:04 | MM_ITS ---
WS: [id number] BILATERAL SCREENING DIGITAL TOMOSYNTHESIS MAMMOGRAM WITH CAD HISTORY: Z12.39 - Encounter for other screening for malignant neop... COMPARISON: 06/08/2016 and 01/08/2014 Bilateral CC and MLO views with tomosynthesis and synthetic mammography submitted. Computer aided det ection analyzed. Breast composition: There are scattered areas of fibroglandular density. No suspicious masses, microc alcifications or architectural distortion. Benign stable lymph node upper outer quadrant LEFT breast. MM/[place] [id number] IMPRESSION: BI-RADS: 2-Benign FOLLOW UP: 1 Year Follow-up
== END 2022-05-11 11:55 | disposition home or self-care (01) ==
PROVIDERS: PCP Nurse Practitioner; Visit Provider Nurse Practitioner Women's Health
DX: Z12.31 Encounter for screening mammogram for malignant neoplasm of breast (principal)
CPT/HCPCS: 77063; 77067

== ENCOUNTER → 2022-05-12 11:22 | Outpatient (BNVA) | payer MEDICAID, SELFPAY ==
[2022-01-04 14:13] VITALS: BP 105/77; BMI 37.1
== END ==
PROVIDERS: PCP Nurse Practitioner; Visit Provider Nurse Practitioner
DX: E55.9 Vitamin D deficiency, unspecified (principal); E11.65 Type 2 diabetes mellitus with hyperglycemia; Z79.4 Long term (current) use of insulin; N39.0 Urinary tract infection, site not specified
CPT/HCPCS: 80053; 80061; 81000; 82043; 82306; 82607; 83036; 84443; 87077; 87086; 87184

== ENCOUNTER → 2022-05-18 14:48 | Outpatient (BNVA) | payer MEDICAID, SELFPAY ==
[2022-01-04 14:13] VITALS: BP 105/77; BMI 37.1
== END ==
PROVIDERS: PCP Nurse Practitioner; Visit Provider Orthopaedic Surgery
DX: M12.552 Traumatic arthropathy, left hip (principal); M54.50 Low back pain, unspecified; E11.649 Type 2 diabetes mellitus with hypoglycemia without coma; Z79.4 Long term (current) use of insulin
CPT/HCPCS: 99213

== ENCOUNTER → 2022-05-31 14:04 | Outpatient (BNVA) | payer MEDICAID, SELFPAY ==
[2022-05-26 14:22] VITALS: BP 105/77; BMI 37.1
== END ==
PROVIDERS: PCP Nurse Practitioner; Visit Provider Surgery
DX: Z86.010 Personal history of colon polyps; R11.2 Nausea with vomiting, unspecified
CPT/HCPCS: 99203

== ENCOUNTER → 2022-06-02 11:25 | Outpatient (BNVA) | payer MEDICAID, SELFPAY ==
[2022-05-26 14:22] VITALS: BP 105/77; BMI 37.1
== END ==
PROVIDERS: PCP Nurse Practitioner; Visit Provider Nurse Practitioner Women's Health
DX: N89.8 Other specified noninflammatory disorders of vagina (principal)
CPT/HCPCS: 87624

== ENCOUNTER 2022-07-04 20:07 | Emergency (ER) | payer MEDICAID, SELFPAY ==
[2022-06-21 14:52] VITALS: BP 140/82; BMI 36.5
[2022-07-04 20:22] VITALS: BP 92/74; PULSE 95; RESP 14; TEMP 36.6; O2SAT 97; BMI 36.3
[2022-07-04 21:38] LABS: Basophils % 0.4 %; Eosinophils # 0.3 10^3/uL (0.0-0.8); Eosinophils % 2.6 %; Hematocrit 44.8 % (37.0-47.0); Hemoglobin 14.2 g/dL (11.5-15.3); Lymphocytes # 3.1 10^3/uL (0.8-4.8); Lymphocytes % 29.1 %; Mean Corpuscular HGB Conc 31.7 g/dL (30.0-36.0); Mean Corpuscular Hemoglobin 26.8 pg (28.0-34.0); Mean Corpuscular Volume 84.5 fl (81-99); Mean Platelet Volume 10.4 fL (7.4-10.4); Monocytes # 0.8 10^3/uL (0.2-0.9); Monocytes % 7.9 %; Neutrophils # 6.39 10^3/uL (1.8-7.7); Neutrophils % 59.8 %; Nucleated Red Blood Cells % 0 %; Platelet Count 322 10^3/cmm (130-400); Red Cell Distribution Width 14.6 % (12.1-15.1); White Blood Count 10.7 10^3/uL (4.0-10.0)
[2022-07-04 21:53] LABS: Alanine Aminotransferase 13 U/L (0-33); Albumin Level 3.8 g/dL (3.5-5.2); Alkaline Phosphatase 150 U/L (35-105); Anion Gap 15.8 (5-19); Aspartate Amino Transferase 14 U/L (0-32); Blood Urea Nitrogen 12 mg/dL (6-20); Calcium 9.3 mg/dL (8.5-10.5); Carbon Dioxide 22 mmol/L (22-29); Chloride 107 mmol/L (98-107); Globulin 3.2 g/dL (1.3-4.6); Glomerular Filtration Rate 86.9 mL/min (90-130); Glucose 195 mg/dL (65-115); Lipase 27 U/L (13-60); Osmolality Calculated 297 mOsm/kg (285-295); Potassium 3.8 mmol/L (3.5-5.1); Sodium 141 mmol/L (136-145); Total Bilirubin 0.2 mg/dL (0.15-1.2)
[2022-07-04 23:46] VITALS: BP 112/63; PULSE 88; RESP 15; TEMP 36.7; O2SAT 98
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
--- NOTE | 2022-07-05 00:08 | CTR_ITS ---
PROCEDURE INFORMATION: Exam: CT Abdomen And Pelvis With Contrast Exam date and time: 07/05/2022 12:28 AM Age: 56 years old Clinical indication: Other: Diarrhea; Abdominal pain; Generalized; Additional info: Generalized abdominal pain, 2 weeks of diarrhea, nausea, vom TECHNIQUE: Imaging protocol: Computed tomography of the abdomen and pelvis with contrast. Radiation optimization: All CT scans at this facility use at least one of these dose optimization techniques: automated exposure control; mA and/or kV adjustment per patient size (includes targeted exams where dose is matched to clinical indication); or iterative reconstruction. Contrast material: OMNI 350; Contrast volume: 100 ml; Contrast route: INTRAVENOUS (IV); REPORTING DATA: Count of CT and Cardiac NM exams in prior 12 months: This patient has received [address] and 0 known cardiac nuclear medicine studies in the 12 months prior to the current study. COMPARISON: CT abdomen pelvis w con* [id number] 08/05/2019 4:54 PM RADIATION DOSE METRICS: Total DLP (mGy-cm): 966.8 FINDINGS: Liver: Continued low-density lesion right inferior liver with some peripheral lobulated enhancement most consistent with benign hepatic hemangioma. Gallbladder and bile ducts: Stable cholecystectomy. Pancreas: Normal. No ductal dilation. Spleen: Normal. No splenomegaly. Adrenal glands: Normal. No mass. Kidneys and ureters: Normal. No hydronephrosis. Stomach and bowel: Unremarkable. No obstruction. No mucosal thickening. Appendix: No evidence of appendicitis. Intraperitoneal space: Unremarkable. No free air. No significant fluid collection. Vasculature: Unremarkable. No abdominal aortic aneurysm. Lymph nodes: Unremarkable. No enlarged lymph nodes. Urinary bladder: Unremarkable as visualized. Reproductive: Stable hysterectomy. Bones/joints: Stable one or more healed right rib fractures. Stable metallic fixation of posterior arch left hip with severe left hip osteoarthritis. Soft tissues: Unremarkable. CT/CT abdomen pelvis w con* [id number] IMPRESSION: 1. Continued low-density lesion right inferior liver with some peripheral lobulated enhancement most consistent with benign hepatic hemangioma. 2. Stable hysterectomy.
[2022-07-05 00:23] VITALS: BP 118/84; PULSE 91; RESP 16; O2SAT 97
[2022-07-05] MEDS: iohexol 350 mg/mL 500 mL Btl (per mL) IV (00:32)
[2022-07-05 00:36] LABS: Protein Urine Neg (Negative); Urine Appearance SL Hazy (CLEAR); Urine Color Yellow (Yellow); pH Urine 5 (5-7)
[2022-07-05 00:37] LABS: Add Urine Microscopic? YES; Bacteria Urine 2+ /hpf; Bilirubin Urine Neg (Negative); Blood Urine Neg (Negative); Glucose Urine UA 4+ (Normal); Ketones Urine Negative (Negative); Leukocyte Esterase Urine 1+ (Negative); Mucus Urine 1+ /hpf; Nitrate Urine Negative (Negative); RBC Urine 0-4 /hpf (0-2); Urobilinogen Urine Neg (Negative)
[2022-07-05 00:38] LABS: Add Urine Culture? Yes
[2022-07-05 02:22] VITALS: BP 115/63; PULSE 79; RESP 16; O2SAT 97
[2022-07-05 03:11] VITALS: BP 116/68; PULSE 88; RESP 16; O2SAT 99
[2022-07-06 13:14] LABS: Clostridium Difficile PCR NOT DETECTED (NOT DETECTED)
== END 2022-07-05 03:27 | disposition home or self-care (01) ==
PROVIDERS: Emergency Provider Emergency Medicine; PCP Nurse Practitioner
DX: A09 Infectious gastroenteritis and colitis, unspecified (principal); Z79.01 Long term (current) use of anticoagulants; Z79.4 Long term (current) use of insulin; Z79.85 Long-term (current) use of injectable non-insulin antidiabetic drugs; J44.9 Chronic obstructive pulmonary disease, unspecified; E11.9 Type 2 diabetes mellitus without complications; E78.2 Mixed hyperlipidemia
CPT/HCPCS: 36415; 74177; 80053; 81001; 83690; 85025; 87086; 87493; 99284; Q9967

== ENCOUNTER 2022-07-06 22:36 | Emergency (ER) | payer MEDICAID, SELFPAY ==
[2022-06-21 14:52] VITALS: BP 140/82; BMI 36.5
[2022-07-06 22:43] VITALS: BP 116/69; PULSE 81; RESP 16; TEMP 36.8; O2SAT 98
[2022-07-06 22:54] VITALS: BP 126/80; PULSE 80; RESP 16; O2SAT 98
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
[2022-07-06] MEDS: sodium chloride 0.9% 1,000 ML 999 ML IV (23:24)
[2022-07-06 23:28] LABS: Basophils # 0.1 10^3/uL (0.0-0.1); Basophils % 0.7 %; Eosinophils # 0.2 10^3/uL (0.0-0.8); Eosinophils % 2.2 %; Hematocrit 41.7 % (37.0-47.0); Hemoglobin 13.6 g/dL (11.5-15.3); Lymphocytes # 2.7 10^3/uL (0.8-4.8); Lymphocytes % 32.5 %; Mean Corpuscular HGB Conc 32.6 g/dL (30.0-36.0); Mean Corpuscular Hemoglobin 27.3 pg (28.0-34.0); Mean Corpuscular Volume 83.7 fl (81-99); Monocytes # 0.8 10^3/uL (0.2-0.9); Monocytes % 9.4 %; Neutrophils # 4.55 10^3/uL (1.8-7.7); Nucleated Red Blood Cells % 0 %; Platelet Count 282 10^3/cmm (130-400); Red Blood Count 4.98 10^6/uL (4.1-5.3); Red Cell Distribution Width 14.4 % (12.1-15.1); White Blood Count 8.3 10^3/uL (4.0-10.0)
[2022-07-06 23:31] VITALS: BP 138/55; PULSE 78; RESP 16; O2SAT 98
[2022-07-07 00:01] VITALS: BP 163/63; PULSE 88; RESP 16; O2SAT 99
[2022-07-07 00:01] LABS: Alanine Aminotransferase 15 U/L (0-33); Albumin Level 3.8 g/dL (3.5-5.2); Alkaline Phosphatase 143 U/L (35-105); Aspartate Amino Transferase 14 U/L (0-32); Blood Urea Nitrogen 11 mg/dL (6-20); Calcium 8.8 mg/dL (8.5-10.5); Carbon Dioxide 24 mmol/L (22-29); Globulin 2.9 g/dL (1.3-4.6); Glomerular Filtration Rate 103.8 mL/min (90-130); Glucose 165 mg/dL (65-115); Total Bilirubin 0.2 mg/dL (0.15-1.2); Total Protein 6.7 g/dL (6.6-8.7)
[2022-07-07 00:04] LABS: Add Urine Microscopic? NO; Charge for UA Resulting for Rev
[2022-07-07 00:10] LABS: Urine Appearance Clear (CLEAR); Urine Color Yellow (Yellow)
[2022-07-07 00:11] LABS: Bilirubin Urine Neg (Negative); Blood Urine Neg (Negative); Glucose Urine UA 4+ (Normal); Ketones Urine Negative (Negative); Leukocyte Esterase Urine Negative (Negative); Nitrate Urine Negative (Negative); Protein Urine Neg (Negative); Urobilinogen Urine Norm (Negative); pH Urine 5 (5-7)
[2022-07-07 00:12] LABS: Anion Gap 15.3 (5-19); Chloride 105 mmol/L (98-107); Osmolality Calculated 295 mOsm/kg (285-295); Potassium 3.3 mmol/L (3.5-5.1); Sodium 141 mmol/L (136-145)
[2022-07-07] MEDS: potassium chloride ER 20 mEq Tablet 40 MEQ PO (00:38)
[2022-07-07 00:46] VITALS: BP 124/37; PULSE 82; RESP 16; O2SAT 99
[2022-07-07 01:13] VITALS: BP 124/37; PULSE 82; RESP 16; TEMP 36.8; O2SAT 99
== END 2022-07-07 00:30 | disposition home or self-care (01) ==
PROVIDERS: Emergency Provider Physician Assistant; PCP Nurse Practitioner
DX: R19.7 Diarrhea, unspecified (principal); R10.9 Unspecified abdominal pain
CPT/HCPCS: 80053; 81003; 85025; 96374; 99284; J7030

== ENCOUNTER → 2022-08-04 12:36 | Outpatient (BNVA) | payer MEDICAID, SELFPAY ==
[2022-06-21 14:52] VITALS: BP 140/82; BMI 36.5
== END ==
PROVIDERS: PCP Nurse Practitioner; Visit Provider Nurse Practitioner
DX: E11.65 Type 2 diabetes mellitus with hyperglycemia (principal); Z79.4 Long term (current) use of insulin
CPT/HCPCS: 80053

== ENCOUNTER 2022-09-20 14:06 | Emergency (ER) | payer MEDICAID, SELFPAY ==
[2022-06-21 14:52] VITALS: BP 140/82; BMI 36.5
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
[2022-09-20 14:23] VITALS: RESP 12; TEMP 37; O2SAT 87
--- NOTE | 2022-09-20 15:42 | PC.NURSE ---
Colette with [facility] ([phone]) has called and reports that patient is possible candidate for corneal donation and needs to be placed on a medical hold. She requests that saline drops be placed in patients eye and HOB elevated to 30 degress until she calls back to let us know if patient is released. Air Crew Member notified
--- NOTE | 2022-09-20 15:50 | PC.NURSE ---
saline drops applied to both eyes and head of bed elevated to 30 degrees per [facility] request
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
--- NOTE | 2022-09-20 21:55 | PC.NURSE ---
[facility] has called & said that patient will not be a donor per family.
--- NOTE | 2022-09-20 22:00 | PC.NURSE ---
[facility] [place] has been notified of need of transport of body.
== END 2022-09-20 18:18 | disposition expired ==
PROVIDERS: Emergency Provider Family Medicine; PCP Nurse Practitioner
DX: S22.5XXA Flail chest, initial encounter for closed fracture (principal); S39.81XA Other specified injuries of abdomen, initial encounter; S32.9XXA Fracture of unspecified parts of lumbosacral spine and pelvis, initial encounter for closed fracture; S72.92XA Unspecified fracture of left femur, initial encounter for closed fracture; S72.91XA Unspecified fracture of right femur, initial encounter for closed fracture; S82.891B Other fracture of right lower leg, initial encounter for open fracture type I or II; S30.0XXA Contusion of lower back and pelvis, initial encounter; J44.9 Chronic obstructive pulmonary disease, unspecified; E11.9 Type 2 diabetes mellitus without complications; E78.2 Mixed hyperlipidemia; Z79.01 Long term (current) use of anticoagulants; V89.2XXA Person injured in unspecified motor-vehicle accident, traffic, initial encounter
CPT/HCPCS: 31500; 71045; 86850; 86900; 86920; 99285; P9016